=== PATIENT | male | born 1950 | race Caucasian/White ===

== ENCOUNTER 2018-10-07 01:04 | Inpatient (IN) | payer MEDICARE, OTHER ==
[2018-10-07] MEDS ORDERED: NS 0.9% 1000 ML** 1,000 ML IV ONE ×2 (01:30→03:58)
[2018-10-07] MEDS ORDERED: Morphine 4 MG/ML VIAL (1 ml) 4 MG/ML VIAL IV ONE ×3 (01:30→06:42)
[2018-10-07] MEDS ORDERED: Ondansetron INJ* 2 MG/ML VIAL IV ONE (01:31)
--- NOTE | 2018-10-07 01:44 | ED ---
Abdominal Pain/Male - HPI Summary HPI Summary: This patient is a 68 year old male presenting to [facility] with a chief complaint of severe abdominal pains since 3 hours ago. He states it was initially constant but now it is intermittent. He states he had a small bowel movement 30 mins ago. He rates the pain 10/10 in severity. Patient has Hx of inguinal 1X and umbilical hernia 3X. - History of Current Complaint Chief Complaint: EDAbdPain Stated Complaint: ABD PAIN PER PT Hx Obtained From: Patient Onset/Duration: Sudden Onset, Lasting Hours Timing: Constant, Intermittent Severity Currently: Moderate Pain Intensity: 6 Pain Scale Used: 0-10 Numeric Location: Umbilical - Allergies/Home Medications Allergies/Adverse Reactions: Allergies Allergy/AdvReac Type Severity Reaction Status Date / Time No Known Allergies Allergy Verified 10/07/18 01:09 PMH/Surg Hx/FS Hx/Imm Hx Endocrine/Hematology History: Denies: Hx Diabetes Cardiovascular History: Denies: Hx Coronary Artery Disease GI History: Reports: Other GI Disorders - Umbilical and Inguinal Hernia Infectious Disease History: No Infectious Disease History: Denies: Traveled Outside the [place] in Last 30 Days - Family History Known Family History: Positive: Cardiac Disease, Diabetes - Social History Alcohol Use: Daily Hx Substance Use: No Hx Tobacco Use: No Review of Systems Negative: Fever Positive: Abdominal Pain All Other Systems Reviewed And Are Negative: Yes Physical Exam - Summary Physical Exam Summary: VITAL SIGNS: Reviewed. GENERAL: Patient is a well-developed and nourished MALE who is lying comfortable in the stretcher. Patient is not in any acute respiratory distress. HEAD AND FACE: No signs of trauma. No ecchymosis, hematomas or skull depressions. No sinus tenderness. EYES: PERRLA, EOMI x 2, No injected conjunctiva, no nystagmus. EARS: Hearing grossly intact. Ear canals and tympanic membranes are within normal limits. MOUTH: Oropharynx within normal limits. NECK: Supple, trachea is midline, no adenopathy, no JVD, no carotid bruit, no c- spine tenderness, neck with full ROM. CHEST: Symmetric, no tenderness at palpation LUNGS: Clear to auscultation bilaterally. No wheezing or crackles. CVS: Regular rate and rhythm, S1 and S2 present, no murmurs or gallops appreciated. ABDOMEN: Soft, Tenderness over the periumbilical area with localized swelling. Distention. No rebound no guarding, and no masses palpated. Hyperactive bowel sounds. EXTREMITIES: FROM in all major joints, no edema, no cyanosis or clubbing. NEURO: Alert and oriented x 3. No acute neurological deficits. Speech is normal and follows commands. SKIN: Dry and warm Triage Information Reviewed: Yes Vital Signs On Initial Exam: Initial Vitals Temp Pulse Resp BP Pulse Ox 98.5 F 62 18 118/86 95 10/07/18 01:08 10/07/18 01:08 10/07/18 01:08 10/07/18 01:08 10/07/18 01:08 Vital Signs Reviewed: Yes Diagnostics - Vital Signs Vital Signs Temp Pulse Resp BP Pulse Ox 10/07/18 01:08 98.5 F 62 18 118/86 95 - Laboratory Result Diagrams: 10/07/18 01:48 10/07/18 01:48 Lab Statement: Any lab studies that have been ordered have been reviewed, and results considered in the medical decision making process. - CT Abd/Pel CT Interpretation Completed By: Radiologist Summary of CT Findings: 1. Constellation of findings most consistent with developing high grade small bowel obstruction, probably secondary to adhesion. 2. Colonic diverticulosis with no evidence of acute diverticulitis. 3. Multiple roudn hypodense lesions throughout the liver with the largest one on the left hepatic lobe measuring 2.3 cm which may represent cysts versus hemangiomas. ED Provider has reviewed this report. Abdominal Pain Male Course/Dx - Course Course Of Treatment: This patient is a 68 year old male presenting to [facility] with a chief complaint of severe abdominal pains since 3 hours ago. Abdomen/ Pelvis CT reveals 1. Constellation of findings most consistent with developing high grade small bowel obstruction, probably secondary to adhesion. 2. Colonic diverticulosis with no evidence of acute diverticulitis. 3. Multiple roudn hypodense lesions throughout the liver with the largest one on the left hepatic lobe measuring 2.3 cm which may represent cysts versus hemangiomas. Dr. Spangler, Surgery, accepts the patient for admission. This plan for admission was discussed with the patient and he was agreeable with this plan. - Diagnoses Provider Diagnoses: Small bowel obstruction - Provider Notifications Discussed Care Of Patient With: Giovanna Spangler - Surgery Time Discussed With Above Provider: 05:00 Instructed by Provider To: Admit As Inpatient Discharge - Sign-Out/Discharge Documenting (check all that apply): Patient Departure - Admission - Discharge Plan Condition: Stable Disposition: ADMITTED TO [facility] Referrals: Polo Scott MD [Primary Care Provider] - - Attestation Statements Document Initiated by Scribe: Yes Documenting Scribe: Augusto Michele Provider For Whom Scribe is Documenting (Include Credential): Franco Juan MD Scribe Attestation: IAugusto, scribed for Franco Juan MD on 10/07/18 at 0512. Status of Scribe Document: Ready
[2018-10-07 02:03] LABS: ABS Eosinophils 0.1 10^3/ul (0-0.6); ABS Lymphocytes 1.1 10^3/ul (1.0-4.8); ABS Monocytes 0.6 10^3/ul (0-0.8); ABS Neutrophils 10.7 10^3/ul (1.5-7.7); Hematocrit 47 % (42-52); Hemoglobin 15.6 g/dL (14.0-18.0); Lymphocyte % 8.8 %; Mean Corpuscular HGB Conc 33 g/dL (31-36); Mean Corpuscular Hemoglobin 29 pg (27-31); Mean Corpuscular Volume 89 fL (80-94); Mean Platelet Volume 7.6 fL (7.4-10.4); Platelet Count 249 10^3/uL (150-450); Red Blood Count 5.32 10^6 /uL (4.18-5.48); Red Cell Distribution Width 14 % (10.5-15); White Blood Count 12.6 10^3/uL (3.5-10.8)
[2018-10-07 02:04] LABS: Activated Partial Thrombo Time 26.3 seconds (26.0-36.3); INR 1.15 (0.82-1.09)
[2018-10-07 02:13] LABS: Albumin 4.4 g/dL (3.2-5.2); Albumin/Globulin Ratio 1.6 (1-3); C Reactive Protein 4.67 mg/L (<8.01); Calcium 9.8 mg/dL (8.6-10.3); EGFR African American 101.2 (>60); EGFR Non-African American 83.7 (>60); Globulin 2.7 g/dL (2-4); Potassium 4.2 mmol/L (3.5-5.0); Total Bilirubin 0.5 mg/dL (0.2-1.0); Total Protein 7.1 g/dL (6.4-8.9)
[2018-10-07] MEDS ORDERED: Iohexol 300* (CONTRAST) 10 ML SDV IV ONE (02:32)
[2018-10-07] MEDS ORDERED: Piperacillin/Tazobac ADVAN(*) 3.375 GM in NS 0.9% 100 ML* 100 ML IVPB ONE (03:34)
[2018-10-07] MEDS ORDERED: Ondansetron INJ* 2 MG/ML VIAL IV PRN (06:42)
[2018-10-07] MEDS ORDERED: Morphine INJ* 2 MG/ML 1 ML SYRINGE (TWO MG - NEW SYRINGE VERSION) IV PRN (06:46)
[2018-10-07] MEDS ORDERED: Acetaminophen SUPP* 650 MG SUPP PR PRN (06:49)
[2018-10-07] MEDS: Heparin VIAL(*) 5000 UNITS/ML VIAL (FIVE THOUSAND) SUBCUT SCH ×2 (10:15→20:19)
--- NOTE | 2018-10-07 10:25 | HP ---
HISTORY AND PHYSICAL: DATE OF ADMISSION: 10/07/18 SERVICE: General Surgery. ATTENDING SURGEON: Giovanna Spangler MD. REASON FOR ADMISSION: Small-bowel obstruction. HISTORY OF PRESENT ILLNESS: Mr. Chong is a very pleasant 68-year-old gentleman who is a former smoker and has a history of pulmonary emboli who presented to the emergency room with less than 1 day of increasing abdominal pain. The patient notes that he was in his normal state of health until approximately 7: 30 the evening prior to admission. He said that after dinner he started having crampy abdominal pain, which he thought was indigestion. However, after he went to sleep, he found that the pain continued to worsen and that he was unable to fall asleep. Therefore, he came to the emergency room. He describes his pain as being crampy and episodic and saying that it goes up to about 8/10 and then it decreases to about 4 to 5 out of 10. He last had flatus yesterday evening and he last had a bowel movement around midnight. He also said that he normally has regular bowel movements every day and that they are typically soft. He has never had a small-bowel obstruction before. His abdominal surgical history is significant for 3 umbilical hernia repairs. He said that he had a very small umbilical hernia many years ago and the first time it was repaired open; however, it recurred and he had it repaired a second time, also open without mesh, however, this also recurred. He said his third operation was approximately 8 years ago at [facility] in [place], and that this time it was done laparoscopically and a piece of mesh was placed. He states since then he has been doing well. He also has a history of right inguinal hernia repair. Currently, he has no other complaints. He said he has been doing a lot of heavy lifting recently for yard work. PAST MEDICAL HISTORY: 1. Superficial thrombophlebitis. 2. Pulmonary emboli. The patient notes that this was several years ago. He was short of breath after a fishing trip in [place] and when he was evaluated, he was found to have subsegmental pulmonary emboli. He had previously been on Xarelto and stopped this several years ago and is now currently on aspirin 81 mg p.o. daily for this. PAST SURGICAL HISTORY: 1. Umbilical hernia repair x3. 2. Right inguinal hernia repair. MEDICATIONS: 1. Aspirin 81 mg p.o. daily. 2. Centrum daily. ALLERGIES: No known drug allergies. FAMILY HISTORY: Positive for cardiac disease and diabetes. SOCIAL HISTORY: The patient is a former smoker. He lives with his in [place]. 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 REVIEW OF SYSTEMS: Negative, except for abdominal pain. PHYSICAL EXAMINATION GENERAL: This is an elderly man, lying comfortably on the stretcher, in no apparent distress. VITAL SIGNS: Temperature is 98.5, pulse is 70, respiratory rate is 16, O2 sat is 95% O2 on 2 L nasal cannula, blood pressure is 132/86. HEENT: Normocephalic, atraumatic. NG tube is in place with gastric-appearing fluid in the canister. RESPIRATORY: Clear to auscultation bilaterally. CARDIOVASCULAR: Regular rate and rhythm. ABDOMEN: Soft. Minimally distended. Tender to deep palpation just above the umbilicus and also slightly tender in the right lower quadrant. No rebound. No guarding. NEUROLOGIC: Alert and oriented x3. DIAGNOSTIC STUDIES/LAB DATA: Laboratory Values: White blood cell count 12.6, hemoglobin 13.6, hematocrit 47, platelets are 249. INR is 1.15. Sodium is 139 , potassium is 4.2, chloride is 104, CO2 is 26, BUN is 18, creatinine 0.9, glucose is 125, lactic acid is 1.3, calcium is 9.8. Total bilirubin is 0.5, AST is 21, ALT is 20, alkaline phosphatase is 73, amylase is 40, lipase is 24. Radiology: CT abdomen and pelvis, dilation of small-bowel loop with air-fluid level and fecal matter with collapsed distal ileum due to developing high-grade small-bowel obstruction, partial adhesion of small-bowel loop to anterior peritoneal wall, colonic diverticulosis with no evidence of acute diverticulitis , a small hiatal hernia, multiple round hypodense lesions in the liver with the largest one in the hepatic lobe measuring 23 mm which may represent cysts versus hemangiomas. ASSESSMENT AND PLAN: Mr. Chong is a very pleasant 68-year-old gentleman who is a former smoker and has a history of pulmonary emboli and also has a surgical history significant for 3 umbilical hernia surgery repairs (the last one with mesh) who presented to the emergency room with less than 24 hours of periumbilical crampy abdominal pain and had a CT scan concerning for a small- bowel obstruction. I reviewed the CT scan and labs, and I discussed with the patient that he does have a small-bowel obstruction. Currently, his pain is fairly well controlled with minimal pain medications and he only has some slight tenderness. I explained to him that at this time that small-bowel obstructions after surgery are typically due to adhesions and that if there is no immediate evidence of bowel compromise, we typically proceed with conservative management consisting of NG tube placement for bowel decompression as well as bowel rest. He will be monitored and if his pain increases or his bowel obstruction seems to fail with conservative management, he may require surgery. He understands these things. The patient also is a former smoker and does have a history of pulmonary emboli in the past. Currently, he requires 4 L nasal cannula to maintain his saturations in the mid 90s and he has desaturated down into the lower 80s after being administered morphine. I have consulted the hospitalist service to follow along for his hypoxia. I have also counseled the patient that he should perform an incentive spirometry while he is lying in bed and that he should also ambulate several times a day, which he can do with the NG tube off of suction. The patient will be made n.p.o. IV fluids will be started. NG tube will be to low continuous wall suction. He will have morphine and Toradol p.r.n. for pain relief and Zofran for p.r.n. medication for nausea. Currently, his aspirin is being held. [id number]/[facility] #: [id number] CROUSE HOSPITALLeslee
[2018-10-07] MEDS ORDERED: Iohexol 350* (CONTRAST) 500 ML MDV IV ONE (13:29)
[2018-10-07] MEDS: Ketorolac INJ* 30 MG/ML 1 ML VIAL IV PRN ×2 (13:30→21:44)
--- NOTE | 2018-10-07 16:32 | CONS ---
HOSPITAL MEDICINE CONSULTATION REPORT: DATE OF CONSULT: 10/07/18 ATTENDING PHYSICIAN: Dr. Giovanna Spangler. CONSULTING PHYSICIAN: Dr. Fabiola Abdalla (dictation provided by Sylwia Moreau NP). REASON FOR CONSULTATION: Hypoxia in setting of SBO. HISTORY OF PRESENT ILLNESS: Mr. Chong is a 68-year-old male with a past medical history of pulmonary emboli, associated with travel, and umbilical hernia repair x3, who presented to the hospital on 10/07/18 with concern for abdominal pain. Please see dictated H and P from Giovanna Spangler MD, for complete details. In brief, the patient stated he was in his normal state of health until 7:30 the evening of admission. He had crampy abdominal pain. Pain continued to worsen and therefore he came to the ED. His last bowel movement was at midnight that night. In the emergency room, he had an abdomen and pelvis CT, which showed concern for a small bowel obstruction. The patient had labs, showed mild leukocytosis, white blood cell count 12.6, but were otherwise unremarkable. The patient had an NG tube placed and was admitted to the hospital by the surgical team. Mr. Chong has been noted to be hypoxic on room air. He was noted to have an O2 saturation into the 80s while sleeping. Today, he was noted to be up ambulating independently without oxygen and had an O2 saturation of 88% on return to his room. He has no history of lung disease, but does have a distant history of smoking, quitting 20 years ago. He also has the aforementioned history of pulmonary embolism. He is not tachycardic. He is not tachypneic. PAST MEDICAL HISTORY: 1. History of umbilical hernia repair x3. 2. History of pulmonary emboli associated with travel. MEDICATIONS: Outpatient are: 1. Aspirin 81 mg p.o. daily. 2. Centrum p.o. daily. ALLERGIES: No known drug allergies. FAMILY HISTORY: Positive for cardiac disease and diabetes. SOCIAL HISTORY: The patient is a former smoker. He quit 20 years ago. No reported alcohol drug use. 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 REVIEW OF SYSTEMS: A 14-point review of systems was completed with Mr. Chong and all of those not mentioned above were negative. PHYSICAL EXAM: Vital Signs: Temperature 98.2, but he has had a fever up to 100.1 , pulse rate 62, respiratory rate 17, O2 saturation 98% on 4 L nasal cannula, blood pressure 115/65. General: Mr. Chong was initially seen upon ambulating in the hallway, not on oxygen. He is no acute distress. No respiratory distress. Breathing easily. Neuro: He is alert. He is oriented x3. He moves all extremities equally. There is no facial asymmetry or focal weakness. Extraocular movements are intact. Heart: S1, S2. No murmur, rub, or gallop and regular. Lungs: Clear to auscultation bilaterally. No accessory muscles use. Good aeration. Abdomen: Soft. There is tenderness in the middle of the abdomen above the umbilicus. Bowel sounds are hypoactive. Extremities: No cyanosis or edema. Skin: Intact. DIAGNOSTIC STUDIES/LAB DATA: Sodium 139, potassium 4.2, chloride 104, serum bicarbonate 26, BUN 18, creatinine 0.90, glucose 125, lactic acid 1.3. WBC 12.6 , hemoglobin 15.6, hematocrit 47, platelet count 249. INR 1.15. PT 26.3. The abdomen and pelvis CT is as follows: "Constellation of findings most consistent with developing high-grade small bowel obstruction, probably secondary to adhesion, colonic diverticulosis with no evidence of acute diverticulitis. Multiple round hypodense lesions throughout the liver with the largest one in the left hepatic lobe measuring 2.3 cm, which may represent cyst versus hemangiomas." ASSESSMENT: Mr. Chong is a 68-year-old male with past medical history of 3 umbilical hernia repairs, who presents to the hospital today with concern for a small bowel obstruction and hypoxia. He has been admitted by surgical team and a consultation has been made to the medicine service regarding his hypoxia. RECOMMENDATIONS: Our recommendations are as follows: 1. Hypoxia: Initially, I had a strong suspicion that the patient had atelectasis due to pain and lack of taking a deep breath leading to his hypoxia. However, despite being up ambulating on the unit and seeming to be breathing easily with no report of pain in the abdomen, he continued to be hypoxic. Therefore, I plan to order a D-dimer; if it is negative, workup will be completed for PE, but if it is elevated, we will need to go into CTA chest to adequately rule out PE. He has no evidence of pneumonia. 2. Small bowel obstruction. Management per Surgery. 3. Code status is full code. TIME SPENT: Approximately 60 minutes were spent in consultation of this patient ; more than half of the time spent with the patient at the bedside reviewing the events leading up to this hospitalization, performing physical examination and reviewing my plan of care. SYLWIA MOREAU NP [id number]/[facility] #: [id number] [facility]
[2018-10-07] MEDS: Lactated Ringers 1000 ML Bag* 1,000 ML IV SCH (17:18)
[2018-10-08 00:39] LABS: ABS Eosinophils 0.1 10^3/ul (0-0.6); ABS Monocytes 0.5 10^3/ul (0-0.8); ABS Neutrophils 9.8 10^3/ul (1.5-7.7); Eosinophil % 0.5 %; Hematocrit 40 % (42-52); Hemoglobin 13.3 g/dL (14.0-18.0); Mean Corpuscular HGB Conc 33 g/dL (31-36); Mean Corpuscular Hemoglobin 29 pg (27-31); Mean Corpuscular Volume 88 fL (80-94); Mean Platelet Volume 7.7 fL (7.4-10.4); Platelet Count 212 10^3/uL (150-450); Red Blood Count 4.56 10^6 /uL (4.18-5.48); Red Cell Distribution Width 14 % (10.5-15); White Blood Count 11.5 10^3/uL (3.5-10.8)
[2018-10-08 06:22] LABS: Calcium 8.7 mg/dL (8.6-10.3); Potassium 3.8 mmol/L (3.5-5.0)
[2018-10-08 06:28] LABS: BUN/Creatinine Ratio 19.2 (8-20); EGFR African American 119.4 (>60); EGFR Non-African American 98.7 (>60)
--- NOTE | 2018-10-08 08:16 | PN ---
Progress Note - Progress Note Date of Service: 10/08/18 Note: Surgery Progress Note S: Patient was seen yesterday afternoon and this morning by myself. Yesterday' s events were noted. He continues to desaturate to low-mid 80s without supplemental O2. D dimer was elevated so CTA chest to evaluate for PE was ordered and resulted negative for PE. Patient this morning was noted to have abnormal heart rhythm, EKG was ordered and found to be in atrial fibrillation. Patient says he has never known of desaturations, never had afib before. He has never felt any irregular heart beats or skipped beats at home. He walks everyday several miles. Regarding his abdominal pain, he says he has no pain. He has a twinge of pain, 2/10 when he gets out of bed. No flatus or BM yet. Has heard bowel sounds. O: Vital Signs: Temp Pulse Resp BP Pulse Ox 98.5 F 88 16 99/56 91 10/08/18 07:15 10/08/18 07:15 10/08/18 08:00 10/08/18 07:15 10/08/18 07:15 Laboratory Last Values WBC 11.5 10^3/uL (3.5-10.8) H 10/08/18 00:28 RBC 4.56 10^6 /uL (4.18-5.48) 10/08/18 00:28 Hgb 13.3 g/dL (14.0-18.0) L 10/08/18 00:28 Hct 40 % (42-52) L 10/08/18 00:28 MCV 88 fL (80-94) 10/08/18 00:28 MCH 29 pg (27-31) 10/08/18 00:28 MCHC 33 g/dL (31-36) 10/08/18 00:28 RDW 14 % (10.5-15) 10/08/18 00:28 Plt Count 212 10^3/uL (150-450) 10/08/18 00:28 MPV 7.7 fL (7.4-10.4) 10/08/18 00:28 Neut % (Auto) 85.4 % 10/08/18 00:28 Lymph % (Auto) 9.0 % 10/08/18 00:28 Briscoe % (Auto) 4.7 % 10/08/18 00:28 Eos % (Auto) 0.5 % 10/08/18 00:28 Baso % (Auto) 0.4 % 10/08/18 00:28 Absolute Neuts (auto) 9.8 10^3/ul (1.5-7.7) H 10/08/18 00:28 Absolute Lymphs (auto) 1.0 10^3/ul (1.0-4.8) 10/08/18 00:28 Absolute Monos (auto) 0.5 10^3/ul (0-0.8) 10/08/18 00:28 Absolute Eos (auto) 0.1 10^3/ul (0-0.6) 10/08/18 00:28 Absolute Basos (auto) 0.0 10^3/ul (0-0.2) 10/08/18 00:28 Absolute Nucleated RBC 0.0 10^3/ul 10/08/18 00:28 Nucleated RBC % 0.0 10/08/18 00:28 INR (Anticoag Therapy) 1.15 (0.82-1.09) H 10/07/18 01:48 APTT 26.3 seconds (26.0-36.3) 10/07/18 01:48 D-Dimer, Quantitative 385 ng/mL (Less Than 230) H 10/07/18 11:36 Sodium 139 mmol/L (135-145) 10/08/18 04:41 Potassium 3.8 mmol/L (3.5-5.0) 10/08/18 04:41 Chloride 109 mmol/L (101-111) 10/08/18 04:41 Carbon Dioxide 24 mmol/L (22-32) 10/08/18 04:41 Anion Gap 6 mmol/L (2-11) 10/08/18 04:41 BUN 15 mg/dL (6-24) 10/08/18 04:41 Creatinine 0.78 mg/dL (0.67-1.17) 10/08/18 04:41 Est GFR ( Amer) 119.4 (>60) 10/08/18 04:41 Est GFR (Non-Af Amer) 98.7 (>60) 10/08/18 04:41 BUN/Creatinine Ratio 19.2 (8-20) 10/08/18 04:41 Glucose 123 mg/dL (70-100) H 10/08/18 04:41 Lactic Acid 1.3 mmol/L (0.5-2.0) 10/07/18 01:48 Calcium 8.7 mg/dL (8.6-10.3) 10/08/18 04:41 Total Bilirubin 0.50 mg/dL (0.2-1.0) 10/07/18 01:48 AST 21 U/L (13-39) 10/07/18 01:48 ALT 20 U/L (7-52) 10/07/18 01:48 Alkaline Phosphatase 73 U/L (34-104) 10/07/18 01:48 C-Reactive Protein 4.67 mg/L (<8.01) 10/07/18 01:48 Total Protein 7.1 g/dL (6.4-8.9) 10/07/18 01:48 Albumin 4.4 g/dL (3.2-5.2) 10/07/18 01:48 Globulin 2.7 g/dL (2-4) 10/07/18 01:48 Albumin/Globulin Ratio 1.6 (1-3) 10/07/18 01:48 Amylase 40 U/L (29-103) 10/07/18 01:48 Lipase 24 U/L (11.0-82.0) 10/07/18 01:48 Blood Type B Positive 10/07/18 01:48 Antibody Screen Negative 10/07/18 01:48 Intake & Output 10/07/18 10/08/18 10/08/18 22:59 06:59 14:59 Intake Total 959 450 Output Total 300 110 Balance 659 340 Intake: IV Fluids 959 LR 959 Oral 0 450 Output: NG Tube Drainage Amount 50 110 Urine 250 0 Other: # Bowel Movements 0 NGT x 12 hour, approximately 160cc Physical exam: Abd- soft, non tender, minimally distended, +bowel sounds Resp- CTAB Card- irregular rhythm A/P: 68 M former smoker, history of PE, history of UHR x 3 with SBO. - Patient appears to be improving regarding his SBO although he still does not have any bowel function. If NGT output remains low today I will remove NGT later this afternoon and keep NPO until he has flatus. His pain is much improved and his exam is improved. - Hypoxia: uncertain what the etiology is, he does not have PE or much atelectasis. Not very distended on exam so it is unlikely mechanical from his SBO. Likely chronic, although patient has excellent exercise tolerance from his history and has no symptomatic SOB. Will likely have to follow up with PCP , and discussed this with patient. Will defer this care to hospitalists. - New onset atrial fibrillation: awaiting hospitalist evaluation. Will discuss if cardiology should be consulted. - Diet: NPO, IVF - PPX: HSQ - Continue OOB and ambulation
[2018-10-08] MEDS: Metoprolol Tartrate TAB* 25 MG PO SCH ×2 (10:33→22:07)
[2018-10-08] MEDS: Heparin VIAL(*) 5000 UNITS/ML VIAL (FIVE THOUSAND) SUBCUT SCH ×2 (10:33→22:11)
[2018-10-08] MEDS: Lactated Ringers 1000 ML Bag* 1,000 ML IV SCH ×2 (10:45→17:49)
--- NOTE | 2018-10-08 15:04 | PN ---
Subjective Date of Service: 10/08/18 Interval History: Mr. Chong is feeling much better today. His abdominal pain has resolved and he is only having abdominal tenderness now, centered around umbilicus. Worse with movement in bed. Still feels bloated, but improved from yesterday. Not passing any flatus and no BM. Anxious to have NG tube removed. Denies CP, SOB, nausea, palpitations. Nursing reported new onset afib this morning. Tele: afib in the low 100s, now converted to NSR. Family History: Unchanged from Admission Social History: Unchanged from Admission Past Medical History: Unchanged from Admission Objective Active Medications: Acetaminophen (Tylenol Supp*) 650 mg IN Q6H PRN PAIN - MILD Heparin Sodium (Porcine) (Heparin Vial(*)) 5,000 units SUBCUT Q12HR WALDEMAR Lactated Ringer's (Lactated Ringers 1000 Ml Bag*) 1,000 mls @ 125 mls/hr IV PER RATE WALDEMAR Ketorolac Tromethamine (Toradol Inj*) 30 mg IV Q6H PRN PAIN Metoprolol Tartrate (Lopressor Tab*) 12.5 mg PO Q12HR WALDEMAR Morphine Sulfate (Morphine Inj (Syringe))*) 2 mg IV Q1H PRN PAIN - MILD Ondansetron HCl (Zofran Inj*) 4 mg IV Q4H PRN NAUSEA/VOMITING Vital Signs - 8 hr 10/08/18 10/08/18 10/08/18 07:15 08:00 11:16 Temperature 98.5 F 98.2 F Pulse Rate 88 82 Respiratory 17 16 18 Rate Blood Pressure 99/56 114/61 (mmHg) O2 Sat by Pulse 91 94 Oximetry 10/08/18 10/08/18 12:46 14:09 Temperature 98.4 F Pulse Rate 73 Respiratory 16 Rate Blood Pressure 114/62 (mmHg) O2 Sat by Pulse 93 91 Oximetry Oxygen Devices in Use Now: Nasal Cannula - 2L Appearance: Middle-aged male sitting in bed in NAD Eyes: No Scleral Icterus Ears/Nose/Mouth/Throat: Mucous Membranes Moist Neck: NL Appearance and Movements; NL JVP, Trachea Midline Respiratory: Symmetrical Chest Expansion and Respiratory Effort, Clear to Auscultation Cardiovascular: NL Sounds; No Murmurs; No JVD, RRR Abdominal: - - Large, distended; umbilicus tender to palpation; BS normoactive L side and hypoactive R side Extremities: No Edema Skin: No Rash or Ulcers Neurological: Alert and Oriented x 3 Lines/Tubes/Other Access: Clean, Dry and Intact Naso-enteral Tube, Clean, Dry and Intact Peripheral IV Result Diagrams: 10/08/18 00:28 10/08/18 04:41 Assess/Plan/Problems-Billing Assessment: Mr. Chong is a 68 yo M with PMH of provoked PE who presented to the ED with c/o abdominal pain and was found to have a SBO. Hospital Medicine was asked to consult for hypoxia, though the patient went into new onset afib and is now on the Hospitalists' service. - Patient Problems (1) SBO (small bowel obstruction) Code(s): K56.609 - UNSP INTESTNL OBST, UNSP TO PARTIAL VERSUS COMPLETE OBST Comment: - Presented with c/o 1 day of severe abdominal pain, now significantly improved - CT showed findings most consistent with developing high grade SBO, possibly secondary to adhesion - Surgery following; may remove NG today if symptoms continue to improve and will continue conservative management - Continue IVF, Zofran, Toradol (2) New onset atrial fibrillation Code(s): I48.91 - UNSPECIFIED ATRIAL FIBRILLATION Comment: - Found to be tachycardic overnight and EKG revealed afib at 105bpm - Asymptomatic - CHADsVASC2 score 1; no indication for anticoagulation - Started metoprolol and patient converted back to NSR shortly after - Monitor on telemetry - Continue metoprolol (3) Hypoxia Code(s): R09.02 - HYPOXEMIA Comment: - History of provoked DVT years ago, no longer on anticoagulation - Hypoxic into mid 80s on RA initially requiring 2L NC, now weaned down to 1L and sating low 90s - CTA unremarkable except for bibasilar atelectasis - Unclear etiology as he is typically quite active, walking up to 3 miles daily ; ? atelectasis, ? smoking history - Continue to wean oxygen as able (4) DVT prophylaxis Code(s): Z29.9 - ENCOUNTER FOR PROPHYLACTIC MEASURES, UNSPECIFIED Comment: - Heparin SQ (5) Full code status Code(s): Z78.9 - OTHER SPECIFIED HEALTH STATUS Comment: Status and Disposition: Inpatient. Anticipate d/c home when medically stable and cleared by Surgery. Attending: Augusto Nathan
[2018-10-09 00:03] LABS: Urine Appearance Cloudy; Urine Bacteria Absent (Absent); Urine Bilirubin Negative (Negative); Urine Blood Negative (Negative); Urine Color Amber; Urine Glucose Negative (Negative); Urine Ketones 2+ (Negative); Urine Nitrite Negative (Negative); Urine Protein 1+(30 mg/dL) (Negative); Urine Red Blood Cell 2+(6-10/hpf) (Absent); Urine Squamous Epithelial Cell Present (Absent); Urine Urobilinogen Negative (Negative); Urine White Blood Cell Trace(0-5/hpf) (Absent)
[2018-10-09 00:27] LABS: ABS Eosinophils 0.1 10^3/ul (0-0.6); ABS Lymphocytes 1.1 10^3/ul (1.0-4.8); ABS Monocytes 0.6 10^3/ul (0-0.8); ABS Neutrophils 7.9 10^3/ul (1.5-7.7); Eosinophil % 1.5 %; Hematocrit 41 % (42-52); Hemoglobin 13.7 g/dL (14.0-18.0); Lymphocyte % 11.5 %; Mean Corpuscular HGB Conc 33 g/dL (31-36); Mean Corpuscular Hemoglobin 30 pg (27-31); Mean Corpuscular Volume 89 fL (80-94); Mean Platelet Volume 7.5 fL (7.4-10.4); Platelet Count 217 10^3/uL (150-450); Red Blood Count 4.65 10^6 /uL (4.18-5.48); Red Cell Distribution Width 14 % (10.5-15); White Blood Count 9.9 10^3/uL (3.5-10.8)
[2018-10-09] MEDS: Lactated Ringers 1000 ML Bag* 1,000 ML IV SCH ×3 (03:08→16:40)
[2018-10-09 06:45] LABS: BUN/Creatinine Ratio 19.5 (8-20); Calcium 8.5 mg/dL (8.6-10.3); EGFR African American 121.2 (>60); EGFR Non-African American 100.2 (>60); Potassium 3.6 mmol/L (3.5-5.0)
[2018-10-09] MEDS: Heparin VIAL(*) 5000 UNITS/ML VIAL (FIVE THOUSAND) SUBCUT SCH ×2 (08:06→21:14)
[2018-10-09] MEDS: Metoprolol Tartrate TAB* 25 MG PO SCH ×2 (08:07→21:12)
--- NOTE | 2018-10-09 08:34 | PN ---
Progress Note - Progress Note Date of Service: 10/09/18 Note: Surgery Progress Note S: Patient feels very well. Has been ambulating already this morning and had flatus multiple times. Yesterday afternoon he said he had a small flatus then. He has no pain. He denies SOB. O: Vital Signs: Temp Pulse Resp BP Pulse Ox 97.9 F 76 18 143/65 92 10/09/18 07:46 10/09/18 07:46 10/09/18 07:46 10/09/18 07:46 10/09/18 07:46 Laboratory Results - last 24 hr 10/08/18 10/09/18 10/09/18 23:50 00:22 06:03 WBC 9.9 RBC 4.65 Hgb 13.7 L Hct 41 L MCV 89 MCH 30 MCHC 33 RDW 14 Plt Count 217 MPV 7.5 Neut % (Auto) 80.0 Lymph % (Auto) 11.5 [place] % (Auto) 6.6 Eos % (Auto) 1.5 Baso % (Auto) 0.4 Absolute Neuts (auto) 7.9 H Absolute Lymphs (auto) 1.1 Absolute Monos (auto) 0.6 Absolute Eos (auto) 0.1 Absolute Basos (auto) 0.0 Absolute Nucleated RBC 0.0 Nucleated RBC % 0.0 Sodium 140 Potassium 3.6 Chloride 108 Carbon Dioxide 24 Anion Gap 8 BUN 15 Creatinine 0.77 Est GFR ( Amer) 121.2 Est GFR (Non-Af Amer) 100.2 BUN/Creatinine Ratio 19.5 Glucose 101 H Calcium 8.5 L Urine Color Priscilla Urine Appearance Cloudy Urine pH 5.0 Ur Specific [place] 1.030 Urine Protein 1+(30 mg/dl) A Urine Ketones 2+ A Urine Blood Negative Urine Nitrate Negative Urine Bilirubin Negative Urine Urobilinogen Negative Ur Leukocyte Esterase Negative Urine WBC (Auto) Trace(0-5/hpf) Urine RBC (Auto) 2+(6-10/hpf) A Ur Squamous Epith Cells Present A Urine Bacteria Absent Urine Glucose Negative Intake & Output 10/08/18 10/09/18 10/09/18 22:59 06:59 14:59 Intake Total 480 480 Balance 480 480 Intake: Oral 480 480 Abd: soft, non tender, minimally distended, + tympany A/P: 68 M with h/o UHR x 3, former smoker, h/o PE with SBO, appears to be resolving. - DC NGT - Sips now, can likely start CLD later this afternoon - Discussed with patient we could consider a suppository but likely do not need that now since he is having return of bowel function - Continue OOB and ambulate - MTP for new onset afib, now in NSR. I told patient he would have to f/u with his PCP regarding both the afib and the hypoxia, which may be a chronic condition? - Continue HSQ for DVT ppx Discussed plan with patient's nurse and hospitalist, Nataliia Pate
--- NOTE | 2018-10-09 15:27 | PN ---
Subjective Date of Service: 10/09/18 Interval History: Mr. Chong is feeling better this morning. He has been passing some gas. No abdominal pain, but still some tenderness when moving in bed. He has been up ambulating around the unit. Denies CP, SOB, nausea. No palpitations. Nursing reported a large formed BM late morning. Tolerated clears for lunch. Tele: NSR in the 70s. Family History: Unchanged from Admission Social History: Unchanged from Admission Past Medical History: Unchanged from Admission Objective Active Medications: Acetaminophen (Tylenol Supp*) 650 mg [place] Q6H PRN PAIN - MILD Heparin Sodium (Porcine) (Heparin Vial(*)) 5,000 units SUBCUT Q12HR WALDEMAR Lactated Ringer's (Lactated Ringers 1000 Ml Bag*) 1,000 mls @ 125 mls/hr IV PER RATE WALDEMAR Metoprolol Tartrate (Lopressor Tab*) 12.5 mg PO Q12HR WALDEMAR Morphine Sulfate (Morphine Inj (Syringe))*) 2 mg IV Q1H PRN PAIN - MILD Ondansetron HCl (Zofran Inj*) 4 mg IV Q4H PRN NAUSEA/VOMITING Vital Signs - 8 hr 10/09/18 10/09/18 10/09/18 07:46 08:00 10:54 Temperature 97.9 F 97.5 F Pulse Rate 76 63 Respiratory 18 18 16 Rate Blood Pressure 143/65 143/70 (mmHg) O2 Sat by Pulse 92 94 Oximetry Appearance: Elderly male sitting in bed in NAD Eyes: No Scleral Icterus Ears/Nose/Mouth/Throat: Mucous Membranes Moist Neck: NL Appearance and Movements; NL JVP, Trachea Midline Respiratory: Symmetrical Chest Expansion and Respiratory Effort, Clear to Auscultation Cardiovascular: NL Sounds; No Murmurs; No JVD, RRR Abdominal: - - Large, soft, tender to midline Extremities: No Edema Skin: No Rash or Ulcers Neurological: Alert and Oriented x 3, NL Gait Lines/Tubes/Other Access: Clean, Dry and Intact Peripheral IV Result Diagrams: 10/09/18 00:22 10/09/18 06:03 Assess/Plan/Problems-Billing Assessment: Mr. Chong is a 68 yo M with PMH of provoked PE who presented to the ED with c/o abdominal pain and was found to have a SBO. Hospital Medicine was asked to consult for hypoxia, though the patient went into new onset afib and is now on the Hospitalists' service. - Patient Problems (1) SBO (small bowel obstruction) Code(s): K56.609 - UNSP INTESTNL OBST, UNSP TO PARTIAL VERSUS COMPLETE OBST Comment: - Presented with c/o 1 day of severe abdominal pain, now significantly improved - CT showed findings most consistent with developing high grade SBO, possibly secondary to adhesion - Surgery following; NG removed today and recommends starting clears - Tolerated clears at lunch, will advance to soft diet for dinner and plan for d /c tomorrow morning if he does well overnight - Continue IVF, Zofran, Toradol (2) New onset atrial fibrillation Code(s): I48.91 - UNSPECIFIED ATRIAL FIBRILLATION Comment: - Found to be tachycardic 10/08/18 and EKG revealed afib at 105bpm - Asymptomatic - CHADsVASC2 score 1; no indication for anticoagulation - Started metoprolol and patient converted back to NSR shortly after - Monitor on telemetry - Continue metoprolol (3) Hypoxia Code(s): R09.02 - HYPOXEMIA Comment: - Resolved, sating well on RA - History of provoked DVT years ago, no longer on anticoagulation - Hypoxic into mid 80s on RA initially requiring 2L NC - CTA unremarkable except for bibasilar atelectasis - Unclear etiology as he is typically quite active, walking up to 3 miles daily ; ? atelectasis, ? smoking history (4) DVT prophylaxis Code(s): Z29.9 - ENCOUNTER FOR PROPHYLACTIC MEASURES, UNSPECIFIED Comment: - Heparin SQ (5) Full code status Code(s): Z78.9 - OTHER SPECIFIED HEALTH STATUS Comment: Status and Disposition: Inpatient. Anticipate d/c home when medically stable and cleared by Surgery, likely tomorrow if he tolerates diet. Attending: Augusto Nathan
[2018-10-10 00:23] LABS: ABS Eosinophils 0.2 10^3/ul (0-0.6); ABS Lymphocytes 1.3 10^3/ul (1.0-4.8); ABS Monocytes 0.6 10^3/ul (0-0.8); ABS Neutrophils 6.4 10^3/ul (1.5-7.7); Eosinophil % 2.7 %; Hematocrit 41 % (42-52); Hemoglobin 13.6 g/dL (14.0-18.0); Mean Corpuscular HGB Conc 34 g/dL (31-36); Mean Corpuscular Hemoglobin 30 pg (27-31); Mean Corpuscular Volume 88 fL (80-94); Mean Platelet Volume 7.3 fL (7.4-10.4); Nucleated Red Blood Cells % 0.1; Platelet Count 221 10^3/uL (150-450); Red Cell Distribution Width 14 % (10.5-15); White Blood Count 8.6 10^3/uL (3.5-10.8)
[2018-10-10] MEDS: Lactated Ringers 1000 ML Bag* 1,000 ML IV SCH ×2 (01:02→08:50)
[2018-10-10 06:51] LABS: BUN/Creatinine Ratio 19.4 (8-20); Calcium 8.2 mg/dL (8.6-10.3); EGFR African American 142.3 (>60); EGFR Non-African American 117.6 (>60); Potassium 3.7 mmol/L (3.5-5.0)
[2018-10-10] MEDS: Heparin VIAL(*) 5000 UNITS/ML VIAL (FIVE THOUSAND) SUBCUT SCH (08:29)
[2018-10-10] MEDS: Metoprolol Tartrate TAB* 25 MG PO SCH (08:30)
[2018-10-10] MEDS ORDERED: Aspirin EC TAB* 81 MG TAB.EC PO SCH (09:00)
[2018-10-10 13:03] VITALS: BP 131/71
--- NOTE | 2018-10-10 14:23 | PN ---
Progress Note - Progress Note Date of Service: 10/10/18 Note: Surgery Progress Note S: Patient is doing very well. He feels well and has had BM, flatus and is tolerating a soft diet without nausea or emesis. He does say he feels occasional cramping in his abdomen since starting soft but it is not severe. He has not required any pain medications. He continues to ambulate. O: Vital Signs: Temp Pulse Resp BP Pulse Ox 97.5 F 61 20 131/71 97 10/10/18 11:06 10/10/18 11:06 10/10/18 11:06 10/10/18 11:06 10/10/18 11:06 Vital Signs - 24 hr 10/09/18 10/09/18 10/09/18 15:20 19:28 19:46 Temperature 97.9 F 98.1 F Pulse Rate 71 71 Respiratory 18 16 16 Rate Blood Pressure 127/70 126/74 (mmHg) O2 Sat by Pulse 93 94 Oximetry 10/10/18 10/10/18 10/10/18 03:26 07:30 08:00 Temperature 99.4 F 98.2 F Pulse Rate 75 72 Respiratory 18 16 19 Rate Blood Pressure 107/53 125/67 (mmHg) O2 Sat by Pulse 92 94 Oximetry 10/10/18 10/10/18 08:16 11:06 Temperature 97.5 F Pulse Rate 73 61 Respiratory 20 Rate Blood Pressure 131/71 (mmHg) O2 Sat by Pulse 97 Oximetry Laboratory Last Values WBC 8.6 10^3/uL (3.5-10.8) 10/10/18 00:17 RBC 4.60 10^6 /uL (4.18-5.48) 10/10/18 00:17 Hgb 13.6 g/dL (14.0-18.0) L 10/10/18 00:17 Hct 41 % (42-52) L 10/10/18 00:17 MCV 88 fL (80-94) 10/10/18 00:17 MCH 30 pg (27-31) 10/10/18 00:17 MCHC 34 g/dL (31-36) 10/10/18 00:17 RDW 14 % (10.5-15) 10/10/18 00:17 Plt Count 221 10^3/uL (150-450) 10/10/18 00:17 MPV 7.3 fL (7.4-10.4) L 10/10/18 00:17 Neut % (Auto) 74.7 % 10/10/18 00:17 Lymph % (Auto) 15.0 % 10/10/18 00:17 [place] % (Auto) 7.2 % 10/10/18 00:17 Eos % (Auto) 2.7 % 10/10/18 00:17 Baso % (Auto) 0.4 % 10/10/18 00:17 Absolute Neuts (auto) 6.4 10^3/ul (1.5-7.7) 10/10/18 00:17 Absolute Lymphs (auto) 1.3 10^3/ul (1.0-4.8) 10/10/18 00:17 Absolute Monos (auto) 0.6 10^3/ul (0-0.8) 10/10/18 00:17 Absolute Eos (auto) 0.2 10^3/ul (0-0.6) 10/10/18 00:17 Absolute Basos (auto) 0.0 10^3/ul (0-0.2) 10/10/18 00:17 Absolute Nucleated RBC 0.0 10^3/ul 10/10/18 00:17 Nucleated RBC % 0.1 10/10/18 00:17 INR (Anticoag Therapy) 1.15 (0.82-1.09) H 10/07/18 01:48 APTT 26.3 seconds (26.0-36.3) 10/07/18 01:48 D-Dimer, Quantitative 385 ng/mL (Less Than 230) H 10/07/18 11:36 Sodium 139 mmol/L (135-145) 10/10/18 06:01 Potassium 3.7 mmol/L (3.5-5.0) 10/10/18 06:01 Chloride 108 mmol/L (101-111) 10/10/18 06:01 Carbon Dioxide 24 mmol/L (22-32) 10/10/18 06:01 Anion Gap 7 mmol/L (2-11) 10/10/18 06:01 BUN 13 mg/dL (6-24) 10/10/18 06:01 Creatinine 0.67 mg/dL (0.67-1.17) 10/10/18 06:01 Est GFR ( Amer) 142.3 (>60) 10/10/18 06:01 Est GFR (Non-Af Amer) 117.6 (>60) 10/10/18 06:01 BUN/Creatinine Ratio 19.4 (8-20) 10/10/18 06:01 Glucose 112 mg/dL (70-100) H 10/10/18 06:01 Lactic Acid 1.3 mmol/L (0.5-2.0) 10/07/18 01:48 Calcium 8.2 mg/dL (8.6-10.3) L 10/10/18 06:01 Total Bilirubin 0.50 mg/dL (0.2-1.0) 10/07/18 01:48 AST 21 U/L (13-39) 10/07/18 01:48 ALT 20 U/L (7-52) 10/07/18 01:48 Alkaline Phosphatase 73 U/L (34-104) 10/07/18 01:48 C-Reactive Protein 4.67 mg/L (<8.01) 10/07/18 01:48 Total Protein 7.1 g/dL (6.4-8.9) 10/07/18 01:48 Albumin 4.4 g/dL (3.2-5.2) 10/07/18 01:48 Globulin 2.7 g/dL (2-4) 10/07/18 01:48 Albumin/Globulin Ratio 1.6 (1-3) 10/07/18 01:48 Amylase 40 U/L (29-103) 10/07/18 01:48 Lipase 24 U/L (11.0-82.0) 10/07/18 01:48 Urine Color Priscilla 10/08/18 23:50 Urine Appearance Cloudy 10/08/18 23:50 Urine pH 5.0 (5-9) 10/08/18 23:50 Ur Specific [place] 1.030 (1.010-1.030) 10/08/18 23:50 Urine Protein 1+(30 mg/dl) (Negative) A 10/08/18 23:50 Urine Ketones 2+ (Negative) A 10/08/18 23:50 Urine Blood Negative (Negative) 10/08/18 23:50 Urine Nitrate Negative (Negative) 10/08/18 23:50 Urine Bilirubin Negative (Negative) 10/08/18 23:50 Urine Urobilinogen Negative (Negative) 10/08/18 23:50 Ur Leukocyte Esterase Negative (Negative) 10/08/18 23:50 Urine WBC (Auto) Trace(0-5/hpf) (Absent) 10/08/18 23:50 Urine RBC (Auto) 2+(6-10/hpf) (Absent) A 10/08/18 23:50 Ur Squamous Epith Cells Present (Absent) A 10/08/18 23:50 Urine Bacteria Absent (Absent) 10/08/18 23:50 Urine Glucose Negative (Negative) 10/08/18 23:50 Blood Type B Positive 10/07/18 01:48 Antibody Screen Negative 10/07/18 01:48 Intake & Output 10/09/18 10/10/18 10/10/18 22:59 06:59 14:59 Intake Total 298 402 3120 Output Total 360 Balance 300 944 880 Intake: IV Fluids 944 LR 944 Oral 300 1240 Output: Urine 360 Abdomen: Soft, non tender, minimally distended A/P: 68 M with history of UHR X 3 with SBO, clinically resolved. - I counseled patient that when he goes home he should continue liquids/soft food and slowly advance his diet over the next several days/weeks. I counseled him that SBO can recur and he should return to ED for similar symptoms he felt before, such as abdominal pain, nausea, emesis, lack of flatus and bowel movements. I told him and his that if they recur frequently he may require surgery for lysis of adhesions. They understand all these things and wish to be discharged today. - Patient should follow up with his PCP and refer to cardiology for new onset atrial fibrillation. - Patient's hypoxia has improved after removal of NGT. He remains on room air. I discussed plan with patient, his and hospitalist, Nataliia Pate.
--- NOTE | 2018-10-10 17:26 | DS ---
CC: Dr. Polo Scott; Dr. Giovanna Spangler* DISCHARGE SUMMARY: DATE OF ADMISSION: 10/07/18 DATE OF DISCHARGE: 10/10/18 PRIMARY CARE PROVIDER: Dr. Polo Scott. ATTENDING PHYSICIAN: Dr. Augusto Nathan* (dictated by Nataliia Pate NP). PRIMARY DIAGNOSES: 1. Small bowel obstruction. 2. New-onset paroxysmal atrial fibrillation. 3. Hypoxia. SECONDARY DIAGNOSIS: History of pulmonary embolism. STUDIES WHILE IN THE HOSPITAL: 1. Abdomen and pelvis CT on 10/07/18 reads as constellation of findings most consistent with developing high-grade small bowel obstruction probably secondary to adhesion. Colonic diverticulosis with no evidence of acute diverticulitis. Multiple round hypodense lesions throughout the liver with the largest one in the left hepatic lobe measuring 2.3 cm, which may represent cyst versus hemangiomas. 2. Chest/thorax CTA on 10/07/18 reads as no pulmonary embolus is noted. No evidence of aortic dissection is noted. Bibasilar atelectasis is noted. No pleural fluid is identified. 3. EKG on 10/08/18 shows atrial fibrillation with a rate of 105, QTc 425. No ischemic changes. CONSULTATIONS WHILE IN THE HOSPITAL: Dr. Spangler from Surgery. HISTORY OF PRESENT ILLNESS AND HOSPITAL COURSE: Mr. Chong is a 68-year-old male with past medical history of provoked PE, who presented to the emergency room on 10/07/18 with complaints of abdominal pain. Please see the history and physical by Dr. Spangler for a complete summary of the events leading up to this hospitalization. In short, the evening prior to admission, the patient started having some abdominal pain. He went to sleep, although the pain worsened and he was unable to sleep. He therefore presented to the emergency room. He does have a history of 3 umbilical hernia repairs. In the emergency room, the patient had imaging as noted above, which was indicative of a small bowel obstruction. He did have mild leukocytosis with a white blood count of 12.6, which was reactive and not secondary to infection. Lab work was essentially otherwise unremarkable. Because of the small bowel obstruction, the patient was admitted by the surgical service. The patient had an NG tube inserted for decompression. The patient was noted to be desaturating on room air with oxygen saturations in the mid 80s. At that point, he denied any shortness of breath or respiratory complaints. Because of this hypoxia, the hospitalist service was consulted. The patient was first seen by the hospitalist service on 10/07/18 and at that point a CTA was done to rule out any PE as the patient does have a history of PE, though the previous one was provoked. He did not have any evidence of PE, so the cause of hypoxia was unclear. The night of 10/07/18, the patient was noted to be tachycardic with an irregular heart rate. An EKG was done, which showed atrial fibrillation. The patient does not have any history of atrial fibrillation. Because of this new-onset atrial fibrillation, the patient was transferred to the hospitalist service and Surgery continued to follow in consultation. The patient has mild tachycardia, though was mostly rate controlled. I did start the patient on metoprolol tartrate and after receiving that the patient did convert back into normal sinus rhythm. The patient was monitored on telemetry and was not noted to have any further atrial fibrillation while here in the hospital. He has been maintained on the metoprolol. The patient did not feel any palpitations, shortness of breath, or chest pain while he was in atrial fibrillation, so it is unclear if this was actually the first event or if the patient has had undiagnosed paroxysmal atrial fibrillation. On 10/09/18, the patient was noted to have some flatus. Because of this, Surgery discontinued the NG tube. I will note that the patient's hypoxia resolved with discontinuation of the NG tube. The patient does report that he is a nose breather and so I think it is very likely that he may have some degree of deviated septum and was hypoxic due to occlusion of his most patent naris. He has since been saturating in the mid to high 90s on room air. The patient did have a bowel movement later in the day and was tolerating clear liquids. I did speak with Surgery and advanced the patient to a soft diet for dinner on . The patient tolerated that well and reported another formed bowel movement after dinner. As of this morning, the patient reports feeling well. He had a soft diet again for breakfast and tolerated that well with only minimal abdominal tenderness. He denies any nausea, vomiting, or diarrhea. He reports mild bloating, though significantly improved from the day of admission. The patient was seen by Dr. Spangler this morning, who felt as though he was stable for discharge from a surgical standpoint. On exam, the patient has no focal neurological deficits. Heart has a regular rate and rhythm without murmurs, rubs, or gallops. Lung sounds are clear to auscultation without rhonchi, wheezes, or rales. Abdomen is large and round, though soft, mildly tender to palpation in the umbilical area. The patient has been up ambulating around the unit frequently without any difficulty. I will note that the patient has a CHADS-VASc score of 1 due to his age and because of this, it was determined that the patient did not require anticoagulation at this point. He does already take a daily aspirin, which at this point, I believe will be sufficient. Mr. Chong is stable for discharge today. Vitals are as follows: Temp 97.5, heart rate 61, respiratory rate 20, oxygen saturation 97% on room air, blood pressure 131/71. DISCHARGE MEDICATIONS: New medication: Metoprolol tartrate 12.5 mg p.o. b.i.d. Continued medication: Aspirin 81 mg p.o. daily. DISCHARGE PLAN: Mr. Chong will be discharged home. He has been instructed on diet by Dr. Spangler, though he should continue with full liquids and soft solids and advance slowly back to a regular diet. Activity will be as tolerated. Medications are noted above. Again, I am keeping the patient on metoprolol at this point for his paroxysmal atrial fibrillation. His blood pressure and heart rate have been tolerating this medication well. As noted above, the patient does not require anticoagulation at this point due to his CHADS-VASc score of 1. I will continue him on his aspirin. I have spoken at length with the patient and his regarding this new diagnosis of atrial fibrillation and have advised him that he would benefit from following up with a asp developer as he will likely require at least a 30-day Holter monitor to determine if he has any further episodes of atrial fibrillation. He will need to follow up with his primary care provider in 4 to 7 days. The patient has been instructed to return to the emergency room or nearest hospital for any worsening of symptoms, shortness of breath, lightheadedness, dizziness, chest discomfort, high fever, chills, night sweats, loss of consciousness, or any other worrisome signs or symptoms. DISCHARGE CONDITION: Stable. DISCHARGE DISPOSITION: Home. This is a summarized report of a complex medical history and hospital stay. For further details, please see the entire medical record. TIME SPENT: Approximately 50 minutes was spent on this discharge. NATALIIA PATE NP [id number]/[facility] #: [id number] [place]
== END 2018-10-10 14:20 | disposition home or self-care (01) | DRG 390 ==
LOC: ED 01:04 → SDS 06:42 → SSU 06:42 → MEDTELE 10-08 10:52
PROVIDERS: ADMIT Surgery; ATTEND Internal Medicine
PROC: 0D9670Z Drainage of Stomach with Drainage Device, Via Natural or Artificial Opening (ICD-10-PCS; principal; 2018-10-07)
DX: K56.609 Unspecified intestinal obstruction, unspecified as to partial versus complete obstruction (principal); R09.02 Hypoxemia; K57.30 Diverticulosis of large intestine without perforation or abscess without bleeding; J34.2 Deviated nasal septum; D72.829 Elevated white blood cell count, unspecified; I48.0 Paroxysmal atrial fibrillation; Z82.49 Family history of ischemic heart disease and other diseases of the circulatory system; Z83.3 Family history of diabetes mellitus; Z87.891 Personal history of nicotine dependence; Z86.711 Personal history of pulmonary embolism; Z86.718 Personal history of other venous thrombosis and embolism
CPT/HCPCS: 36415; 71275; 74177; 80048; 80053; 81003; 81015; 82150; 83605; 83690; 85025; 85379; 85610; 85730; 86140; 86850; 86900; 86901; 87086; 93005; 99284; A9270-GY; J1644; J1885; J2270; J2405; J2543; Q9967

== ENCOUNTER 2018-10-11 17:25 | Inpatient (IN) | payer MEDICARE, OTHER ==
[2018-10-11] MEDS ORDERED: NS 0.9% 1000 ML** 1,000 ML IV ONE (19:20)
--- NOTE | 2018-10-11 19:23 | ED ---
Abdominal Pain/Male - HPI Summary HPI Summary: The patient is a 68 y/o M [place] [facility] accompanied by with a chief complaint of increased abdominal pressure and constipation today after being discharged [place] [facility] [place] for SBO. He reports that he was admitted four days ago for SBO, and he was discharged yesterday. Yesterday, he had one normal large BM and one small BM, and today he only had a small BM. Over the course of the day, he seemed to have a feeling of abdominal pressure, and his abdomen has increased in size. The pain has been a constant 5/10 in severity with intermittent episodes of worsening. He also reports that he has gained 14 lbs since being admitted. He attempted to relieve the pain using a hot bath and suppository at 1600, but there was no relief. He states that he has been eructating but doesn't remember when he last had flatulence. Hx of three umbilical hernias with last one repaired with mesh; scar tissue was viewed on last abd/pel CT. - History of Current Complaint Chief Complaint: Gulshan Stated Complaint: "ABD DISTENTION PER PT" Time Seen by Provider: 10/11/18 19:11 Hx Obtained From: Patient Onset/Duration: Gradual Onset, Lasting Hours, Still Present Timing: Lasting Hours Severity Initially: Moderate Severity Currently: Moderate Pain Intensity: 5 Pain Scale Used: 0-10 Numeric Location: Diffuse Radiates: No Character: Other: - pressure Aggravating Factor(s): Nothing Alleviating Factor(s): Nothing - hot bath and suppository did not relieve pressure Associated Signs And Symptoms: Positive: Constipation, Other - POSITIVE: eructation; NEGATIVE: flatulence. Negative: Nausea, Vomiting - Allergies/Home Medications Allergies/Adverse Reactions: Allergies Allergy/AdvReac Type Severity Reaction Status Date / Time No Known Allergies Allergy Verified 10/11/18 17:31 Home Medications: Home Medications Aspirin EC TAB* [Ecotrin EC Low Dose 81 MG*] 81 mg PO DAILY 10/11/18 [History Confirmed 10/11/18] PMH/Surg Hx/FS Hx/Imm Hx Endocrine/Hematology History: Denies: Hx Diabetes Cardiovascular History: Reports: Hx Deep Vein Thrombosis Denies: Hx Coronary Artery Disease, Hx Embolism, Hx Hypertension Respiratory History: Reports: Hx Pulmonary Embolism GI History: Reports: Other GI Disorders - Umbilical and Inguinal Hernia History: Denies: Hx Renal Disease Sensory History: Denies: Hx Cataracts, Hx Contacts or Glasses, Hx Hearing Aid Opthamlomology History: Denies: Hx Cataracts, Hx Contacts or Glasses - Surgical History Surgery Procedure, Year, and Place: HERNIA REPAIR WITH MESH, SBO removal September 2018 Infectious Disease History: No Infectious Disease History: Denies: Traveled Outside the [place] in Last 30 Days - Family History Known Family History: Positive: Cardiac Disease, Diabetes - Social History Lives: With Family Alcohol Use: Daily Hx Substance Use: No Substance Use Type: Reports: None Hx Tobacco Use: No Smoking Status (MU): Never Smoked Tobacco Do You Chew or Dip Tobacco: No Have You Chewed or Dipped Tobacco in the LAST YEAR: No Have You Smoked in the Last Year: No Review of Systems Negative: Fever Positive: Abdominal Pain - diffuse pressure, Other - POSITIVE: abdominal distension, constipation, eructation; NEGATIVE: flatulence. Negative: Vomiting , Nausea All Other Systems Reviewed And Are Negative: Yes Physical Exam - Summary Physical Exam Summary: VITAL SIGNS: Reviewed. GENERAL: Patient is a well-developed and nourished male who is lying comfortable in the stretcher. Patient is not in any acute respiratory distress. HEAD AND FACE: Normocephalic and atraumatic. EYES: PERRLA, EOMI x 2, No injected conjunctiva. EARS: Hearing grossly intact. Ear canals and tympanic membranes are WNL. MOUTH: Oropharynx within normal limits. NECK: Supple, trachea is midline, no adenopathy, no JVD. CHEST: Symmetric, no tenderness at palpation LUNGS: Clear to auscultation bilaterally. No wheezing or crackles. CVS: RRR, S1 and S2 present, no murmurs or gallops appreciated. ABDOMEN: Soft, non-tender. Abdomen is distended. Decreased bowel sounds, Tympanic bowel sounds in upper abdomen, Solid sounds in the lower abdomen. No rebound no guarding, and no masses palpated. No abdominal bruit or pulsations. EXTREMITIES: FROM in all major joints, no edema, no cyanosis or clubbing. NEURO: Alert and oriented x 3. No acute neurological deficits. Speech is normal. SKIN: Dry and warm. Triage Information Reviewed: Yes Vital Signs On Initial Exam: Initial Vitals Temp Pulse Resp BP Pulse Ox 99.3 F 83 18 147/86 93 10/11/18 17:28 10/11/18 17:28 10/11/18 17:28 10/11/18 17:28 10/11/18 17:28 Vital Signs Reviewed: Yes Diagnostics - Vital Signs Vital Signs Temp Pulse Resp BP Pulse Ox 10/11/18 17:28 99.3 F 83 18 147/86 93 - Laboratory Result Diagrams: 10/11/18 19:19 10/11/18 19:19 Lab Statement: Any lab studies that have been ordered have been reviewed, and results considered in the medical decision making process. - Radiology Abd XR Radiology Interpretation Completed By: Radiologist Summary of Radiographic Findings: Findings consistent with small bowel obstruction. ED physician has reviewed this report. - EKG 2116 Cardiac Rate: NL - 78 BPM EKG Rhythm: Sinus Rhythm EKG Comparison: No Significant Change - Similar to EKG taken on 10/08/2018 Summary of EKG Findings: No ST elevations Re-Evaluation - Re-Evaluation First Eval Re-Evaluation Time: 21:40 Change: Unchanged Comment: I discussed the results with the patient and the need for admission based on results. Abdominal Pain Male Course/Dx - Course Assessment/Plan: Patient is a 68-year-old male who presents to the emergency department with chief complaint abdominal distention, a lot of burping, no passing gas through the rectum. The patient reports that he was admitted to the hospital on October 07 for a small bowel obstruction. The patient is managed by Dr. Spangler from surgery with an NG tube and IV fluids. The patient did not have any surgery. The patient was discharged home yesterday and he was feeling okay. Yesterday he did not have any problems. This morning he had a very small bowel movement in the morning and since then the patient is having abdominal distention, nausea without vomiting, and feeling the same symptoms as when he was having an obstruction. Patient has past medical history significant for small bowel obstruction, etc. fibrillation, hypoxia, Ventral hernia repair. Abdominopelvic CT done on 10/07/18 impression: Constellation of findings most consistent with developing high-grade small bowel obstruction probably secondary to adhesions. Colonic diverticulosis without evidence of Acute diverticulitis. And multiple rounds hypotensive lesion throughout the liver with the largest on the left hepatic lobe measuring 2.3 cm which may represent cyst versus hematomas. X-ray of the abdomen since that the patient has some small bowel obstruction. I discussed my physical exam and findings with Dr. Hinojosa who will review the x-ray and we will give further instructions. Dr. Hinojosa from surgery called back again and he agrees that the patient has an small bowel obstruction. Therefore he recommended an NG tube and admission to his services. Patient is hemodynamically stable and alert and oriented x 3. - Diagnoses Differential Diagnosis/HQI/PQRI: Bowel Obstruction Provider Diagnoses: Small bowel obstruction - Provider Notifications Discussed Care Of Patient With: Edgard Hinojosa - surgery Time Discussed With Above Provider: 20:18 Instructed by Provider To: Other - I spoke with Dr. Hinojosa concerning the patient's current condition and XR reading. He says he will call back after reading the XR. When he called back, he states that there is a SBO. I spoke with Dr. Maguire, who accepts the patient for admission at 20:20. Discharge - Sign-Out/Discharge Documenting (check all that apply): Patient Departure - Patient is accepted for admission by Dr. Maguire. Patient Received Moderate/Deep Sedation with Procedure: No - Discharge Plan Condition: Stable Disposition: ADMITTED TO [facility] - Billing Disposition and Condition Condition: STABLE Disposition: Admitted to [facility] - Attestation Statements Document Initiated by Nicole: Yes Documenting Scribe: Andreea Mc Provider For Whom Nicole is Documenting (Include Credential): Dr. Jamar Connelly MD Scribe Attestation: IAndreea, scribed for Dr. Jamar Connelly MD on 10/11/18 at 2206. Scribe Documentation Reviewed: Yes Provider Attestation: The documentation as recorded by the Andreea pierre accurately reflects the service I personally performed and the decisions made by me, Dr. Jamar Connelly MD Status of Scribsarwat Document: Viewed
[2018-10-11 19:55] LABS: ABS Basophils 0.1 10^3/ul (0-0.2); ABS Eosinophils 0.1 10^3/ul (0-0.6); ABS Lymphocytes 0.8 10^3/ul (1.0-4.8); ABS Monocytes 0.7 10^3/ul (0-0.8); ABS Neutrophils 6.2 10^3/ul (1.5-7.7); Eosinophil % 1.6 %; Hematocrit 43 % (42-52); Hemoglobin 14.5 g/dL (14.0-18.0); Lymphocyte % 10.1 %; Mean Corpuscular HGB Conc 34 g/dL (31-36); Mean Corpuscular Hemoglobin 30 pg (27-31); Mean Corpuscular Volume 87 fL (80-94); Mean Platelet Volume 7.3 fL (7.4-10.4); Nucleated Red Blood Cells % 0.1; Platelet Count 258 10^3/uL (150-450); Red Blood Count 4.87 10^6 /uL (4.18-5.48); Red Cell Distribution Width 13 % (10.5-15); White Blood Count 7.9 10^3/uL (3.5-10.8)
[2018-10-11 20:12] LABS: ALT 31 U/L (7-52); AST 31 U/L (13-39); Albumin 3.7 g/dL (3.2-5.2); Albumin/Globulin Ratio 1.3 (1-3); Alkaline Phosphatase 54 U/L (34-104); Anion Gap 11 mmol/L (2-11); BUN/Creatinine Ratio 12.2 (8-20); Blood Urea Nitrogen 10 mg/dL (6-24); C Reactive Protein 89.78 mg/L (<8.01); CO2 Carbon Dioxide 26 mmol/L (22-32); Calcium 9.1 mg/dL (8.6-10.3); Chloride 102 mmol/L (101-111); EGFR African American 112.7 (>60); EGFR Non-African American 93.2 (>60); Globulin 2.8 g/dL (2-4); Glucose 112 mg/dL (70-100); Magnesium 1.8 mg/dL (1.9-2.7); Potassium 3.9 mmol/L (3.5-5.0); Sodium 139 mmol/L (135-145); Total Protein 6.5 g/dL (6.4-8.9)
[2018-10-11] MEDS ORDERED: Lidocaine 2% VISCOUS* 15 ML UDC PO ONE (20:30)
[2018-10-11] MEDS: Lactated Ringers 1000 ML Bag* 1,000 ML IV SCH (20:53)
[2018-10-11] MEDS: HYDROmorphone INJ1* 1 MG/ML SYRINGE IV SLOW PU PRN (20:53)
[2018-10-11 22:19] LABS: Urine Appearance Clear; Urine Bilirubin Negative (Negative); Urine Blood Negative (Negative); Urine Color Yellow; Urine Glucose Negative (Negative); Urine Ketones 2+ (Negative); Urine Nitrite Negative (Negative); Urine Protein Negative (Negative); Urine Specific Gravity 1.012 (1.010-1.030); Urine Urobilinogen Negative (Negative)
[2018-10-12] MEDS ORDERED: Ondansetron INJ* 2 MG/ML VIAL ONE ×2 (00:07→15:45)
[2018-10-12] MEDS: HYDROmorphone INJ1* 1 MG/ML SYRINGE IV SLOW PU PRN (00:10)
[2018-10-12] MEDS ORDERED: Ondansetron INJ* 2 MG/ML VIAL IV PRN ×2 (00:24→15:25)
[2018-10-12] MEDS: Lactated Ringers 1000 ML Bag* 1,000 ML IV SCH ×2 (04:28→13:01)
[2018-10-12 07:17] LABS: ABS Eosinophils 0.1 10^3/ul (0-0.6); ABS Lymphocytes 0.7 10^3/ul (1.0-4.8); ABS Monocytes 0.7 10^3/ul (0-0.8); Eosinophil % 1.8 %; Hematocrit 41 % (42-52); Hemoglobin 13.4 g/dL (14.0-18.0); Lymphocyte % 10.2 %; Mean Corpuscular HGB Conc 33 g/dL (31-36); Mean Corpuscular Hemoglobin 29 pg (27-31); Mean Corpuscular Volume 88 fL (80-94); Mean Platelet Volume 7.3 fL (7.4-10.4); Platelet Count 260 10^3/uL (150-450); Red Cell Distribution Width 14 % (10.5-15); White Blood Count 6.6 10^3/uL (3.5-10.8)
[2018-10-12 07:22] LABS: BUN/Creatinine Ratio 13.3 (8-20); Calcium 8.5 mg/dL (8.6-10.3); EGFR African American 124.9 (>60); EGFR Non-African American 103.3 (>60); Potassium 3.8 mmol/L (3.5-5.0)
[2018-10-12] MEDS ORDERED: Heparin VIAL(*) 5000 UNITS/ML VIAL (FIVE THOUSAND) SUBCUT ONE (13:44)
--- NOTE | 2018-10-12 14:06 | HP ---
H&P (Free Text) History and Physical: UPDATE TO H&P/INTERVAL NOTE CC: SBO HPI: See prior H&P and Discharge summary. After his discharge home Mr. Chong states he has not passed flatus. He had one small BM in the morning yesterday. He noted 5/10 abdominal pain, distension and 14 pound weight gain. He called through the answering service and was directed to the ER where AXR showed obstructive picture. He is admitted for persisting SBO. NGT was placed in ER with some improvement in distension and pain. PM/S/FH: SEE H&P NKDA PE: Vital Signs Temp 98.3 F 10/12/18 12:00 Pulse 77 10/12/18 12:00 Resp 16 10/12/18 12:00 BP 122/72 10/12/18 12:00 Pulse Ox 94 10/12/18 12:00 GEN: NAD; lying in hospital bed CHEST: CTA B; reg s1s2 ABD: large, distended, BS+; +tympany; soft and NT. Scars from prior laparoscopy and RIHR. No palpable hernias. EXT: Warm, well perfused. Intake & Output 10/11/18 10/12/18 10/12/18 18:59 06:59 18:59 Intake Total 1876 987 Output Total 1400 375 Balance 476 612 Weight 250 lb 250 lb Intake: IV Fluids 1801 987 LR 801 987 Oral 0 NG Tube Irrigate Amount 75 Output: NG Tube Drainage Amount 900 Urine 500 375 Laboratory Results - last 24 hr 10/11/18 10/11/18 10/11/18 19:19 19:19 19:19 WBC 7.9 RBC 4.87 Hgb 14.5 Hct 43 MCV 87 MCH 30 MCHC 34 RDW 13 Plt Count 258 MPV 7.3 L Neut % (Auto) 78.4 Lymph % (Auto) 10.1 [place] % (Auto) 9.1 Eos % (Auto) 1.6 Baso % (Auto) 0.8 Absolute Neuts (auto) 6.2 Absolute Lymphs (auto) 0.8 L Absolute Monos (auto) 0.7 Absolute Eos (auto) 0.1 Absolute Basos (auto) 0.1 Absolute Nucleated RBC 0.0 Nucleated RBC % 0.1 Sodium 139 Potassium 3.9 Chloride 102 Carbon Dioxide 26 Anion Gap 11 BUN 10 Creatinine 0.82 Est GFR ( Amer) 112.7 Est GFR (Non-Af Amer) 93.2 BUN/Creatinine Ratio 12.2 Glucose 112 H Lactic Acid 1.0 Calcium 9.1 Magnesium 1.8 L Total Bilirubin 0.60 AST 31 ALT 31 Alkaline Phosphatase 54 C-Reactive Protein 89.78 H Total Protein 6.5 Albumin 3.7 Globulin 2.8 Albumin/Globulin Ratio 1.3 Lipase < 10 L Urine Color Urine Appearance Urine pH Ur Specific [place] Urine Protein Urine Ketones Urine Blood Urine Nitrate Urine Bilirubin Urine Urobilinogen Ur Leukocyte Esterase Urine Glucose 10/11/18 10/12/18 10/12/18 22:05 06:45 06:45 WBC 6.6 RBC 4.60 Hgb 13.4 L Hct 41 L MCV 88 MCH 29 MCHC 33 RDW 14 Plt Count 260 MPV 7.3 L Neut % (Auto) 76.6 Lymph % (Auto) 10.2 [place] % (Auto) 11.1 Eos % (Auto) 1.8 Baso % (Auto) 0.3 Absolute Neuts (auto) 5.0 Absolute Lymphs (auto) 0.7 L Absolute Monos (auto) 0.7 Absolute Eos (auto) 0.1 Absolute Basos (auto) 0.0 Absolute Nucleated RBC 0.0 Nucleated RBC % 0.0 Sodium 140 Potassium 3.8 Chloride 104 Carbon Dioxide 28 Anion Gap 8 BUN 10 Creatinine 0.75 Est GFR ( Amer) 124.9 Est GFR (Non-Af Amer) 103.3 BUN/Creatinine Ratio 13.3 Glucose 116 H Lactic Acid Calcium 8.5 L Magnesium Total Bilirubin AST ALT Alkaline Phosphatase C-Reactive Protein Total Protein Albumin Globulin Albumin/Globulin Ratio Lipase Urine Color Yellow Urine Appearance Clear Urine pH 6.0 Ur Specific [place] 1.012 Urine Protein Negative Urine Ketones 2+ A Urine Blood Negative Urine Nitrate Negative Urine Bilirubin Negative Urine Urobilinogen Negative Ur Leukocyte Esterase Negative Urine Glucose Negative A/P: 68 yo M with h/o RIHR and lap repair recurrent umbilical hernia with mesh , now with SBO. He has h/o distant PE, recent diagnosis of PAF, not on anticoagulation. He requires surgical treatment for his SBO having failed medical management. Likely this is due to adhesions from prior surgery. Plan is for laparoscopy, possible laparotomy, GUSTAVO, possible bowel resection. I discussed the procedure with the patient and his . We discussed that findings at surgery will dictate the procedure. I/R/B/A/option of no treatment discussed. Risks explained including, not limited to, bleeding, infection, pain , scarring, blood clots, pneumonia, visceral injury, and risk of GETA. All questions were answered. He stated understanding and agrees to proceed.
[2018-10-12] MEDS ORDERED: Buffered Lidocaine 1% SYRIN* 1 ML/SYRINGE INTRADERM ONE (14:26)
[2018-10-12] MEDS ORDERED: Midazolam* 1 MG/ML 2 ML VIAL (2 MG) ONE (14:30)
[2018-10-12] MEDS ORDERED: fentaNYL* 50 MCG/ML 2 ML VIAL (100 MCG VIAL) ONE ×5 (14:30→19:26)
[2018-10-12] MEDS ORDERED: ceFOXitin 2 GM IVPREMIX* 2 GM/50 ML BAG ONE ×2 (14:34→18:13)
[2018-10-12] MEDS ORDERED: Lactated Ringers 1000 ML Bag* 1,000 ML IV SCH (15:00)
[2018-10-12] MEDS ORDERED: Bupivacaine 0.25% W/EPI* 10 ML SDV ONE (15:13)
[2018-10-12] MEDS ORDERED: Famotidine IV* 10 MG/ML 2 ML (20 mg) ONE (15:23)
[2018-10-12] MEDS ORDERED: DiMENhydriNATE IV* 50 MG/ML VIAL IV PUSH PRN (15:25)
[2018-10-12] MEDS ORDERED: Naloxone* 0.4 MG/ML 1 ML VIAL IV PRN (15:25)
[2018-10-12] MEDS ORDERED: PROCHLORPERAZINE INJ 5 MG/ML 2 ML VIAL IV PRN (15:25)
[2018-10-12] MEDS ORDERED: diPHENhydraMINE IV* 50 MG/ML 1 ml VIAL (BENADRYL) IV PRN (15:25)
[2018-10-12] MEDS ORDERED: Succinylcholine* 20 MG/ML 10 ML VIAL ONE (15:45)
[2018-10-12] MEDS ORDERED: Propofol* 10 MG/ML 20 ML BTL ONE ×3 (15:45→18:10)
[2018-10-12] MEDS ORDERED: Dexamethasone IV* 4 MG/ML 1 ML (4 MG) ONE (15:45)
[2018-10-12] MEDS ORDERED: Cisatracurium* 2 MG/ML MDV 5 ML ONE ×2 (15:46→17:10)
[2018-10-12] MEDS ORDERED: Lidocaine 2% PF * 5 ML VIAL ONE (15:58)
[2018-10-12] MEDS ORDERED: Naloxone* 0.4 MG/ML 1 ML VIAL IV PUSH PRN (18:57)
[2018-10-12] MEDS ORDERED: HYDROmorphone PCA* 20 MG/20 ML PCA.SYRING PCA SCH (19:00)
--- NOTE | 2018-10-12 19:05 | BRIEFOPN ---
Brief Operative Note - Surgery Procedures: PREOP DX: SBO POSTOP DX: SAME AND SB PERFORATION PROC: LAPAROSCOPIC GUSTAVO; EXPL LAPAROTOMY; SB RESECTION WITH PRIMARY ANASTAMOSIS SURG: MECENAS ASSIST: DRU CHENGS: NIC; ROSALBA EBL: 300ML U/O:350ML IVF: 2L LR SPEC: (1) PORTION OF SB WITH PERF (2) ADDITIONAL SB DRAIN: NONE COMPL: NONE COND: STABLE; EXTUBATED; TO RR FINDINGS: DICTATED
[2018-10-12] MEDS ORDERED: HYDROmorphone PCA* 20 MG/20 ML PCA.SYRING ONE (19:26)
[2018-10-12] MEDS: fentaNYL* 50 MCG/ML 2 ML VIAL (100 MCG VIAL) IV PRN ×2 (19:27→19:51)
[2018-10-12] MEDS ORDERED: Zosyn per Pharmacy* NOTE FOLLOW UP SCH (20:00)
[2018-10-12] MEDS ORDERED: Piperacillin/Tazobac ADVAN(*) 3.375 GM in NS 0.9% 100 ML* 100 ML IVPB ONE (21:00)
--- NOTE | 2018-10-12 21:27 | CONSULT ---
Consult Consult: HOSPITALIST CONSULT Requesting Provider: Dr. Asencio Reason for Consultation: Hypoxia and concern for aspiration HPI: Mr Chong is a 68 yo M who has a h/o provoked DVT/PE after a prolonged trip who was hospitalized from 10/07/18-10/10/18 where he was treated for a small bowel obstruction conservatively. During that hospitalization the patient was found to be hypoxic without clear cause. He was ruled out for PE with CTA chest. Once the NG tube was removed he was no longer hypoxic per the discharge summary. The patient represented to the ER on 10/12/18 after contacting the surgical group answering service with c/o no longer passing flatus and abdominal distention. He was admitted to the surgical service with plans for exploratory laparoscopy, possible laparotomy, GUSTAVO and possible small bowel resection. He went to the OR on the evening of 10/12/18 and during the case the patient vomited and there was concern that the patient may have aspirated some of the gastric contents as he was noted to be hypoxic. The hospitalist service was asked to see the patient in consultation for evaluation of hypoxia and possible aspiration. Currently the patient states he is feeling ok. He denies any chest pain or SOB. He states his breathing is comfortable. He has mild abdominal pain that is 2/ 10. PMHx: Paroxysmal Afib, h/o provoked DVT/PE PSHx: exploratory laparoscopy, partial small bowel resection All: NKDA Meds: Current medication list reviewed FamHx: Positive for cardiac disease and diabetes. SocHx: Pt is a former smoker quitting approximately 20 years ago. 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 ROS: Reviewed, pertinent positives and negatives as per HPI. PE: BP 126/75 HR 83 RR 18 O2 sat 93% on 8L gen: Middle aged male sitting up in bed, NAD HEENT: pupils are round, EOMI Card: nl S1S2 RRR, no LE edema Lung: CTA anteriorly and at the lateral bases Abd: absent bowel sounds, soft, mildly distended Musculoskeletal: moves all 4 symmetrically Skin: warm, diaphoretic Neuro: deferred Psych: A&Ox3 A/P: Mr Chong is a 68 yo M who has a PMHx of provoked PE, PAF identified last admission who presented to the ER with c/o ongoing abdominal distention and no flatus and was found to have persistent SBO requiring exploratory laparoscopy and partial small bowel resection for small bowel perforation. The hospitalist service was asked to see the patient in consultation due to concern for aspiration in the setting of hypoxia. 1. Hypoxia: Possibly secondary to aspiration pneumonitis however the patient was hypoxic last admission and no clear cause was found but the hypoxia resolved with removal of the NG tube. His O2 requirements now are more than they were last admission. Clinically the patient is stable. I am not going to start Abx for an aspiration pneumonia at this time. If he develops fever or tachypnea/distress will start zosyn. Additionally he has been receiving IV narcotics and this could be contributing to his hypoxia. Will monitor for now. Try to wean down O2. Encourage pulmonary toilet as the patient recovers from surgery. 2. Paroxysmal afib: monitor on tele. Would recommend resuming metoprolol and ASA as soon as felt to be ok from surgery standpoint. 3. DVT-P: Resume SQ heparin when Ok with surgery. 4. Full code
--- NOTE | 2018-10-12 23:05 | OP ---
CC: Adis Scott MD OPERATIVE REPORT: DATE OF OPERATION: 10/12/18 DATE OF : 48 SURGEON: Edgard Hinojosa MD LAST TURNER: Dr. Fleming. ANESTHESIOLOGIST: Dr. Asencio. ANESTHESIA: General endotracheal. PRE-OP DIAGNOSIS: Small bowel obstruction. POST-OP DIAGNOSES: Small bowel obstruction and small bowel perforation. OPERATIVE PROCEDURE: Laparoscopic lysis of adhesions, exploratory laparotomy, small bowel resection with primary anastomosis. ESTIMATED BLOOD LOSS: 300 mL IV FLUIDS: 2 L of crystalloid. SPECIMENS: 1. Portion of small bowel perforation. 2. Additional small bowel. DRAINS: None. COMPLICATIONS: None. COUNTS: Instrument, needles, and sponge counts were correct. DESCRIPTION OF PROCEDURE: The patient was brought to the operating room and placed on the table supine. Sequential compression devices were placed on both lower extremities. General anesthesia was administered. Zamora catheter was placed. He was positioned and padded appropriately, then he was prepped and draped in the usual sterile fashion. Time-out was performed. He received appropriate intravenous antibiotics. Local anesthetic was infiltrated to the skin and soft tissue prior to each laparoscopic incision. The entry to the abdomen was using a cut down in the left upper quadrant and after accessing the peritoneal cavity, a 5-mm trocar was placed and carbon dioxide was insufflated to a pressure of 15 mmHg. There was noted to be dilated small bowel. There were noted to be adhesions of omentum and small bowel to the anterior abdominal wall in the side of the previously placed intraperitoneal mesh. Additional 5 mm trocars were placed more medially in the left upper quadrant, more inferiorly in the left upper quadrant, and an additional 5-mm trocar placed in the lower left quadrant. Utilizing 5-mm 30-degree laparoscope adhesiolysis was performed using combination of sharp dissection as well as LigaSure dissection and blunt dissection to free the anterior abdominal wall of the omentum and small bowel in its entirety. Portions of the small bowel that were densely adherent to the mesh were taken down by dissecting the mesh free from the abdominal wall. After completing the adhesiolysis, the transition zone was inspected and this did not appear to have resolved the obstruction. There was a loop of small bowel that was adherent to an adjacent loop of mesentery and as this was bluntly dissected free, a small area of pus was identified. Further dissection revealed chronic inflammatory changes into the mesentry and then yet further dissection revealed that there was a perforation of the small bowel. This was in the distal jejunum or proximal ileum. At this point, it was decided that a midline laparotomy would be performed. Midline laparotomy was performed and then small bowel was eviscerated. The area of perforation was initially attempted to be controlled by oversewing it, however, the sutures just tore through the tissue. At this point, it was decided to simply resect this area and this was performed with a JERRY 80 stapler with blue cartridge. The intervening mesentery was divided with the LigaSure and the specimen was submitted to Pathology. The proximal bowel was very dilated and there was an extended segment, perhaps 10 to 12 cm, that appeared to be ischemic. This was about 20 to 25 cm proximal to the stapled off end. More proximal to that ischemic looking segment, the bowel did appear massively dilated, but not ischemic. The small bowel was milked proximally back to the stomach to allow decompression and then lavage of the abdomen was performed until clear. The bowel had been returned to the abdominal cavity to allow it to regain perfusion, however, upon reinspection of the segment of small bowel remained ischemic. It was decided to perform further resection of the small bowel, and therefore, another firing of the JERRY 80 was used to divide the bowel more proximally and an area of healthy jejunum and then the mesentery was again divided with the LigaSure. Continuity of the bowel was restored with an end-to-end functional [id number] enteroenterostomy using the JERRY 80 stapler and the common enterotomy was closed by firing a TA 60 blue stapler across it and then the staple line was oversewn with 3-0 silk on the end and along the anterior portion. Also, reinforcing suture of 3-0 silk was placed at the crotch of the anastomosis. The mesenteric defect was closed with interrupted 3-0 silks as well. The bowel was returned to the abdominal cavity and the area was lavaged. Complete exploration was performed and there did appear to be a bezoar within the distal small bowel that was milked completely into the colon. The anastomosis did appear patent. The palpation of the large intestine revealed no additional abnormalities. The liver felt normal to palpation on the left and right lobes as did the gallbladder. Stomach was quite distended and subsequently did decompress with nasal tube decompression after repositioning of the nasogastric tube. The proximal small bowel all appeared normal and hemostasis was assured. The omentum was placed beneath the midline wound and then the wound was closed with running #1 Prolene suture. The subcutaneous tissues were irrigated and then skin edges were approximated with delbert at the midline wound as well as all the laparoscopic sites. A Prevena dressing was applied over the midline wound, 2 x 2 dressings applied over the remaining laparoscopic trocar sites. The patient subsequently was extubated uneventfully. He was transferred to the recovery room in the stable condition. [id number]/CPS #: [id number] [facility] HOSPITALLeslee
[2018-10-13] MEDS: ZOSYN 3.375 GM Q8H per EXTENDED INFUSION IVPB SCH ×6 (02:45→18:24)
[2018-10-13] MEDS: Lactated Ringers 1000 ML Bag* 1,000 ML IV SCH ×3 (03:30→21:58)
[2018-10-13 05:37] LABS: ABS Lymphocytes 0.5 10^3/ul (1.0-4.8); ABS Monocytes 0.8 10^3/ul (0-0.8); ABS Neutrophils 6.9 10^3/ul (1.5-7.7); Eosinophil % 0.1 %; Hematocrit 44 % (42-52); Hemoglobin 14.5 g/dL (14.0-18.0); Lymphocyte % 6.1 %; Mean Corpuscular HGB Conc 33 g/dL (31-36); Mean Corpuscular Hemoglobin 29 pg (27-31); Mean Corpuscular Volume 89 fL (80-94); Mean Platelet Volume 7.2 fL (7.4-10.4); Platelet Count 251 10^3/uL (150-450); Red Blood Count 4.94 10^6 /uL (4.18-5.48); Red Cell Distribution Width 14 % (10.5-15); White Blood Count 8.2 10^3/uL (3.5-10.8)
[2018-10-13 05:48] LABS: BUN/Creatinine Ratio 14.5 (8-20); EGFR African American 111.2 (>60); EGFR Non-African American 91.9 (>60); Potassium 4.2 mmol/L (3.5-5.0)
--- NOTE | 2018-10-13 09:09 | PN ---
Progress Note - Progress Note Date of Service: 10/13/18 SOAP: Subjective: Pain controlled. No flatus. Findings at surgery discussed. Patient reports eating "smoked wolfe trout" without removing the bones and suspects he did swallow some. Objective: Vital Signs Temp 97.8 F 10/13/18 04:00 Pulse 88 10/13/18 08:00 Resp 20 10/13/18 08:00 BP 140/78 10/13/18 08:00 Pulse Ox 91 10/13/18 08:00 Gen: NAD Abd: softly distended; Provena intact; mild tenderness. Dressings c/d/i. Intake & Output 10/12/18 10/13/18 10/13/18 18:59 06:59 18:59 Intake Total 3637 1284 Output Total 1175 1480 250 Balance 2462 -196 -250 Intake: IV Fluids 3637 1209 ABX - ZOSYN 85 LR 3587 995 NS (0.9%) 79 NS 50ML, Cefoxitin 2G 50 50 Oral 0 0 NG Tube Irrigate Amount 75 Output: NG Tube Drainage Amount 450 450 Urine 375 100 Zamora 350 930 250 Laboratory Results - last 24 hr 10/13/18 10/13/18 05:16 05:16 WBC 8.2 RBC 4.94 Hgb 14.5 Hct 44 MCV 89 MCH 29 MCHC 33 RDW 14 Plt Count 251 MPV 7.2 L Neut % (Auto) 84.4 Lymph % (Auto) 6.1 [place] % (Auto) 9.2 Eos % (Auto) 0.1 Baso % (Auto) 0.2 Absolute Neuts (auto) 6.9 Absolute Lymphs (auto) 0.5 L Absolute Monos (auto) 0.8 Absolute Eos (auto) 0.0 Absolute Basos (auto) 0.0 Absolute Nucleated RBC 0.0 Nucleated RBC % 0.0 Sodium 138 Potassium 4.2 Chloride 106 Carbon Dioxide 23 Anion Gap 9 BUN 12 Creatinine 0.83 Est GFR ( Amer) 111.2 Est GFR (Non-Af Amer) 91.9 BUN/Creatinine Ratio 14.5 Glucose 139 H Calcium 8.0 L Assessment: POD#0-1 s/p lap GUSTAVO/ExLap/SBR for SBO 2/2 abscess/perforation. Doing well postop. Respiratory status is stable but on 5 L/min NCO2 Plan: Cont NGT/NPO until bowel function returned. Short course of IV antibiotics planned as no extensive peritonitis and the perforation was contained. F/u from Hospitalist appreciated. Can likely return to [facility] today. Pulm toilet/DVT prophylaxis (resume) heparin subcut.
--- NOTE | 2018-10-13 09:18 | PN ---
Subjective Date of Service: 10/13/18 Interval History: Some pain with cough. No sputum. No SOB. No flatus or BM. No new c/o. 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 .change Q24H [facility]; Protocol Last Admin: 10/12/18 19:28 Dose: 0.2 mls/hr Piperacillin Sod/Tazobactam (Sod 3.375 gm/ Sodium Chloride) 100 mls @ 25 mls/ hr IVPB Q8H [facility] Last Admin: 10/13/18 02:45 Dose: 25 mls/hr Naloxone HCl (Narcan*) 0.08 mg IV PUSH .Q2MIN PRN PRN Reason: OVERSEDATION Ondansetron HCl (Zofran Inj*) 4 mg IV Q6H PRN PRN Reason: NAUSEA/VOMITING Pharmacy Consult (Zosyn Per Pharmacy*) 1 note FOLLOW UP .ZOSYN PER PHARMACY [facility] Vital Signs - 8 hr 10/13/18 10/13/18 10/13/18 01:30 02:00 02:30 Temperature Pulse Rate 84 85 83 Respiratory 13 13 12 Rate Blood Pressure 116/84 133/69 119/83 (mmHg) O2 Sat by Pulse 90 90 91 Oximetry 10/13/18 10/13/18 10/13/18 03:00 03:30 04:00 Temperature 97.8 F Pulse Rate 87 86 86 Respiratory 12 12 13 Rate Blood Pressure 108/75 126/76 114/91 (mmHg) O2 Sat by Pulse 91 90 91 Oximetry 10/13/18 10/13/18 10/13/18 04:30 05:00 05:30 Temperature Pulse Rate 84 83 84 Respiratory 13 13 15 Rate Blood Pressure 125/73 100/73 128/73 (mmHg) O2 Sat by Pulse 91 92 92 Oximetry 10/13/18 10/13/18 10/13/18 06:00 06:30 07:00 Temperature Pulse Rate 83 85 85 Respiratory 13 12 16 Rate Blood Pressure 114/74 124/74 138/77 (mmHg) O2 Sat by Pulse 92 91 93 Oximetry 10/13/18 10/13/18 10/13/18 07:12 07:30 08:00 Temperature Pulse Rate 87 88 Respiratory 21 20 Rate Blood Pressure 132/84 140/78 (mmHg) O2 Sat by Pulse 93 90 91 Oximetry Oxygen Devices in Use Now: Nasal Cannula Appearance: Alert, partly up on ICU bed. In good spirits. Looks comfortable. Eyes: No Scleral Icterus Respiratory: Symmetrical Chest Expansion and Respiratory Effort, Clear to Auscultation, Clear to Percussion Cardiovascular: NL Sounds; No Murmurs; No JVD, RRR, No Edema Abdominal: No Hepatosplenomegaly, - - Soft, absent BS. Extremities: No Edema, No Clubbing, Cyanosis, - Skin: No Rash or Ulcers, No Nodules or Sclerosis Neurological: Alert and Oriented x 3, NL Sensation Result Diagrams: 10/13/18 05:16 10/13/18 05:16 Assess/Plan/Problems-Billing Assessment: - Patient Problems (1) Hypoxia Current Visit: No Status: Acute Code(s): R09.02 - HYPOXEMIA SNOMED Code(s) : 234095982 Comment: Continue to wean off O2, likely to resolve as abd wound heals. Stable for transfer to floor. (2) New onset atrial fibrillation Current Visit: No Status: Acute Code(s): I48.91 - UNSPECIFIED ATRIAL FIBRILLATION SNOMED Code(s): 08545856 Comment: Resume metoprolol and ASA when taking po. Monitor on telemetry. TTE ordered. (3) SBO (small bowel obstruction) Current Visit: No Status: Acute Code(s): K56.609 - UNSP INTESTNL OBST, UNSP TO PARTIAL VERSUS COMPLETE OBST SNOMED Code(s): 134014887 Comment: Pip/lamin for small bowel perf per Dr. Hinojosa.
--- NOTE | 2018-10-13 09:34 | PN ---
Subjective Date of Service: 10/13/18 Interval History: Addendum to earlier noted today. Objective Active Medications: Heparin Sodium (Porcine) (Heparin Vial(*)) 5,000 units SUBCUT Q8HR [facility] Hydromorphone HCl (Dilaudid Inj1s*) 0.5 mg IV SLOW PU Q1H PRN PRN Reason: PAIN - SEVERE Last Admin: 10/12/18 00:10 Dose: 0.5 mg Lactated Ringer's (Lactated Ringers 1000 Ml Bag*) 1,000 mls @ 125 mls/hr IV PER RATE [facility] Last Admin: 10/13/18 03:30 Dose: 125 mls/hr Hydromorphone HCl (Dilaudid Manager Hospitality*) 20 mg in 20 mls @ 0 mls/hr FRONT TENDER .change Q24H [facility]; Protocol Last Admin: 10/12/18 19:28 Dose: 0.2 mls/hr Piperacillin Sod/Tazobactam (Sod 3.375 gm/ Sodium Chloride) 100 mls @ 25 mls/ hr IVPB Q8H [facility] Last Admin: 10/13/18 02:45 Dose: 25 mls/hr Naloxone HCl (Narcan*) 0.08 mg IV PUSH .Q2MIN PRN PRN Reason: OVERSEDATION Ondansetron HCl (Zofran Inj*) 4 mg IV Q6H PRN PRN Reason: NAUSEA/VOMITING Pharmacy Consult (Zosyn Per Pharmacy*) 1 note FOLLOW UP .ZOSYN PER PHARMACY [facility] Vital Signs - 8 hr 10/13/18 10/13/18 10/13/18 02:00 02:30 03:00 Temperature Pulse Rate 85 83 87 Respiratory 13 12 12 Rate Blood Pressure 133/69 119/83 108/75 (mmHg) O2 Sat by Pulse 90 91 91 Oximetry 10/13/18 10/13/18 10/13/18 03:30 04:00 04:30 Temperature 97.8 F Pulse Rate 86 86 84 Respiratory 12 13 13 Rate Blood Pressure 126/76 114/91 125/73 (mmHg) O2 Sat by Pulse 90 91 91 Oximetry 10/13/18 10/13/18 10/13/18 05:00 05:30 06:00 Temperature Pulse Rate 83 84 83 Respiratory 13 15 13 Rate Blood Pressure 100/73 128/73 114/74 (mmHg) O2 Sat by Pulse 92 92 92 Oximetry 10/13/18 10/13/18 10/13/18 06:30 07:00 07:12 Temperature Pulse Rate 85 85 Respiratory 12 16 Rate Blood Pressure 124/74 138/77 (mmHg) O2 Sat by Pulse 91 93 93 Oximetry 10/13/18 10/13/18 07:30 08:00 Temperature Pulse Rate 87 88 Respiratory 21 20 Rate Blood Pressure 132/84 140/78 (mmHg) O2 Sat by Pulse 90 91 Oximetry Oxygen Devices in Use Now: Nasal Cannula Result Diagrams: 10/13/18 05:16 10/13/18 05:16 Assess/Plan/Problems-Billing Assessment: - Patient Problems (1) Hypoxia Current Visit: No Status: Acute Code(s): R09.02 - HYPOXEMIA SNOMED Code(s) : 303125265 Comment: Continue to wean off O2, likely to resolve as abd wound heals. Stable for transfer to floor. (2) New onset atrial fibrillation Current Visit: No Status: Acute Code(s): I48.91 - UNSPECIFIED ATRIAL FIBRILLATION SNOMED Code(s): 83012114 Comment: Resume metoprolol and ASA when taking po. Monitor on telemetry. TTE ordered. (3) SBO (small bowel obstruction) Current Visit: No Status: Acute Code(s): K56.609 - UNSP INTESTNL OBST, UNSP TO PARTIAL VERSUS COMPLETE OBST SNOMED Code(s): 716989291 Comment: Pip/lamin for small bowel perf per Dr. Hinojosa. (4) History of DVT of lower extremity Current Visit: Yes Status: Acute Code(s): Z86.718 - PERSONAL HISTORY OF OTHER VENOUS THROMBOSIS AND EMBOLISM SNOMED Code(s): 727460797 Comment: After 19 hrs of plane travel 4 yrsa ago. Chemoprophylaxis for DVT when OK surgically.
[2018-10-13] MEDS: Heparin VIAL(*) 5000 UNITS/ML VIAL (FIVE THOUSAND) SUBCUT SCH ×2 (15:02→21:38)
[2018-10-14] MEDS: ZOSYN 3.375 GM Q8H per EXTENDED INFUSION IVPB SCH ×2 (02:29)
[2018-10-14] MEDS: Heparin VIAL(*) 5000 UNITS/ML VIAL (FIVE THOUSAND) SUBCUT SCH ×3 (05:34→22:22)
[2018-10-14] MEDS: Lactated Ringers 1000 ML Bag* 1,000 ML IV SCH (06:02)
--- NOTE | 2018-10-14 07:22 | PN ---
Progress Note - Progress Note Date of Service: 10/14/18 SOAP: Subjective: Mild crampy pain. No N/V. No flatus. Denies CP/SOB. Objective: Vital Signs Temp 98.2 F 10/14/18 03:43 Pulse 89 10/14/18 03:43 Resp 16 10/14/18 05:37 BP 120/65 10/14/18 03:43 Pulse Ox 89 10/14/18 05:37 Gen: NAD HEENT: NGT in place, brown effluent;flushed. Abd: +distended; dressings c/d/i; +BS; soft and mildly tender Ext: warm Intake & Output 10/13/18 10/14/18 10/14/18 18:59 06:59 18:59 Intake Total 1220 1928 Output Total 405 700 Balance 815 1228 Intake: IV Fluids 1220 1928 ABX - ZOSYN 103 LR 870 1780 NS (0.9%) 350 45 Oral 0 Output: NG Tube Drainage Amount 30 200 Delgado 375 500 Other: # Bowel Movements 0 Assessment: POD#1-2 s/p Exlap/SBRsxn. Plan: Cont NGT/NPO until bowel fct. D/C delgado Change to maintenance IVF. D/C Zosyn. Pulm toilet/DVT prophylaxis with SCDs/SC Hep.
[2018-10-14] MEDS: D5W 1/2 NS KCl 20 Meq 1000 ML* 1,000 ML IV SCH ×2 (07:54→21:30)
[2018-10-14] MEDS: Metoprolol Tartrate TAB* 25 MG PO SCH ×2 (10:29→22:23)
[2018-10-14] MEDS: Aspirin EC TAB* 81 MG TAB.EC PO SCH (10:29)
--- NOTE | 2018-10-14 12:34 | ECHO ---
*[facility]* [place] [address] Fax #: [phone] Transthoracic Echocardiogram Patient: Castillo, Height: 73 in / Dionisio Garrison 185.4 cm : 1950 Weight: 249.5 lb / Study Date: 10/14/2018 113.4 kg Age: 68 BP: 120 / 65 Gender: M BMI/BSA: 33 kg/m^2 / HR: 80 bpm 2.37 m^2 *Owner Oral Surgeon: * Lois Mansfield [facility] *Referring Physician: * Oscar Sesay *Reading Physician: * Fidelia Vigil MD Indications: Abnormal EKG. History: Pulmonary embolic disease. Risk factors: Former tobacco use. Conclusions Summary: 1. Left ventricle: The cavity size is normal. Wall thickness is mildly to moderately increased. Systolic function is hyperdynamic. The estimated ejection fraction is 60-65%. Doppler parameters are consistent with abnormal left ventricular relaxation (grade 1 diastolic dysfunction). 2. Right ventricle: The cavity size is mildly dilated. Systolic function is low normal. 3. Mitral valve: There is mild regurgitation. 4. Tricuspid valve: There is mild regurgitation. 5. Pulmonary arteries: Systolic pressure is mildly increased. The peak pressure during systole by Doppler is 38.0 mm Hg. 6. No prior echocardiogram to compare. Study data: Transthoracic echocardiogram. Procedure: Transthoracic echocardiography was performed. Image quality was good. Complete 2D, spectral Doppler, and color flow Doppler. Location: Bedside. Patient status: Inpatient. Patient room number: 332. Rhythm: Normal sinus rhythm. Findings Left ventricle: The cavity size is normal. Wall thickness is mildly to moderately increased. Systolic function is hyperdynamic. The estimated ejection fraction is 60-65%. Wall motion is normal; there are no regional wall motion abnormalities. Doppler parameters are consistent with abnormal left ventricular relaxation (grade 1 diastolic dysfunction). Right ventricle: The cavity size is mildly dilated. Systolic function is low normal. Systolic pressure is mildly increased. Left atrium: The atrium is mildly to moderately dilated. Right atrium: The atrium is normal in size. Mitral valve: The annulus is mildly calcified. The leaflets are mildly thickened. There is no evidence of stenosis. There is mild regurgitation. Aortic valve: The valve is trileaflet. The leaflets are mildly thickened. There is no evidence of stenosis. There is no significant regurgitation. Tricuspid valve: The leaflets are normal thickness. There is no evidence of stenosis. There is mild regurgitation. Pulmonic valve: Not well visualized. There is no significant regurgitation. Aorta: Aortic arch: The aortic arch is appears normal. The aortic root is not dilated. Pericardium: There is no significant pericardial effusion. Pulmonary arteries: Not well visualized. Systolic pressure is mildly increased. Systemic veins: Inferior vena cava: The vessel is normal in size. The respirophasic diameter changes are blunted (< 50%). Measurements Left ventricle Value Ref Aortic valve continued Value Ref HARPER, LAX 4.8 cm 4.2 - 5.8 Mean grad, S 5.0 mm Hg ----- ESD, LAX 2.8 cm 2.5 - 4.0 Peak grad, S 12.0 mm Hg ----- FS, LAX 41 % 25 - 43 PW, ED, LAX (H) 1.3 cm 0.6 - 1.0 Mitral valve Value Ref EF 72 % 52 - 72 Peak E 0.62 m/sec ----- E', lat raquel, TDI (L) 9.6 cm/sec >=10.0 Peak A 0.97 m/sec - ---- E/e', lat raquel, 6 Decel time 190 ms ---- - TDI Peak E/A ratio 0.6 ----- E', med raquel, TDI 9.1 cm/sec >=7.0 E/e', med raquel, 7 Pulmonic valve Value Ref TDI Peak v, S 0.84 m/sec ----- E', avg, TDI 9.4 cm/sec Peak grad, S 3.0 mm Hg ---- - E/e', avg, TDI 7 <=14 Tricuspid valve Value Ref LVOT Value Ref TR peak v (H) 3.1 m/sec <=2.8 Peak kenia, S 1.64 m/sec Peak RV-RA grad, S 38 mm Hg ----- Peak grad, S 11 mm Hg Mean grad, S 5 mm Hg Aortic root Value Ref Root diam 3.5 cm <4.4 Ventricular septum Value Ref IVS, ED (H) 1.2 cm 0.6 - 1.0 Ascending aorta Value Ref AAo AP diam, S 3.1 cm ----- Right ventricle Value Ref HARPER, LAX 3.4 cm Aortic arch Value Ref HARPER minor ax, A4C (H) 4.3 cm 1.9 - 3.5 Arch diam 3.0 cm ----- mid Pressure, S 41 mm Hg Decending aorta Value Ref Sloan peak kenia 0.92 m/sec ----- Left atrium Value Ref AP dim, ES (H) 4.40 cm 3.00 - Pulmonary artery Value Ref 4.00 Pressure, S 38.0 mm Hg ----- ML dim, A4C 4.4 cm SI dim, A4C 5.8 cm Inferior vena cava Value Ref Vol/bsa, ES, A/L (H) 46 ml/m^2 16 - 34 Diam 1.9 cm ----- Right atrium Value Ref Pulmonary veins Value Ref SI dim, ES 4.7 cm 3.4 - 5.3 Peak v, S 0.58 m/sec ----- ML dim, ES, A4C 4.4 cm 2.6 - 4.4 Peak v, D 0.37 m/sec ----- Estimated RAP 3 mm Hg Peak S/D ratio 1.6 ----- A rev duration 127 ms ----- Aortic valve Value Ref Raquel diam, ED 2.5 cm Peak v, S 1.71 m/sec VTI, S 28.6 cm Legend: (L) and (H) trev values outside specified reference range. Prepared and electronically signed by Fidelia Vigil MD 10/14/2018 12:34
--- NOTE | 2018-10-14 14:06 | PN ---
Subjective Date of Service: 10/14/18 Interval History: No new c/o. No SOB. No flatus or BM. 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 .change Q24H [facility]; Protocol Last Admin: 10/12/18 19:28 Dose: 0.2 mls/hr Potassium Chloride/Dextrose (D5w 1/2 Ns Kcl 20 Meq 1000 Ml*) 1,000 mls @ 75 mls /hr IV PER RATE [facility] Last Admin: 10/14/18 07:54 Dose: 75 mls/hr Metoprolol Tartrate (Lopressor Tab*) 12.5 mg PO BID [facility] Last Admin: 10/14/18 10:29 Dose: Not Given Naloxone HCl (Narcan*) 0.08 mg IV PUSH .Q2MIN PRN PRN Reason: OVERSEDATION Ondansetron HCl (Zofran Inj*) 4 mg IV Q6H PRN PRN Reason: NAUSEA/VOMITING Pharmacy Consult (Zosyn Per Pharmacy*) 1 note FOLLOW UP .ZOSYN PER PHARMACY [facility] Vital Signs - 8 hr 10/14/18 10/14/18 10/14/18 07:00 07:33 08:00 Temperature 98.7 F Pulse Rate 84 Respiratory 18 18 18 Rate Blood Pressure 114/61 (mmHg) O2 Sat by Pulse 90 89 Oximetry 10/14/18 10/14/18 10/14/18 09:00 10:17 10:23 Temperature 98.7 F 98.7 F Pulse Rate 84 84 Respiratory 18 16 Rate Blood Pressure 116/61 116/61 (mmHg) O2 Sat by Pulse 91 90 97 Oximetry 10/14/18 10/14/18 11:00 11:29 Temperature 99.1 F Pulse Rate 85 Respiratory 18 18 Rate Blood Pressure 126/61 (mmHg) O2 Sat by Pulse 97 90 Oximetry Oxygen Devices in Use Now: High Flow Nasal Cannula Appearance: Alert, in a chair with legs elevated. In good spirits. Looks comfortable. Eyes: No Scleral Icterus Respiratory: Symmetrical Chest Expansion and Respiratory Effort, Clear to Auscultation, Clear to Percussion Cardiovascular: NL Sounds; No Murmurs; No JVD, RRR, No Edema, - Abdominal: No Hepatosplenomegaly, - - Soft, absent BS, not tender. Extremities: No Edema, No Clubbing, Cyanosis, - Skin: No Rash or Ulcers, No Nodules or Sclerosis, - Neurological: Alert and Oriented x 3, NL Sensation Result Diagrams: 10/13/18 05:16 10/13/18 05:16 Assess/Plan/Problems-Billing Assessment: - Patient Problems (1) Hypoxia Current Visit: No Status: Acute Code(s): R09.02 - HYPOXEMIA SNOMED Code(s) : 545781274 Comment: Continue to wean off O2, likely to resolve as abd wound heals. O2 sat 93-94% on 4 L NC by me 10/14. (2) New onset atrial fibrillation Current Visit: No Status: Acute Code(s): I48.91 - UNSPECIFIED ATRIAL FIBRILLATION SNOMED Code(s): 19195321 Comment: Resume metoprolol and ASA when taking po. Monitor on telemetry. TTE 10/14 showed nl LVEF, mild LVH, grade 1 diastolic dysfunction. (3) SBO (small bowel obstruction) Current Visit: No Status: Acute Code(s): K56.609 - UNSP INTESTNL OBST, UNSP TO PARTIAL VERSUS COMPLETE OBST SNOMED Code(s): 111373180 Comment: Management per Dr. Hinojosa. Off antibiotics as of 10/14. (4) History of DVT of lower extremity Current Visit: Yes Status: Acute Code(s): Z86.718 - PERSONAL HISTORY OF OTHER VENOUS THROMBOSIS AND EMBOLISM SNOMED Code(s): 351926234 Comment: After 19 hrs of plane travel 4 yrsa ago. Chemoprophylaxis for DVT when OK surgically.
[2018-10-15] MEDS: Heparin VIAL(*) 5000 UNITS/ML VIAL (FIVE THOUSAND) SUBCUT SCH ×3 (05:33→22:00)
[2018-10-15 05:56] LABS: BUN/Creatinine Ratio 19.7 (8-20); EGFR African American 144.8 (>60); EGFR Non-African American 119.7 (>60); Potassium 4.4 mmol/L (3.5-5.0)
[2018-10-15] MEDS ORDERED: HYDROmorphone INJ* 0.5 MG/0.5 ML SYRINGE IV SLOW PU PRN (08:01)
[2018-10-15] MEDS: Aspirin EC TAB* 81 MG TAB.EC PO SCH (08:29)
[2018-10-15] MEDS: Metoprolol Tartrate TAB* 25 MG PO SCH ×2 (08:45→22:00)
[2018-10-15] MEDS: D5W 1/2 NS KCl 20 Meq 1000 ML* 1,000 ML IV SCH (10:58)
--- NOTE | 2018-10-15 11:13 | PN ---
Progress Note - Progress Note Date of Service: 10/15/18 SOAP: Subjective: Feels better but no GI function Pain adequately controlled Ambulating Objective: Temp Pulse Resp BP Pulse Ox 98.1 F 80 18 97/54 93 10/15/18 07:27 10/15/18 07:27 10/15/18 08:00 10/15/18 07:27 10/15/18 07:27 Intake & Output 10/13/18 10/14/18 10/15/18 10/16/18 06:59 06:59 06:59 06:59 Intake Total 4921 3148 1578 990 Output Total 2655 1105 2525 Balance 2266 2043 -947 990 Weight 245 lb Intake: IV Fluids 4846 3148 1578 990 ABX - ZOSYN 85 103 205 D5 1/2 NS 20KCL 997 990 LR 4582 2650 231 NS (0.9%) 79 395 145 NS 50ML, Cefoxitin 2G 100 Oral 0 0 0 0 NG Tube Irrigate Amount 75 Output: NG Tube Drainage Amount 851 180 3684 Urine 475 825 Zamora 1280 875 150 Other: # Bowel Movements 0 0 PEX: Comfortable Lungs are clear -decreased breath sounds at bases Abd is soft and distended. Wound vac in place. Bowel sounds are present and not high pitched or tinkling CXR reviewed 10/14 Assessment: POD# 3 s/p exlap with SB resection for SBO Ileus Plan: Continue NGT/IVF/NPO Ambulate IS
--- NOTE | 2018-10-15 16:48 | PN ---
Subjective Date of Service: 10/15/18 Interval History: No new c/o. Occ small amount of sputum which he swallows. Some flatus this afternoon. No chest pain, SOB. Objective Active Medications: Aspirin (Aspirin Ec Tab*) 81 mg PO DAILY [facility] Last Admin: 10/15/18 08:29 Dose: 81 mg Heparin Sodium (Porcine) (Heparin Vial(*)) 5,000 units SUBCUT Q8HR [facility] Last Admin: 10/15/18 15:37 Dose: 5,000 units Hydromorphone HCl (Dilaudid Inj*) 0.5 mg IV SLOW PU Q2H PRN PRN Reason: PAIN Potassium Chloride/Dextrose (D5w 1/2 Ns Kcl 20 Meq 1000 Ml*) 1,000 mls @ 75 mls /hr IV PER RATE [facility] Last Admin: 10/15/18 10:58 Dose: 75 mls/hr Metoprolol Tartrate (Lopressor Tab*) 12.5 mg PO BID [facility] Last Admin: 10/15/18 08:45 Dose: 12.5 mg Naloxone HCl (Narcan*) 0.08 mg IV PUSH .Q2MIN PRN PRN Reason: OVERSEDATION Ondansetron HCl (Zofran Inj*) 4 mg IV Q6H PRN PRN Reason: NAUSEA/VOMITING Vital Signs - 8 hr 10/15/18 15:32 Temperature 99.2 F Pulse Rate 80 Respiratory 16 Rate Blood Pressure 138/53 (mmHg) O2 Sat by Pulse 96 Oximetry Oxygen Devices in Use Now: Nasal Cannula Appearance: Alert, in a chair with legs elevated. In good spirits. Looks comfortable. Eyes: No Scleral Icterus Respiratory: Symmetrical Chest Expansion and Respiratory Effort, Clear to Auscultation Cardiovascular: NL Sounds; No Murmurs; No JVD, RRR, No Edema, - Abdominal: NL Sounds; No Tenderness; No Distention, No Hepatosplenomegaly Extremities: No Edema, No Clubbing, Cyanosis, - Skin: No Rash or Ulcers, No Nodules or Sclerosis, - Neurological: Alert and Oriented x 3, NL Sensation Result Diagrams: 10/15/18 16:52 10/15/18 16:52 Assess/Plan/Problems-Billing Assessment: - Patient Problems (1) Hypoxia Current Visit: No Status: Acute Code(s): R09.02 - HYPOXEMIA SNOMED Code(s) : 278479528 Comment: Continue to wean off O2, likely to resolve as abd wound heals. RepeaCRP, CBC 10/15 PM. Consolidation on chest X-ray could be residual from prior aspiration. I note he received 5 doses of pip/lamin. CRP increased from level of 89.8 on 10/11 to 220.1 on 10/15, re-start pip/lamin. (2) New onset atrial fibrillation Current Visit: No Status: Acute Code(s): I48.91 - UNSPECIFIED ATRIAL FIBRILLATION SNOMED Code(s): 08182396 Comment: Resume metoprolol and ASA when taking po. Monitor on telemetry. TTE 10/14 showed nl LVEF, mild LVH, grade 1 diastolic dysfunction. (3) SBO (small bowel obstruction) Current Visit: No Status: Acute Code(s): K56.609 - UNSP INTESTNL OBST, UNSP TO PARTIAL VERSUS COMPLETE OBST SNOMED Code(s): 974413636 Comment: Management per Dr. Hinojosa. Off antibiotics as of 10/14. (4) History of DVT of lower extremity Current Visit: Yes Status: Acute Code(s): Z86.718 - PERSONAL HISTORY OF OTHER VENOUS THROMBOSIS AND EMBOLISM SNOMED Code(s): 042567554 Comment: After 19 hrs of plane travel 4 yrs ago. Chemoprophylaxis for DVT when OK surgically.
[2018-10-15 17:11] LABS: ABS Basophils 0.1 10^3/ul (0-0.2); ABS Eosinophils 0.1 10^3/ul (0-0.6); ABS Lymphocytes 0.9 10^3/ul (1.0-4.8); ABS Monocytes 0.8 10^3/ul (0-0.8); Eosinophil % 1.3 %; Hematocrit 37 % (42-52); Hemoglobin 12.1 g/dL (14.0-18.0); Lymphocyte % 10.3 %; Mean Corpuscular HGB Conc 33 g/dL (31-36); Mean Corpuscular Hemoglobin 30 pg (27-31); Mean Corpuscular Volume 89 fL (80-94); Mean Platelet Volume 7.5 fL (7.4-10.4); Platelet Count 295 10^3/uL (150-450); Red Blood Count 4.11 10^6 /uL (4.18-5.48); Red Cell Distribution Width 14 % (10.5-15); White Blood Count 8.9 10^3/uL (3.5-10.8)
[2018-10-15 17:17] LABS: C Reactive Protein 220.09 mg/L (<8.01); Calcium 8.3 mg/dL (8.6-10.3); EGFR African American 155.6 (>60); EGFR Non-African American 128.6 (>60); Potassium 3.8 mmol/L (3.5-5.0)
[2018-10-15] MEDS: Piperacillin/Tazobac ADVAN(*) 3.375 GM in NS 0.9% 100 ML* 100 ML IVPB SCH (21:00)
[2018-10-16] MEDS: D5W 1/2 NS KCl 20 Meq 1000 ML* 1,000 ML IV SCH ×3 (02:33→18:07)
[2018-10-16] MEDS: HYDROmorphone INJ1* 1 MG/ML SYRINGE IV SLOW PU PRN ×2 (02:42→22:26)
[2018-10-16] MEDS: Piperacillin/Tazobac ADVAN(*) 3.375 GM in NS 0.9% 100 ML* 100 ML IVPB SCH ×3 (04:18→21:15)
[2018-10-16] MEDS: Heparin VIAL(*) 5000 UNITS/ML VIAL (FIVE THOUSAND) SUBCUT SCH ×3 (05:23→21:17)
[2018-10-16] MEDS: Aspirin EC TAB* 81 MG TAB.EC PO SCH (08:49)
[2018-10-16] MEDS: Metoprolol Tartrate TAB* 25 MG PO SCH ×2 (08:49→21:16)
--- NOTE | 2018-10-16 16:02 | PN ---
Subjective Date of Service: 10/16/18 Interval History: Pt feels well. NG out, able to drink and has had 6 BM's today Objective Active Medications: Aspirin (Aspirin Ec Tab*) 81 mg PO DAILY [facility] Last Admin: 10/16/18 08:49 Dose: 81 mg Heparin Sodium (Porcine) (Heparin Vial(*)) 5,000 units SUBCUT Q8HR [facility] Last Admin: 10/16/18 14:42 Dose: 5,000 units Hydromorphone HCl (Dilaudid Inj1s*) 0.5 mg IV SLOW PU Q2H PRN PRN Reason: PAIN Last Admin: 10/16/18 02:42 Dose: 0.5 mg Piperacillin Sod/Tazobactam (Sod 3.375 gm/ Sodium Chloride) 100 mls @ 25 mls/ hr IVPB Q8H [facility] Last Admin: 10/16/18 12:54 Dose: 25 mls/hr Potassium Chloride/Dextrose (D5w 1/2 Ns Kcl 20 Meq 1000 Ml*) 1,000 mls @ 0 mls/ hr IV PER RATE [facility] Last Admin: 10/16/18 08:49 Dose: 30 mls/hr Metoprolol Tartrate (Lopressor Tab*) 12.5 mg PO BID [facility] Last Admin: 10/16/18 08:49 Dose: 12.5 mg Naloxone HCl (Narcan*) 0.08 mg IV PUSH .Q2MIN PRN PRN Reason: OVERSEDATION Ondansetron HCl (Zofran Inj*) 4 mg IV Q6H PRN PRN Reason: NAUSEA/VOMITING Vital Signs - 8 hr 10/16/18 10/16/18 10/16/18 09:00 11:03 15:41 Temperature 98.2 F 99.3 F Pulse Rate 66 72 Respiratory 18 17 24 Rate Blood Pressure 125/60 124/58 (mmHg) O2 Sat by Pulse 92 92 Oximetry 10/16/18 15:43 Temperature 99.3 F Pulse Rate 72 Respiratory 24 Rate Blood Pressure 124/58 (mmHg) O2 Sat by Pulse 92 Oximetry Oxygen Devices in Use Now: Nasal Cannula Appearance: 68 yo M in nAD, aAOx3 Eyes: No Scleral Icterus, PERRLA Ears/Nose/Mouth/Throat: NL Teeth, Lips, Gums, Mucous Membranes Moist Neck: NL Appearance and Movements; NL JVP, Trachea Midline Respiratory: Symmetrical Chest Expansion and Respiratory Effort, Clear to Auscultation Cardiovascular: NL Sounds; No Murmurs; No JVD, RRR Abdominal: NL Sounds; No Tenderness; No Distention, - - midline incision covered with Vac dressing Lymphatic: No Cervical Adenopathy Extremities: No Edema Skin: No Rash or Ulcers, No Nodules or Sclerosis Neurological: Alert and Oriented x 3, NL Muscle Strength and Tone Result Diagrams: 10/15/18 16:52 10/15/18 16:52 Assess/Plan/Problems-Billing Assessment: 68 yo M s/p laparotomy for SBO - Patient Problems (1) SBO (small bowel obstruction) Comment: Management per Dr. Hinojosa. Off antibiotics as of 10/14. sp laparotomy, lysis of adhesions, perf repati and reanastomosis on 10/12/18 (2) Hypoxia Comment: Continue to wean off O2, likely to resolve as abd wound heals. Repea CRP, CBC 10/15 PM. Consolidation on chest X-ray could be residual from prior aspiration. I note he received 5 doses of pip/lamin. CRP increased and on 10/15, re-started pip/lamin. CTA 10/07 neg for PE (3) New onset atrial fibrillation Comment: Cont metoprolol and ASA Monitor on telemetry. Transient a. fib on 10/08-10/09 TTE 10/14 showed nl LVEF, mild LVH, grade 1 diastolic dysfunction. (4) History of DVT of lower extremity Comment: After 19 hrs of plane travel 4 yrs ago-DVT and PE. (5) DVT prophylaxis Comment: - Heparin SQ Status and Disposition: medicine consult, will follow
[2018-10-17] MEDS: Piperacillin/Tazobac ADVAN(*) 3.375 GM in NS 0.9% 100 ML* 100 ML IVPB SCH (04:13)
[2018-10-17] MEDS: Heparin VIAL(*) 5000 UNITS/ML VIAL (FIVE THOUSAND) SUBCUT SCH ×3 (05:52→21:36)
[2018-10-17] MEDS: Metoprolol Tartrate TAB* 25 MG PO SCH ×2 (08:58→21:35)
[2018-10-17] MEDS: Aspirin EC TAB* 81 MG TAB.EC PO SCH (08:58)
[2018-10-17] MEDS ORDERED: Furosemide IV* 10 MG/ML VIAL (40 MG) IV ONE (09:54)
--- NOTE | 2018-10-17 10:00 | PN ---
Subjective Date of Service: 10/17/18 Interval History: Pt feels well. Has regular BM. Still on clears. Denies pain, SOB Objective Active Medications: Aspirin (Aspirin Ec Tab*) 81 mg PO DAILY [facility] Last Admin: 10/17/18 08:58 Dose: 81 mg Furosemide (Lasix Iv*) 40 mg IV ONCE ONE Stop: 10/17/18 09:55 Heparin Sodium (Porcine) (Heparin Vial(*)) 5,000 units SUBCUT Q8HR [facility] Last Admin: 10/17/18 05:52 Dose: 5,000 units Hydromorphone HCl (Dilaudid Inj1s*) 0.5 mg IV SLOW PU Q2H PRN PRN Reason: PAIN Last Admin: 10/16/18 22:26 Dose: 0.5 mg Metoprolol Tartrate (Lopressor Tab*) 12.5 mg PO BID [facility] Last Admin: 10/17/18 08:58 Dose: 12.5 mg Naloxone HCl (Narcan*) 0.08 mg IV PUSH .Q2MIN PRN PRN Reason: OVERSEDATION Ondansetron HCl (Zofran Inj*) 4 mg IV Q6H PRN PRN Reason: NAUSEA/VOMITING Vital Signs - 8 hr 10/17/18 10/17/18 10/17/18 03:17 07:35 09:18 Temperature 99.0 F 97.8 F Pulse Rate 72 67 Respiratory 16 17 16 Rate Blood Pressure 120/67 118/62 (mmHg) O2 Sat by Pulse 93 92 Oximetry Oxygen Devices in Use Now: Nasal Cannula Appearance: 68 yo M in nAD, aAOx3 Eyes: No Scleral Icterus, PERRLA Ears/Nose/Mouth/Throat: NL Teeth, Lips, Gums, Mucous Membranes Moist Neck: NL Appearance and Movements; NL JVP, Trachea Midline Respiratory: Symmetrical Chest Expansion and Respiratory Effort, - - fine bibasiliar crackles Cardiovascular: NL Sounds; No Murmurs; No JVD, RRR Abdominal: No Hepatosplenomegaly, - - midline incision covered with post op dressings Lymphatic: No Cervical Adenopathy Extremities: No Edema Skin: No Rash or Ulcers, No Nodules or Sclerosis Neurological: Alert and Oriented x 3, NL Muscle Strength and Tone Result Diagrams: 10/15/18 16:52 10/15/18 16:52 Assess/Plan/Problems-Billing Assessment: 68 yo M s/p laparotomy for SBO - Patient Problems (1) SBO (small bowel obstruction) Comment: Management per Dr. Hinojosa. Off antibiotics as of 10/14, then placed back on Zosyn 10/15-will d/c today sp laparotomy, lysis of adhesions, perf repair and reanastomosis on 10/12/18 (2) Hypoxia Comment: Continue to wean off O2, likely to resolve as abd wound heals. Consolidation on chest X-ray could be residual from prior aspiration. He received 5 doses of pip/lamin. CRP increased and on 10/15, re-started pip/lamin- will d/c today CTA 10/07 neg for PE has gained several lbs of fluid weight-will tx with Lasix 40 mg IV x 1 today (3) New onset atrial fibrillation Comment: Cont metoprolol and ASA Monitor on telemetry. Transient a. fib on 10/08-10/09 TTE 10/14 showed nl LVEF, mild LVH, grade 1 diastolic dysfunction. (4) History of DVT of lower extremity Comment: After 19 hrs of plane travel 4 yrs ago-DVT and PE. (5) DVT prophylaxis Comment: - Heparin SQ Status and Disposition: medicine consult, will follow
--- NOTE | 2018-10-18 01:35 | PN ---
Progress Note - Progress Note Date of Service: 10/18/18 Note: Called to see patient re hypoxia. He has no new complaints. He is POD 5 from lysis of adhesions for SBO. He had CTA negative on 10/07. Has been hypoxic intermittently since then. He denies SOB, denies h/o COPD. Pulse 74, O2 Sat 88% on 10 L. Turned down to 3.5 liters and Sat 86-87%. Lungs: clear to auscultation bilat Heart; RRR, no murmur Extrem: no edema CXR: infiltrate RLL less conspicuous than prior ABG: O2 sat 92% A/P: Differential includes PE, but oximeter also is reading erroneously low. Will tolerate O2 sats around 85%, which are likely really 90% if we repeated ABG. If chest pain, tachycardia, or worsening hypoxia or dyspnea occur, will repeat CTA. Will have LE doppler in AM.
[2018-10-18] MEDS: Heparin VIAL(*) 5000 UNITS/ML VIAL (FIVE THOUSAND) SUBCUT SCH (06:13)
[2018-10-18 06:35] LABS: BUN/Creatinine Ratio 16.1 (8-20); Calcium 8.3 mg/dL (8.6-10.3); EGFR African American 155.6 (>60); EGFR Non-African American 128.6 (>60); Potassium 3.4 mmol/L (3.5-5.0)
[2018-10-18] MEDS: Metoprolol Tartrate TAB* 25 MG PO SCH ×2 (07:55→21:32)
[2018-10-18] MEDS: Aspirin EC TAB* 81 MG TAB.EC PO SCH (07:56)
[2018-10-18] MEDS ORDERED: Potassium Chlor TAB* 20 MEQ TAB.ER PO ONE (08:52)
[2018-10-18] MEDS ORDERED: Iohexol 350* (CONTRAST) 500 ML MDV IV ONE (09:23)
--- NOTE | 2018-10-18 09:59 | PN ---
Subjective Date of Service: 10/18/18 Interval History: Pt got hypoxemic last night . dopplers and CTA ordered. Pt himself is upset about not going home today, since he "feels fine". Objective Active Medications: Aspirin (Aspirin Ec Tab*) 81 mg PO DAILY [facility] Last Admin: 10/18/18 07:56 Dose: 81 mg Heparin Sodium (Porcine) (Heparin Vial(*)) 5,000 units SUBCUT Q8HR [facility] Last Admin: 10/18/18 06:13 Dose: 5,000 units Hydromorphone HCl (Dilaudid Inj1s*) 0.5 mg IV SLOW PU Q2H PRN PRN Reason: PAIN Last Admin: 10/16/18 22:26 Dose: 0.5 mg Metoprolol Tartrate (Lopressor Tab*) 12.5 mg PO BID [facility] Last Admin: 10/18/18 07:55 Dose: 12.5 mg Naloxone HCl (Narcan*) 0.08 mg IV PUSH .Q2MIN PRN PRN Reason: OVERSEDATION Ondansetron HCl (Zofran Inj*) 4 mg IV Q6H PRN PRN Reason: NAUSEA/VOMITING Vital Signs - 8 hr 10/18/18 10/18/18 10/18/18 03:07 07:18 07:50 Temperature 98.6 F 98.4 F Pulse Rate 76 Respiratory 20 20 16 Rate Blood Pressure 120/64 120/61 (mmHg) O2 Sat by Pulse 89 88 Oximetry Oxygen Devices in Use Now: High Flow Nasal Cannula Appearance: 68 yo M in nAD, AAOx3 Eyes: No Scleral Icterus, PERRLA Ears/Nose/Mouth/Throat: NL Teeth, Lips, Gums, Mucous Membranes Moist Neck: NL Appearance and Movements; NL JVP, Trachea Midline Respiratory: Symmetrical Chest Expansion and Respiratory Effort, Clear to Auscultation, - - decreased breath sounds at bases Cardiovascular: NL Sounds; No Murmurs; No JVD, RRR Abdominal: NL Sounds; No Tenderness; No Distention, No Hepatosplenomegaly, - - midline abd incision-no dehiscence Lymphatic: No Cervical Adenopathy Extremities: No Edema, No Clubbing, Cyanosis, - Skin: No Nodules or Sclerosis Neurological: Alert and Oriented x 3, NL Muscle Strength and Tone Result Diagrams: 10/15/18 16:52 10/18/18 06:13 Assess/Plan/Problems-Billing Assessment: 68 yo M s/p laparotomy for SBO - Patient Problems (1) SBO (small bowel obstruction) Comment: Management per Dr. Hinojosa. Off antibiotics as of 10/14, then placed back on Zosyn 10/15-10/17 sp laparotomy, lysis of adhesions, perf repair and reanastomosis on 10/12/18 (2) Hypoxia Comment: Continue to wean off O2, likely to resolve as abd wound heals. Consolidation on chest X-ray could be residual from prior aspiration. He received 5 doses of pip/lamin. CRP increased and on 10/15, re-started pip/lamin--, off antibiotics today CTA 10/07 neg for PE, due to worsening hypoxemia despite diuresing nearly 2 L last night-will get another CTA to eval further tx with Lasix 40 mg IV x 1 10/17 (3) New onset atrial fibrillation Comment: Cont metoprolol and ASA Monitor on telemetry. Transient a. fib on 10/08-10/09 TTE 10/14 showed nl LVEF, mild LVH, grade 1 diastolic dysfunction. (4) History of DVT of lower extremity Comment: After 19 hrs of plane travel 4 yrs ago-DVT and PE. 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
[2018-10-18] MEDS: Rivaroxaban TAB(*) 15 MG PO SCH ×2 (12:54→21:31)
[2018-10-18] MEDS ORDERED: Enoxaparin(*) 100 MG/ML SYR SUBCUT SCH (13:00)
[2018-10-18] MEDS ORDERED: Furosemide IV* 10 MG/ML VIAL (40 MG) IV ONE (14:06)
[2018-10-18] MEDS: Temazepam CAP* 15 MG PO PRN (21:32)
[2018-10-18] MEDS: Hydrocortisone 1% CREAM* 30 GM TUBE TOPICAL SCH (21:33)
[2018-10-19] MEDS: Metoprolol Tartrate TAB* 25 MG PO SCH ×2 (09:58→19:31)
[2018-10-19] MEDS: Rivaroxaban TAB(*) 15 MG PO SCH ×2 (09:58→19:30)
[2018-10-19] MEDS: Aspirin EC TAB* 81 MG TAB.EC PO SCH (09:58)
[2018-10-19] MEDS: Hydrocortisone 1% CREAM* 30 GM TUBE TOPICAL SCH ×2 (09:58→19:31)
[2018-10-19 11:12] LABS: ABS Basophils 0.1 10^3/ul (0-0.2); ABS Eosinophils 0.2 10^3/ul (0-0.6); ABS Lymphocytes 1.3 10^3/ul (1.0-4.8); ABS Monocytes 0.7 10^3/ul (0-0.8); ABS Neutrophils 7.3 10^3/ul (1.5-7.7); Eosinophil % 2.2 %; Hematocrit 39 % (42-52); Hemoglobin 12.9 g/dL (14.0-18.0); Lymphocyte % 13.7 %; Mean Corpuscular HGB Conc 33 g/dL (31-36); Mean Corpuscular Hemoglobin 29 pg (27-31); Mean Corpuscular Volume 87 fL (80-94); Mean Platelet Volume 7.2 fL (7.4-10.4); Platelet Count 454 10^3/uL (150-450); Red Blood Count 4.49 10^6 /uL (4.18-5.48); Red Cell Distribution Width 14 % (10.5-15); White Blood Count 9.6 10^3/uL (3.5-10.8)
[2018-10-19 11:28] LABS: BUN/Creatinine Ratio 17.4 (8-20); Calcium 8.6 mg/dL (8.6-10.3); EGFR African American 137.6 (>60); EGFR Non-African American 113.7 (>60); Potassium 3.7 mmol/L (3.5-5.0)
[2018-10-19] MEDS ORDERED: Potassium Chlor TAB* 20 MEQ TAB.ER PO ONE (12:36)
[2018-10-19] MEDS ORDERED: Furosemide IV* 10 MG/ML 2 ML VIAL (20 MG) IV ONE (12:36)
--- NOTE | 2018-10-19 12:42 | PN ---
Subjective Date of Service: 10/19/18 Interval History: Pt stated that initially was upset about staying due to hypoxemia, but understands the need for 02 is still high and agrees to staying "a couple of days longer". Denies abd pain and tolerating soft diet. Denies SOB, but on 8 l 02. Diuresed well with IV Lasix yesterday Objective Active Medications: Aspirin (Aspirin Ec Tab*) 81 mg PO DAILY [facility] Last Admin: 10/19/18 09:58 Dose: 81 mg Furosemide (Lasix Iv*) 20 mg IV ONCE ONE Stop: 10/19/18 12:37 Hydrocortisone (Hytone Cream 1%*) 1 applic TOPICAL BID [facility] Last Admin: 10/19/18 09:58 Dose: 1 applic Hydromorphone HCl (Dilaudid Inj1s*) 0.5 mg IV SLOW PU Q2H PRN PRN Reason: PAIN Last Admin: 10/16/18 22:26 Dose: 0.5 mg Metoprolol Tartrate (Lopressor Tab*) 12.5 mg PO BID [facility] Last Admin: 10/19/18 09:58 Dose: 12.5 mg Naloxone HCl (Narcan*) 0.08 mg IV PUSH .Q2MIN PRN PRN Reason: OVERSEDATION Ondansetron HCl (Zofran Inj*) 4 mg IV Q6H PRN PRN Reason: NAUSEA/VOMITING Rivaroxaban (Xarelto(*)) 15 mg PO BID [facility] Last Admin: 10/19/18 09:58 Dose: 15 mg Temazepam (Restoril Cap*) 15 mg PO BEDTIME PRN PRN Reason: INSOMNIA Last Admin: 10/18/18 21:32 Dose: 15 mg Vital Signs - 8 hr 10/19/18 10/19/18 10/19/18 04:39 07:24 08:30 Temperature 98.4 F 98.2 F Pulse Rate 72 70 Respiratory 18 18 16 Rate Blood Pressure 108/53 110/58 (mmHg) O2 Sat by Pulse 84 85 Oximetry 10/19/18 10/19/18 10/19/18 09:55 10:03 11:41 Temperature 98.4 F Pulse Rate 76 Respiratory 20 Rate Blood Pressure 119/65 (mmHg) O2 Sat by Pulse 90 90 90 Oximetry Oxygen Devices in Use Now: High Flow Nasal Cannula Appearance: 68 yo m in nAD, aAOx3 Eyes: No Scleral Icterus, PERRLA Ears/Nose/Mouth/Throat: NL Teeth, Lips, Gums, Mucous Membranes Moist Neck: NL Appearance and Movements; NL JVP, Trachea Midline Respiratory: Symmetrical Chest Expansion and Respiratory Effort, Clear to Auscultation Cardiovascular: NL Sounds; No Murmurs; No JVD, RRR Abdominal: NL Sounds; No Tenderness; No Distention, - - midline incision stapled -no dehiscence, no erythema Lymphatic: No Cervical Adenopathy Extremities: No Edema, No Clubbing, Cyanosis Skin: No Nodules or Sclerosis Neurological: Alert and Oriented x 3, NL Muscle Strength and Tone Result Diagrams: 10/19/18 10:50 10/19/18 10:50 Assess/Plan/Problems-Billing Assessment: 68 yo M s/p laparotomy for SBO - Patient Problems (1) Hypoxia Comment: Diagnosed of acute PE on 10/18/18, although pt had hypoxemia in ED the first time he was hospitalized. Now on Xarelto Consolidation on chest X-ray could be residual from prior aspiration ( aspirated periop). He received 5 doses of pip/lamin. CRP increased and on 10/15 , re-started pip/lamin-07/18-, off antibiotics today tx with Lasix 40 mg IV x 1 10/17, 10/18 for fluid overload. will cont Lasix IV x 20 mg today (2) SBO (small bowel obstruction) Comment: Management per Dr. Hinojosa. Off antibiotics as of 10/14, then placed back on Zosyn 10/15-10/17 s/p laparotomy, lysis of adhesions, perf repair and reanastomosis on 10/12/18 Tolerating diet, surgery to see pt prn (3) New onset atrial fibrillation Comment: Cont metoprolol and ASA Monitor on telemetry. Transient a. fib on 10/08-10/09 TTE 10/14 showed nl LVEF, mild LVH, grade 1 diastolic dysfunction. (4) History of DVT of lower extremity Comment: After 19 hrs of plane travel 4 yrs ago-DVT and PE. 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
[2018-10-20 05:45] LABS: ABS Basophils 0.1 10^3/ul (0-0.2); ABS Eosinophils 0.3 10^3/ul (0-0.6); ABS Lymphocytes 1.5 10^3/ul (1.0-4.8); ABS Monocytes 0.9 10^3/ul (0-0.8); ABS Neutrophils 7.6 10^3/ul (1.5-7.7); Eosinophil % 2.6 %; Hematocrit 39 % (42-52); Mean Corpuscular HGB Conc 34 g/dL (31-36); Mean Corpuscular Hemoglobin 29 pg (27-31); Mean Corpuscular Volume 87 fL (80-94); Mean Platelet Volume 7.2 fL (7.4-10.4); Platelet Count 500 10^3/uL (150-450); Red Blood Count 4.47 10^6 /uL (4.18-5.48); Red Cell Distribution Width 13 % (10.5-15); White Blood Count 10.3 10^3/uL (3.5-10.8)
[2018-10-20 06:05] LABS: BUN/Creatinine Ratio 15.9 (8-20); Calcium 8.7 mg/dL (8.6-10.3); EGFR African American 137.6 (>60); EGFR Non-African American 113.7 (>60); Magnesium 1.9 mg/dL (1.9-2.7)
[2018-10-20] MEDS: Aspirin EC TAB* 81 MG TAB.EC PO SCH (08:56)
[2018-10-20] MEDS: Rivaroxaban TAB(*) 15 MG PO SCH ×2 (08:56→21:13)
[2018-10-20] MEDS: Metoprolol Tartrate TAB* 25 MG PO SCH ×2 (08:56→21:13)
[2018-10-20] MEDS: Hydrocortisone 1% CREAM* 30 GM TUBE TOPICAL SCH ×2 (08:57→21:12)
--- NOTE | 2018-10-20 14:50 | PN ---
Subjective Date of Service: 10/20/18 Interval History: Pt asking when he can go home. Again understands when he is off oxygen, as his insurance will not cover home O2 for PE. Was on [place] 8L yesterday, today at 2L. Has been using the incentive spirometer and walking around the floors. Denies SOB, abd pain, constipation, diarrhea. Has good appetite. Objective Active Medications: Aspirin (Aspirin Ec Tab*) 81 mg PO DAILY [facility] Last Admin: 10/20/18 08:56 Dose: 81 mg Hydrocortisone (Hytone Cream 1%*) 1 applic TOPICAL BID [facility] Last Admin: 10/20/18 08:57 Dose: 1 applic Hydromorphone HCl (Dilaudid Inj1s*) 0.5 mg IV SLOW PU Q2H PRN PRN Reason: PAIN Last Admin: 10/16/18 22:26 Dose: 0.5 mg Metoprolol Tartrate (Lopressor Tab*) 12.5 mg PO BID [facility] Last Admin: 10/20/18 08:56 Dose: 12.5 mg Naloxone HCl (Narcan*) 0.08 mg IV PUSH .Q2MIN PRN PRN Reason: OVERSEDATION Ondansetron HCl (Zofran Inj*) 4 mg IV Q6H PRN PRN Reason: NAUSEA/VOMITING Rivaroxaban (Xarelto(*)) 15 mg PO BID [facility] Last Admin: 10/20/18 08:56 Dose: 15 mg Temazepam (Restoril Cap*) 15 mg PO BEDTIME PRN PRN Reason: INSOMNIA Last Admin: 10/18/18 21:32 Dose: 15 mg Vital Signs - 8 hr 10/20/18 10/20/18 10/20/18 07:39 08:00 11:06 Temperature 98.1 F Pulse Rate 72 Respiratory 16 18 Rate Blood Pressure 127/64 (mmHg) O2 Sat by Pulse 96 94 Oximetry 10/20/18 11:22 Temperature 97.6 F Pulse Rate 64 Respiratory 17 Rate Blood Pressure 107/61 (mmHg) O2 Sat by Pulse 94 Oximetry Oxygen Devices in Use Now: Nasal Cannula Appearance: well appearing, NAD, friendly and interactive Ears/Nose/Mouth/Throat: Clear Oropharnyx, Mucous Membranes Moist Neck: NL Appearance and Movements; NL JVP Respiratory: Clear to Auscultation Cardiovascular: RRR Abdominal: - - midline stapled incision c/d/i Extremities: - - trace edema over ankles b/l Skin: No Rash or Ulcers Neurological: NL Muscle Strength and Tone Result Diagrams: 10/20/18 05:06 10/20/18 05:06 Assess/Plan/Problems-Billing Assessment: 68 yo M s/p laparotomy for SBO, course complicated by PE as well as twyla-op aspiration. - Patient Problems (1) Hypoxia Comment: - Diagnosed w acute PE on 10/18/18, although pt had hypoxemia in ED the first time he was hospitalized. Now on Xarelto. - Consolidation on chest X-ray could be residual from prior aspiration ( aspirated periop). He received 5 doses of pip/lamin. CRP increased and on 10/15 , re-started pip/lamin-07/18-, off antibiotics today. - Also w dHF tx with Lasix IV for fluid overload, now on PO (2) New onset atrial fibrillation Comment: Cont metoprolol and ASA (low CHADsVASC) On AC for PE. (3) SBO (small bowel obstruction) Comment: Management per Dr. Hinojosa. Off antibiotics as of 10/14, then placed back on Zosyn 10/15-10/17 s/p laparotomy, lysis of adhesions, perf repair and reanastomosis on 10/12/18 Tolerating diet, surgery to see pt prn (4) DVT prophylaxis Comment: on therapeutic AC Status and Disposition: Pending no supplemental O2.
[2018-10-20] MEDS: Furosemide TAB* 20 MG PO SCH (15:50)
[2018-10-20] MEDS: Temazepam CAP* 15 MG PO PRN (21:16)
[2018-10-21 05:55] LABS: BUN/Creatinine Ratio 17.4 (8-20); Calcium 8.8 mg/dL (8.6-10.3); EGFR African American 137.6 (>60); EGFR Non-African American 113.7 (>60); Potassium 4.1 mmol/L (3.5-5.0)
[2018-10-21] MEDS: Aspirin EC TAB* 81 MG TAB.EC PO SCH (08:43)
[2018-10-21] MEDS: Furosemide TAB* 20 MG PO SCH (08:44)
[2018-10-21] MEDS: Rivaroxaban TAB(*) 15 MG PO SCH (08:44)
[2018-10-21] MEDS: Metoprolol Tartrate TAB* 25 MG PO SCH (08:44)
[2018-10-21] MEDS: Hydrocortisone 1% CREAM* 30 GM TUBE TOPICAL SCH (08:45)
[2018-10-21 12:04] VITALS: BP 127/61
--- NOTE | 2018-10-21 21:53 | DS ---
CC: Dr. Polo Scott * DISCHARGE SUMMARY: DATE OF ADMISSION: 10/12/18 DATE OF DISCHARGE: 10/21/18 PRIMARY CARE PHYSICIAN: Dr. Polo Scott. PRIMARY DIAGNOSES: 1. Small bowel obstruction complicated by perforation. 2. Pulmonary embolism. 3. Aspiration pneumonia. SECONDARY DIAGNOSIS: Paroxysmal atrial fibrillation. CONSULTS: Initially on surgical service transferred to hospitalist service. PROCEDURES: Laparoscopic lysis of adhesions, exploratory laparotomy and small bowel resection with primary anastomosis on 10/12/18. DISCHARGE MEDICATIONS: 1. Rivaroxaban 15 mg twice a day for 21 days, then 20 mg daily with food. 2. Furosemide 20 mg daily. 3. Metoprolol tartrate 12.5 mg twice a day. 4. Aspirin 81 mg daily. HISTORY OF PRESENT ILLNESS: This is a 68-year-old man with history of provoked PE who initially presented to the emergency room on 10/07/18 with abdominal pain that was progressive and associated with no bowel movements. He was initially admitted for small bowel obstruction, which surgeon, Dr. Giovanna Spangler elected to manage without surgical intervention. He was discharged on 10/10/18 since that time he has not been able to pass flatus and only had one small bowel movement on day prior to representation on 10/11/18. HOSPITAL COURSE: Abdominal x-ray showed obstructive picture, so the patient was admitted to surgical service for persisting small-bowel obstruction and NG tube was placed with moderate improvement in pain and distention. He was educated on indications, risks and benefit of surgery and underwent initially laparoscopy, which was converted to an ex lap with Dr. Hinojosa on 10/12/18 with bowel resection with primary anastomosis. During procedure, the patient received IV antibiotics and generally seemed to tolerate the procedure well; however, he may have also experienced an aspiration event during that time, as the patient had persistent hypoxia after the procedure. Although, of note, he did have hypoxia during prior admission for which a CT/PE scan had been negative. Given persistent hypoxia, the patient underwent a chest x-ray which showed a possible consolidation. The patient had already received 5 doses of Zosyn for abdominal surgery, but given increasing CRP, he was reinitiated on Zosyn given concern for aspiration pneumonia contributing to hypoxia. He was also noted to have lower extremity edema with possible pulmonary edema and had crackles on chest auscultation, so he was diuresed with Lasix IV. A TTE did show mild diastolic dysfunction and the patient did improve with IV diuretics. The patient underwent lower extremity Dopplers on 10/18/18 given concern for recurrence of PE, which could have also been contributing to hypoxia and patient with history of PE and DVT. Doppler showed occlusive thrombus of left great saphenous vein, so the patient later underwent a chest CTA, which showed multiple filling defects in the lingula and left upper lobe of the left pulmonary artery consistent with pulmonary embolism, so the patient was initiated on anticoagulation. He completed a course of Zosyn for aspiration pneumonia and several days of IV diuresis while on anticoagulation for PE and continued to improve in his respiratory status and was eventually able to be weaned off nasal cannula supplemental oxygen. For the last few days of his hospital course he denied abdominal pain, nausea, vomiting. He was reporting good tolerance to regular diet with regular bowel movements. On day of discharge a complete 10 point review of systems was performed and was negative. PHYSICAL EXAM: Afebrile, heart rate 60s, blood pressure 127/61, respiratory rate 17, oxygen saturation 92% on room air. In general, he is a well appearing pleasant man in no acute distress, appears younger than stated age. HEENT: OP clear. Moist mucous membranes. Neck: Full range of motion intact. No JVD. Lungs: Clear to auscultation bilaterally. Heart: Regular rate and rhythm. No murmurs, gallops or rubs. Abdomen: Soft, nontender, nondistended. Midline stapled incision, clean, dry, and intact without dehiscence. Lower Extremities : Warm, well perfused, no edema. Skin: Without rashes. Neuro: A and O x3. Gait: Normal. PERTINENT STUDIES AND LABS: Hemoglobin 13, normocytic. Chest CTA 10/18/18 with multiple filling defects noted in the lingula and left upper lobe branches of the left pulmonary artery findings are consistent with pulmonary embolus. Right upper lobe infiltrate is noted. This is superimposed upon COPD, bilateral pleural effusions are noted. Venous Doppler study 10/18/18 with occlusive thrombus of the thigh level great saphenous vein, please correlate to history of superficial vein ablation. Transthoracic echocardiogram 10/13/18. LV cavity size normal, wall thickness mildly to moderately increased, systolic function is hyperdynamic with estimated EF 60% to 65%. Doppler parameters are consistent with abnormal left ventricular relaxation, grade 1 diastolic dysfunction. RV cavity size mildly dilated with systolic function low normal, MV, TV with mild regurgitation. Pulmonary arteries with systolic pressure mildly increased Pathologic surgical specimen pending DISCHARGE PLAN: The patient is to follow up closely with his primary care physician as well as his surgeon, Dr. Hinojosa. His medication changes are listed above. Of note, he was started on rivaroxaban twice a day for 21 days, to switch to 20 mg daily with meals during PCP visit. 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 He and his were expensively educated on the return precautions, which included but are not limited to a recurrence of abdominal pain, nausea and vomiting, shortness of breath. He is to resume a healthy diet, low in processed foods with activity as tolerated. DISPOSITION: Home CONDITION: Good. TIME SPENT: Apparently 60 minutes was spent on discharge of this patient. More than of which was spent with care coordination at bedside and for interview and exam. [id number]/[facility] [place] [id number]
== END 2018-10-21 14:00 | disposition home or self-care (01) | DRG 329 ==
LOC: ED 17:25 → SSU 20:29 → ICU 10-12 20:55 → SSU 10-13 16:34
PROVIDERS: ADMIT Surgery; ATTEND Internal Medicine
PROC: 0DNU4ZZ Release Omentum, Percutaneous Endoscopic Approach (ICD-10-PCS; 2018-10-12)
PROC: 0DB80ZZ Excision of Small Intestine, Open Approach (ICD-10-PCS; principal; 2018-10-12 13:45)
DX: K91.89 Other postprocedural complications and disorders of digestive system (principal); K63.1 Perforation of intestine (nontraumatic); J69.0 Pneumonitis due to inhalation of food and vomit; I26.99 Other pulmonary embolism without acute cor pulmonale; I82.812 Embolism and thrombosis of superficial veins of left lower extremity; K56.50 Intestinal adhesions [bands], unspecified as to partial versus complete obstruction; K56.7 Ileus, unspecified; Y73.3 Surgical instruments, materials and gastroenterology and urology devices (including sutures) associated with adverse incidents; I48.0 Paroxysmal atrial fibrillation; K57.30 Diverticulosis of large intestine without perforation or abscess without bleeding; R09.02 Hypoxemia; Z86.718 Personal history of other venous thrombosis and embolism; Z86.711 Personal history of pulmonary embolism; Z82.49 Family history of ischemic heart disease and other diseases of the circulatory system; Z83.3 Family history of diabetes mellitus; Z72.89 Other problems related to lifestyle; Z87.891 Personal history of nicotine dependence; Z79.01 Long term (current) use of anticoagulants; Z79.82 Long term (current) use of aspirin; Y92.9 Unspecified place or not applicable
CPT/HCPCS: 36415; 36600; 71045; 71275; 74019; 80048; 80053; 81003; 82803; 83605; 83690; 83735; 85025; 86140; 88307; 93005; 93306; 99284; A9270-GY; A9272-GY; C1776; J0330; J0694; J1100; J1170; J1644; J1940; J2250; J2405; J2543; J2704; J3010; Q9967

== ENCOUNTER 2018-10-27 12:32 | Emergency (ER) | payer MEDICARE, OTHER ==
--- OUTSIDE RECORDS SUMMARY | 2018-10-27 12:55 | XMS REPORT | Continuity of Care Document ---
:1950 External Reference #:[id number] Author Name Polo Scott M.D. Address [address] [place] [address], [address] [place] [address] Care Team Providers Name Role Phone Polo Scott M.D. 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 ETOH Use Occasionally consumes alcohol Tobacco Use Start: Unknown End: Patient is a former 1 ppd x 30 years, Unknown smoker quit in 1999 Recreational Drug Use Denies Drug Use Smoking Status Reviewed: 03/29/18 Patient is a former 1 ppd x 30 years, smoker quit in 1999 Allergies, Adverse Reactions, Alerts Description No Known Drug Allergies Medications Active Medications SIG Qnty Indications Ordering Date Provider Xarelto Starter Pack 15 mg bid for 21 Unknown 10/21/2018 days and then 20 mg 15&20mg TBPK qd Furosemide 1 by mouth every day Unknown 10/21/2018 20mg Tablets Metoprolol Tartrate 1/2 by mouth twice Unknown 10/21/2018 a day 25mg Tablets Shingrix 0.5ml intramuscular 1units Polo Scott, 03/29/2018 50mcg/0.5ML x 1 on month 0, and M.D. Suspension Rec 2-6 for 2 total doses Rosuvastatin Calcium 1 by mouth Tiw 30tabs Polo Scott, 10/02/2017 M.D. 5mg Tablets Advil as needed q 8 hrs Unknown 200mg Capsules Aspirin 1 by mouth every day 30tabs Polo Scott, 81mg Tablets M.D. DR History Medications Atorvastatin Calcium 1 by mouth 30tabs Polo Scott, 03/21/2016 - every day M.D. 09/22/2017 20mg Tablets Xarelto 1 by mouth 30tabs I26.99 Polo Scott, 03/16/2016 - 20mg Tablets every day M.D. 08/19/2016 No Active Medications Unknown 12/18/2015 - 12/18/2015 Naproxen take one tablet Unknown - 250mg Tablets by mouth twice 12/18/2015 daily as needed for pain Mens 50+ Multi 1 by mouth Unknown - Vitamin & Mineral twice daily 12/18/2015 Formula Tablets Fish Oil once daily Unknown - 1200mg 12/18/2015 Capsules Aspirin 1 by mouth Unknown - 325mg Tablets every day 03/16/2016 Xarelto 1 by mouth Unknown - 15mg Tablets twice daily for 03/16/2016 21 days Medications Administered in Office Medication SIG Qnty Indications Ordering Provider Date Admin Of Vaccine,One Vaccine Injection/BP Schedule 03/24/2017 Injection Admin Of Vaccine,One Vaccine Injection/BP Schedule 03/16/2016 Injection Admin Of Vaccine,One Vaccine Injection/BP Schedule 03/11/2015 Injection Immunizations CPT Code Status Date Vaccine Lot # [id number] Given 03/29/2018 Flucelvax Quad, 0.5mL, [facility] [address]-19 [id number] Given 03/24/2017 Flucelvax Quad, 0.5mL, [facility] [address]-07 [id number] Given 03/16/2016 Fluvirin 0.5 ML,[facility] 94714-568-70 [id number] Given 03/16/2016 Pneumococcal Vaccine, [facility] 2094-1357-86, 0.5 ML [id number] Given 03/11/2015 Fluvirin 0.5 ML,[facility] 19956-515-09 [id number] Given 03/11/2015 Prevnar 13, [facility] 0656-1175-94. 0.5 ML [id number] Vital Signs Date Vital Result Comment 03/29/2018 8:38am Weight 262.00 lb Height 71.6 inches 5'11.60" BP Systolic 118 mmHg LG Cuff BP Diastolic 62 mmHg LG Cuff Heart Rate 64 /min BMI (Body Mass Index) 35.9 kg/m2 Left Visual Acuity Distance 20/25 w/glasses Right Visual Acuity Distance 20/40 w/glasses Both Visual Acuity Distance 20/25 w/glasses 09/22/2017 8:58am Weight 251.00 lb Height 71.6 inches 5'11.60" BP Systolic 120 mmHg BP Diastolic 72 mmHg Heart Rate 60 /min Respiratory Rate 18 /min BMI (Body Mass Index) 34.4 kg/m2 03/24/2017 8:27am Weight 258.00 lb Height 71.6 inches 5'11.60" BP Systolic 140 mmHg BP Diastolic 80 mmHg Heart Rate 84 /min BMI (Body Mass Index) 35.4 kg/m2 09/14/2016 8:41am Weight 254.00 lb Height 71.6 inches 5'11.60" BP Systolic 120 mmHg BP Diastolic 80 mmHg Heart Rate 76 /min BMI (Body Mass Index) 34.8 kg/m2 03/16/2016 8:41am Weight 252.38 lb Height 71.6 inches 5'11.60" BP Systolic 130 mmHg BP Diastolic 72 mmHg Heart Rate 60 /min BMI (Body Mass Index) 34.6 kg/m2 02/25/2016 1:28pm Weight 255.00 lb Height 71.6 inches 5'11.60" BP Systolic 146 mmHg BP Diastolic 92 mmHg Heart Rate 72 /min O2 % BldC Oximetry 96 % BMI (Body Mass Index) 35.0 kg/m2 12/18/2015 2:29pm Weight 254.00 lb Height 71.6 inches 5'11.60" BP Systolic 138 mmHg BP Diastolic 80 mmHg Heart Rate 80 /min BMI (Body Mass Index) 34.8 kg/m2 03/11/2015 9:30am Weight 254.38 lb Height 71.6 inches 5'11.60" BP Systolic 142 mmHg BP Diastolic 78 mmHg Body Temperature 97.8 F Heart Rate 66 /min O2 % BldC Oximetry 96 % Respiratory Rate 16 /min BMI (Body Mass Index) 34.9 kg/m2 Results Test Date Facility Test Result H/L Range Note Lipid Studies 03/26/2018 [facility] Triglycerides 140 mg/dL 0-[address] [address] [phone] Cholesterol 183 mg/dL 120-200 HDL Cholesterol 57.0 mg/dL 40-60 VLDL (Calc.) 28 mg/dL <31 Cholesterol/HDL 3.21 Ratio <5.00 LDL (Calc.) 98 mg/dL 0-99 1 Comp. Metabolic 03/26/2018 [facility] Glucose 97.5 mg/dL 65 -[address] [place] [address] [phone] BUN 12.0 mg/dL 7-21 Co2 24.7 mmol/L 22-30 Sodium 140 mmol/L 137-145 Potassium 4.6 mmol/L 3.6-5.2 Chloride 106 mmol/L 98-110 Calcium 9.8 mg/dL 9-10.5 Creatinine 0.83 mg/dL 0.52-1.25 eGFR (Male) >60 2 Total Protein 7.08 g/dL 6.3-8.2 Albumin 4.07 g/dL 3.3-4.50 Sgot (Ast) 21.0 U/L 5-40 Alk Phosphatase 72.0 U/L 38-126 Total Bilirubin 0.76 mg/dL 0.2-1.3 SGPT (Alt) 22.0 U/L 7-56 Anion Gap (Calc) 9.3 7-16 BUN/Crea Ratio 14.5 Ratio 7-25 Globulin (Calc) 3.01 g/dL 2.3-3.5 A/G Ratio (Calc) 1.4 Ratio 1.1-2.2 Laboratory test 03/26/2018 [facility] TSH 2.73 uIU/mL 0.5- 6.0 finding [address] [address] [phone] PSA 0.61 ng/mL 0-4.0 Lipid Panel 09/22/2017 [facility] Cholesterol 211 mg/dL High 120-200 17 [place], [place] [id number] [phone] Triglycerides 91 mg/dL 0-149 HDL Cholesterol 50 mg/dL 40-60 Chol/HDL Ratio 4.2 <=4.9 3 LDL Direct 137 mg/dL High 0-99 VLDL Calculated 18 Comprehensive Panel 09/22/2017 [facility] Sodium 138 mmol/L 136-145 [address] [place] [address] [phone] Potassium 5.0 mmol/L 3.5-5.2 Chloride 105 mmol/L 100-108 Co2 25 mmol/L 21-32 Glucose 105 mg/dL High 70-100 BUN 15 mg/dL 7-21 Creatinine 0.8 mg/dL 0.6-1.3 4 Calcium 9.5 mg/dL 8.5-10.8 GFR >60 T Bili 1.3 mg/dL High 0.0-1.2 T Protein 7.1 gm/dL 6.4-8.2 Albumin 4.4 gm/dL 3.2-4.6 Alk Phos 87 U/L 40-150 Alt (SGPT) 25 U/L 0-55 Ast (Sgot) 23 U/L 5-37 Lipid Panel 03/24/2017 [facility] Cholesterol 163 mg/dL 120-200 [address] [place] [address] [phone] Triglycerides 122 mg/dL 0-149 HDL Cholesterol 54 mg/dL 40-60 Chol/HDL Ratio 3.0 <=4.9 5 LDL Direct 89 mg/dL 0-99 VLDL Calculated 24 Comprehensive Panel 03/24/2017 [facility] Sodium 138 mmol/L 136-145 17 [place], [place] [address] [phone] Potassium 4.5 mmol/L 3.5-5.2 Chloride 103 mmol/L 100-108 Co2 29 mmol/L 21-32 Glucose 99 mg/dL 70-100 BUN 16 mg/dL 7-21 Creatinine 0.9 mg/dL 0.6-1.3 6 Calcium 9.3 mg/dL 8.5-10.8 GFR >60 T Bili 0.7 mg/dL 0.0-1.2 T Protein 7.1 gm/dL 6.4-8.2 Albumin 4.3 gm/dL 3.2-4.6 Alk Phos 89 U/L 40-150 Alt (SGPT) 27 U/L 0-55 Ast (Sgot) 22 U/L 5-37 Laboratory test 03/24/2017 [facility] TSH 2.95 uIU/mL 0.34 -4.82 finding 17 [place] [address] [phone] PSA 1.30 ng/mL 0.03-4.00 7 Lipid Panel 03/16/2016 [facility] Cholesterol 213 mg/dL High 120-200 [address] [place] [address] [phone] Triglycerides 90 mg/dL 0-149 HDL Cholesterol 55 mg/dL 40-60 Chol/HDL Ratio 3.9 <=4.9 8 LDL Direct 161 mg/dL High 0-99 VLDL Calculated 18 CBC W/Auto Differential 03/16/2016 [facility] WBC 6.2 K/uL 4.8-10.8 [address] [place] [address] [phone] RBC 5.31 M/uL 4.60-6.20 Hemoglobin 16.2 gm/dL 13.5-18.0 Hematocrit 47.0 % 41.0-53.0 MCV 88.5 fL 80.0-100.0 MCHC 34.4 % 30.0-36.5 MCH 30.4 pg 27.0-34.0 RDW 11.9 % 11.0-15.0 Platelet 274 K/uL 130-450 MPV 7.4 fL 6.0-12.0 NE% 53 % 37-80 Ly% 33 % 10-50 Mo% 10 % 0-12 Eo% 5 % <=8 Ba% 0 % <=3 NE# 3.3 K/uL 1.8-8.6 Lymph# 2.0 K/uL 0.5-5.0 [place]# 0.6 K/uL 0.0-1.3 Eos# 0.3 K/uL 0.0-0.9 Baso# 0.0 K/ul 0.0-0.3 Laboratory test 03/16/2016 [facility] TSH 2.66 uIU/mL 0.34 -4.82 finding 17 [place] [address] [phone] Vit D 25 Hydroxy 38 NG/ML 30-95 9 PTG [id number] 02/25/2016 [facility] Factor II, Dna Comment L 10 17 [facility] [place] [place] [address] [phone] Additional Information: Comment L 11 Factor 5 Leiden 02/25/2016 [facility] Factor V Leiden Comment L 12 [address] [place], [place] [id number] [phone] Comment Comment L 13 Cardiolipin Abs 02/25/2016 [facility] Anticardiolipin <9 GPLU /mL 0-14 14 @ [address] [place] [address] Ab,IgG,[place] [address] [phone] Anticardiolipin Ab,IgM,Qn <9 MPLU/mL 0-12 15 Anticardiolipin Ab,IgA,Qn <9 APLU/mL 0-11 16 Lupus Anticoagulant 02/25/2016 [facility] PTT-LA 48.6 sec 0.0-50.0 17 [address] [place] [address] [phone] dRVVT 70.3 sec High 0.0-55.1 18 Lupus Reflex Interpretation Comment: L 19 dRVVT Mix 60.8 sec High 0.0-45.4 20 Laboratory test 02/25/2016 [facility] Antithrombin III 87 % 75-135 21 finding 17 [facility] Activ @ [So] [place] [address] [phone] Homocysteine [So] 13.1 umol/L 0.0-15.0 Laboratory test 03/13/2015 [facility] Vitamin D 25Oh 33 ng/mL 31-100 22 finding [address] [address] [phone] Lipid Studies 03/13/2015 [facility] Triglycerides 141 mg/dL 0-[address] [address] [phone] Cholesterol 238 mg/dL High 120-200 HDL Cholesterol 53.0 mg/dL 40-60 VLDL (Calc.) 28 mg/dL <31 Cholesterol/HDL 4.49 Ratio <5.00 LDL (Calc.) 157 mg/dL High 0-99 23 Comp. Metabolic 03/13/2015 [facility] Glucose 108.2 mg/dL 65-[address] [place] [address] [phone] BUN 11.3 mg/dL 7-21 Co2 22.5 mmol/L 22-30 Sodium 143 mmol/L 137-145 Potassium 4.7 mmol/L 3.6-5.2 Chloride 105 mmol/L 98-110 Calcium 9.5 mg/dL 9-10.5 Creatinine 0.83 mg/dL 0.52-1.25 Total Protein 6.69 g/dL 6.3-8.2 Albumin 3.75 g/dL 3.3-4.50 Sgot (Ast) 18.0 U/L 5-40 Alk Phosphatase 84.0 U/L 38-126 Total Bilirubin 0.47 mg/dL 0.2-1.3 SGPT (Alt) 23.0 U/L 7-56 Anion Gap (Calc) 15.5 7-16 BUN/Crea Ratio 13.6 Ratio 7-25 Globulin (Calc) 2.94 g/dL 2.3-3.5 A/G Ratio (Calc) 1.3 Ratio 1.1-2.2 Laboratory test 03/13/2015 [facility] TSH 1.81 uIU/mL 0.5- 6.[address] [place] [address] [phone] CBC 03/13/2015 [facility] WBC 6.1 10^3/uL 4.8-10.[address] [place] [address] [phone] RBC 5.29 10^6/uL 4.2-6.1 HGB 15.7 g/dL 12.0-18.0 HCT 47.2 % 37-52 MCV 89.2 fL 80.0-99.9 MCH 29.7 pg 26.0-32.0 MCHC 33.3 g/dL 31.0-36.0 RDW 12.80 % 11.0-15.0 MPV 7.1 fL Low 7.4-10.4 Platelets 323 10^3/uL 130-400 Auto Diff 03/13/2015 [facility] Lymphocytes % 26.20 % 20.5- 51.[address] [place] [address] [phone] Monocytes % 7.60 % 1.7-9.3 Granulocyte % 66.2 % 42.2-75.2 Lymphocytes # 1.6 10^3/uL 0.6-4.1 Monocytes # 0.5 10^3/uL 0.0-1.8 Granulocyte # 4.0 10^3/uL 2.0-7.8 Laboratory test finding 03/13/2015 [facility] eGFR (Male) 99 >59 24 [address] [place] [address] [phone] 1 LDL(Calc.) invalid if triglycerides >400. 2 For Patients, multiply result by 1.159 Units expressed as mL/min/1.73m^2 Normal Range is > or=to 60. 3 Cholesterol/HDL Ratio Interpretation Risk : 1/2 Avg Avg 2x Avg 3x Avg Male : 3.43 4.97 9.50 23.99 Female : 3.27 4.44 7.05 11.04 4 Normal Kidney Function or Mild Disease - GFR >OR=60 Chronic Kidney Disease - GFR 15-59 Renal Failure - GFR < 15 GFR not calculated on patients under 18 years of age. 5 Cholesterol/HDL Ratio Interpretation Risk : 1/2 Avg Avg 2x Avg 3x Avg Male : 3.43 4.97 9.50 23.99 Female : 3.27 4.44 7.05 11.04 6 Normal Kidney Function or Mild Disease - GFR >OR=60 Chronic Kidney Disease - GFR 15-59 Renal Failure - GFR < 15 GFR not calculated on patients under 18 years of age. 7 . [employer] Chemiluminescent Immunoassay Do NOT use interchangeably with other methods. NOT to be used as a Cancer Screening NOR as a guide in Disease Staging. 8 Cholesterol/HDL Ratio Interpretation Risk : 1/2 Avg Avg 2x Avg 3x Avg Male : 3.43 4.97 9.50 23.99 Female : 3.27 4.44 7.05 11.04 9 VITAMIN D STATUS VITAMIN D Level DEFICIENCY <20 NG/ML INSUFFICIENCY 20-30 NG/ML SUFFICIENCY 31-96 NG/ML POTENTIAL TOXICITY >96 NG/ML 10 NEGATIVE No mutation identified. . Comment: A point mutation ([id number]) in the factor II (prothrombin) gene is the second most common cause of inherited thrombophilia. The incidence of this mutation in the [place] population is about 2% and in the population it is approximately 0.5%. This mutation is rare in the and population. Being heterozygous for a prothrombin mutation increases the risk for developing venous thrombosis about 2 to 3 times above the general population risk. Being homozygous for the prothrombin gene mutation increases the relative risk for venous thrombosis further, although it is not yet known how much further the risk is increased. In women heterozygous for the prothrombin gene mutation, the use of estrogen containing oral contraceptives increases the relative risk of venous thrombosis about 16 times and the risk of developing cerebral thrombosis is also significantly increased. In the prothrombin gene mutation increases risk for venous thrombosis and may increase risk for stillbirth, placental abruption, pre-eclampsia and growth restriction. If the patient possesses two or more congenital or acquired thrombophilic risk factors, the risk for thrombosis may rise to more than the sum of the risk ratios for the individual mutations. This assay detects only the prothrombin [id number] mutation and does not measure genetic abnormalities elsewhere in the genome. Other thrombotic risk factors may be pursued through systematic clinical laboratory analysis. These factors include the R506Q (Leiden) mutation in the Factor V gene, plasma homocysteine levels, as well as testing for deficiencies of antithrombin III, protein C and protein S. 11 Genetic Counselors are available for health care providers to discuss results at [phone]). . Methodology: DNA analysis of the Factor II gene was performed by PCR amplification followed by restriction analysis. The diagnostic sensitivity is >99% for both. All the tests must be combined with clinical information for the most accurate interpretation. Molecular-based testing is highly accurate, but as in any laboratory test, diagnostic errors may occur. . Poort SR, et al. Blood. 1996; 88:5199-5289. Charlee DIAS. Circulation. 2004; 110:e15-e18. Pantera I, et al. Arterioscler Thromb Vasc Biol. 1999; 19:700-703. . Lan Daly, PhD, [facility] Iris Mueller, PhD, [facility] Mica Paredes, PhD, [facility] Tressa Mukherjee M.S., PhD, [facility] Sania Briceno, PhD, [facility] Abdirahman Vickers, PhD, [facility] John Khalil, PhD, [facility] 12 Result: Negative (no mutation found) . Factor V Leiden is a specific mutation (R506Q) in the factor V gene that is associated with an increased risk of venous thrombosis. Factor V Leiden is more resistant to inactivation by activated protein C. As a result, factor V persists in the circulation leading to a mild hyper- coagulable state. The Leiden mutation accounts for 90% - 95% of APC resistance. Factor V Leiden has been reported in patients with deep vein thrombosis, pulmonary embolus, central retinal vein occlusion, cerebral sinus thrombosis and hepatic vein thrombosis. Other risk factors to be considered in the workup for venous thrombosis include the [id number] mutation in the factor II (prothrombin) gene, protein S and C deficiency, and antithrombin deficiencies. Anticardiolipin antibody and lupus anticoagulant analysis may be appropriate for certain patients, as well as homocysteine levels. . Contact your local [facility] for information on how to order additional testing if desired. . 13 Genetic counselors are available for health care providers to discuss results at [phone] . Methodology: DNA analysis of the Factor V gene was performed by allele-specific PCR. The diagnostic sensitivity and specificity is >99% for both. Molecular-based testing is highly accurate, but as in any laboratory test, diagnostic errors may occur. All test results must be combined with clinical information for the most accurate interpretation. . References: Angelica Oreilly (1996). Clin Lab Med 16:169-186. . Lan Daly, PhD, [facility] Iris Mueller, PhD, [facility] Mica Paredes, PhD, [facility] Tressa Mukherjee M.S., PhD, [facility] Sania Briceno, PhD, [facility] Abdirahman Vickers, PhD, [facility] John Khalil PhD, [facility] 14 Negative: <15 Indeterminate: 15 - 20 Low-Med Positive: >20 - 80 High Positive: >80 15 Negative: <13 Indeterminate: 13 - 20 Low-Med Positive: >20 - 80 High Positive: >80 16 Negative: <12 Indeterminate: 12 - 20 Low-Med Positive: >20 - 80 High Positive: >80 17 Effective March 14, 2016 PTT-LA reference interval will be changing to: 0.0 - 40.6 18 Effective March 14, 2016 dRVVT reference interval will be changing to: 0.0 - 44.0 19 No lupus anticoagulant was detected. These results are consistent with specific inhibitors to one or more common pathway factors (X, V, II or fibrinogen). 20 Effective March 14, 2016 dRVVT Mix reference interval will be changing to: 0.0 - 44.0 21 Effective March 14, 2016 Antithrombin Activity reference interval will be changing to: 0 - 3 days 27 - 55 4 days - 6 months 35 - 120 >6 months 75 - 135 22 FASTING 23 LDL(Calc.) invalid if triglycerides >400. 24 Units expressed as mL/min/1.73m^2 Procedures Date Code Description Status 08/24/2017 [id number] Colonoscopy Completed 05/22/2009 [id number] Colonoscopy Completed Encounters Type Date Location Provider Dx Diagnosis Office Visit 09/22/2017 Main Office Polo Scott E78.2 Mixed hyperlipidemia 9:00a [facility] Z71.3 Dietary counseling and surveillance Office Visit 03/24/2017 8:30a Main Office Polo Scott, Z00.00 Encntr for [facility] general adult medical exam w/o abnormal findings E78.2 Mixed hyperlipidemia Z86.711 Personal history of pulmonary embolism Z12.11 Encounter for screening for malignant neoplasm of colon Z12.5 Encounter for screening for malignant neoplasm of prostate Z68.35 Body mass index (BMI) 35.0-35.9, adult Office Visit 09/14/2016 8:30a Main Office Polo Scott E78.2 Mixed hyperlipidemia M.D. Z86.711 Personal history of pulmonary embolism Office Visit 03/16/2016 8:30a Main Office Polo Scott, Z00.00 Encntr for [facility] general adult medical exam w/o abnormal findings I26.99 Other pulmonary embolism without acute cor pulmonale E78.2 Mixed hyperlipidemia Office Visit 02/25/2016 1:30p Main Office Polo Scott I26.99 Other pulmonary M.D. 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 adult medical exam w/o abnormal findings Z13.220 Encounter for screening for lipoid disorders Plan of Treatment Future Appointment(s):10/26/2018 9:00 am - Polo Scott M.D. at Main [id number] 8:30 am - Polo Scott M.D. at Main [id number]/29/2018 - Polo Scott M.D.Z00.00 Encounter for general adult medical examination without abnoE78.2 Mixed hyperlipidemiaNew Labs:LP (Lipid), Ordered: 03/29/18CMP, Ordered: Recommendations:PLEASE TRY TAKING ROSUVASTATIN 3 TIMES A WEEKZ86.711 Personal history of pulmonary hufoyxuiX58.891 Personal history of nicotine ahorynytclR35.3 Dietary counseling and cvwckfznkvevT52.35 Body mass index (BMI) 35.0-35.9, adultAllNew Medication:Shingrix 50 mcg/0.5ML - 0.5ml intramuscular x 1 on month 0, and 2-6 for 2 total dosesFollow up:6 months f/u, fasting blood work 1-2 weeks prior to next appt PLEASE BRING ALL YOUR PILL BOTTLES WITH YOU ON YOUR NEXT VISIT
--- OUTSIDE RECORDS SUMMARY | 2018-10-27 12:55 | XMS REPORT | Continuity of Care Document ---
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 Payers Date Identification Numbers Payment Provider Subscriber Policy Number: [id number] Medicare Bettie Chong PayID: [id number] [address] [place] [address] Policy Number: [id number] For Life Bettie Chong PayID: [id number] [address] [place] [address] Family History Date Family Member(s) Observation Comments General Heart Disease General Diabetes General Cancer Social History Type Date Description Comments Sex Unknown Marital Status Lives With Spouse Occupation Retired ETOH Use Drinks 5 Alcoholic Beverages Per Week Tobacco Use Start: Unknown End: Patient is a former smoker Unknown Recreational Drug Use Denies Drug Use Smoking Status Reviewed: 10/25/18 Patient is a former smoker Exercise Type/Frequency Exercises regularly Allergies, Adverse Reactions, Alerts Description No Known Drug Allergies Medications Active Medications SIG Qnty Indications Ordering Provider Date Keflex 1 cap by mouth 21caps T81.41xA Edgard Hinojosa MD, 10/25/2018 500mg Capsules three times a FACS day Aspirin 1 by mouth Unknown 81mg Tablets DR every day Centrum Adults Unknown Tablets Xarelto 1 by mouth Unknown 15mg Tablets every day Furosemide 1 by mouth Unknown 20mg Tablets every day Metoprolol Tartrate 1 by mouth Unknown 25mg twice a day Tablets History Medications Xarelto take one tab per day Unknown - Unknown 10mg Tablets Vital Signs Date Vital Result Comment 10/25/2018 11:08am Height 73 inches 6'1" Weight 221.00 lb Heart Rate 68 /min BP Systolic 122 mmHg BP Diastolic 72 mmHg Respiratory Rate 18 /min Body Temperature 97.6 F BMI (Body Mass Index) 29.2 kg/m2 Results Test Date Facility Test Result H/L Range Note Laboratory test 10/12/2018 [facility] Surgical SEE RESULT [address] [place] [address] [phone] 1 SEE RESULT BELOW Name: BETTIE CHONG : [address]: Edgard Hinojosa MD Acct: [id number] Unit: [id number] AGE: 68 Location: [place] [address] Re10/11/18 SEX: M Status: ADM IN SPEC: [id number] PELON: 10/12/18- [facility] DR: Edgard Hinojosa MD REQ: [id number] RECD: 10/12/18 STATUS: SOUT _ ORDERED: LEVEL 5/2 FINAL DIAGNOSIS 1. Small bowel, partial resection: -- Transmural necrosis with perforation. -- Margins of resection viable. -- Two benign lymph nodes (0/2). 2. Small bowel, partial resection: -- Benign small intestinal tissue with no significant pathologic abnormalities. -- Five benign lymph nodes (0/5). PRE-OPERATIVE DIAGNOSIS Small bowel obstruction; 1) suture hansen perforation GROSS DESCRIPTION 1. The specimen is received in formalin labeled, Portion of Small Intestine Perforation, Suture Hansen Perforation, and consists of a 27.5 x 3.5 cm unoriented portion of small bowel with abundant adherent yellow-pulido fat. There is a 1.4 by up to 0.4 cm dusky brown-white to green irregular purulent transmural perforation with an attached suture surrounded by a small amount of brown-white fibropurulent exudate, 9.1 cm from the nearest margin. The serosa is smooth to focally shaggy brown-llanes with a few adhesions and a small amount of adherent rubbery soft tissue. There is a 0.8 x 0.7 cm mucosal defect containing green fecal material which extends to the previously described perforation. The surrounding mucosa and the mesenteric tissue are purulent and dusky brown-green. The remaining mucosa is glistening brown with normal folds. Sectioning through the adherent fat reveals a few brown- llanes lymph nodes measuring up to 0.4 cm. The perforation is inked and inside sales representative sections are submitted in cassettes A through F as follows: A-margin, B through D- perforation, E- mucosa and F-lymph nodes. CONTINUED ON NEXT PAGE DEPARTMENT OF PATHOLOGY, [address] [place] [address] Xavi David M.D. Director [facility] # [id number] RUN DATE: 10/17/18 [facility] LAB LIVE PAGE 2 Patient: BETTIE CHONG [id number] (Continued) GROSS DESCRIPTION (Continued) 2. The specimen is received in formalin labeled, Additional Small Bowel, and consists of a 44.0 x 3.4 cm portion of small bowel with abundant adherent yellow fat. The serosa is glistening smooth brown-white to pulido. The mucosa is glistening brown green with normal folds. Sectioning through the adherent fat reveals a few probable lymph nodes ranging from 0.2 cm to 0.6 cm in greatest dimension. Company Dancer sections are submitted in cassettes A through D as follows: A-margins, B and C-mucosa and D-lymph nodes. Signed by and Reported on: Tamy Albright MD 10/17/18 1406 END OF REPORT DEPARTMENT OF PATHOLOGY, [address] [place] [address] Xavi David M.D. Director [facility] # [id number] Procedures Date Code Description Status 10/14/2018 06822 ECHO Transthorasic Realtime 2D W Doppler & Color Flow Hosp Completed 10/12/2018 89438 Laparoscopy Enterectomy Intestinal Resection W/Anastomosis Completed 10/12/2018 89312 Laparoscopy Enterectomy Intestinal Resection W/Anastomosis Completed Encounters Type Date Location Provider Dx Diagnosis Office Visit 10/12/2018 Surgical Edgard Hinojosa, K56.601 Complete 7:00a [facility] YONATHAN MERAZ intestinal obstruction, unspecified as to cause Office Visit 10/10/2018 Surgical Giovanna Spangler MD K56.691 Other complete 7:00a [facility] intestinal obstruction Office Visit 10/09/2018 Surgical Giovanna Spangler MD K56.691 Other complete 7:00a [facility] intestinal obstruction Office Visit 10/08/2018 Surgical Giovanna Spangler MD K56.691 Other complete 7:00a [facility] intestinal obstruction Office Visit 10/07/2018 Surgical Giovanna Spangler MD K56.691 Other complete 7:00a [facility] intestinal obstruction Plan of Treatment Future Appointment(s):10/29/2018 9:30 am - Edgard Hinojosa MD, FACS at [facility]10/26/2018 11:00 am - Nurse Visit [facility] at [facility]10/25/2018 - Edgard Hinojosa MD, FACSK63.1 Perforation of intestine (nontraumatic)New Labs:Wound Culture/Sensi, Ordered: 10/25/18K56.52 Intestinal adhesions [bands] with complete yhmksprceuaB05.41xA Infection following a procedure, superficial incisional surgNew Medication:Keflex 500 mg - 1 cap by mouth three times a dayFollow up:Monday and Monday for wound packing change with MARIANA
--- OUTSIDE RECORDS SUMMARY | 2018-10-27 12:55 | XMS REPORT | Continuity of Care Document ---
:1950 External Reference #:[id number] Author Name Polo Scott M.D. Address [address] [place] [address], [address] [place] [address] Care Team Providers Name Role Phone Polo Scott M.D. Care Team Information Certified Physician'S Assistant Unavailable Payers Date Identification Numbers Payment Provider Subscriber Effective: 2017 Policy Number: [id number] Medicare Part B Dionisio Chong PayID: [id number] [employer] [address] [place] [address] Policy Number: [id number] /[place] Claim Dionisio Chong PayID: [id number] [address] [place] [address] Family History Date Family Member(s) Observation Comments Father due to Lung Cancer () Father due to Stomach Cancer () Mother Coronary Artery Disease (CAD) Mother Lymphoma First Brother Non Insulin Dependent Diabetes First Brother Blood Dyscrasia Social History Type Date Description Comments Sex Unknown Lives With 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 Occasionally consumes alcohol [...] CPT Code Status Date Vaccine Lot # [id number] Given 03/29/2018 Flucelvax Quad, 0.5mL, [facility] [address]-01 [id number] 10021 Given 03/24/2017 Flucelvax Quad, 0.5mL, [facility] [address]-11 [id number] Q2037 Given 03/16/2016 Fluvirin 0.5 ML,[facility] 08119-263-56 [id number] 40926 Given 03/16/2016 Pneumococcal Vaccine, [facility] 0211-5064-21, 0.5 ML [id number] Q2037 Given 03/11/2015 Fluvirin 0.5 ML,[facility] 79559-728-32 [id number] 14061 Given 03/11/2015 Prevnar 13, [facility] 2221-8095-49. 0.5 ML [id number] Vital Signs Date Vital Result Comment 03/29/2018 [facility] Triglycerides 140 mg/dL 0-[address] [address] [phone] Cholesterol 183 mg/dL 120-200 HDL Cholesterol 57.0 mg/dL 40-60 VLDL (Calc.) 28 mg/dL <31 Cholesterol/HDL 3.21 Ratio <5.00 LDL (Calc.) 98 mg/dL 0-99 1 Comp. Metabolic 03/26/2018 [facility] Glucose 97.5 mg/dL 65 -[address] [place] [address] [phone] BUN 12.0 mg/dL 7-21 Co2 24.7 mmol/L [...] TSH 2.73 uIU/mL 0.5- 6.0 finding [address] [address] [phone] PSA 0.61 ng/mL 0-4.0 Lipid Panel 09/22/2017 [facility] Cholesterol 211 mg/dL High 120-200 17 [place], [place] [address] [phone] Triglycerides 91 mg/dL 0-149 HDL Cholesterol 50 mg/dL 40-60 Chol/HDL Ratio 4.2 <=4.9 3 LDL Direct 137 mg/dL High 0-99 VLDL Calculated 18 Comprehensive Panel 09/22/2017 [facility] Sodium 138 mmol/L 136-145 17 [place] [address] [phone] Potassium 5.0 mmol/L 3.5-5.2 Chloride 105 mmol/L [...] (Sgot) 23 U/L 5-37 Lipid Panel 03/24/2017 [facility] Cholesterol 163 mg/dL 120-200 17 [place] [address] [phone] Triglycerides 122 mg/dL 0-149 HDL Cholesterol 54 mg/dL 40-60 Chol/HDL Ratio 3.0 <=4.9 5 LDL Direct 89 mg/dL 0-99 VLDL Calculated 24 Comprehensive Panel 03/24/2017 [facility] Sodium 138 mmol/L 136-145 17 [place], [place] [address] [phone] Potassium 4.5 mmol/L 3.5-5.2 Chloride 103 mmol/L 100-108 Co2 29 mmol/L 21-32 Glucose 99 mg/dL 70-100 BUN 16 mg/dL 7-21 Creatinine 0.9 mg/dL 0.6-1.3 6 Calcium 9.3 mg/dL 8.5-10.8 GFR >60 T Bili 0.7 mg/dL 0.0-1.2 T Protein 7.1 gm/dL 6.4-8.2 Albumin 4.3 gm/dL 3.2-4.6 Alk Phos 89 U/L 40-150 Alt (SGPT) 27 U/L 0-55 Ast (Sgot) 22 U/L 5-37 Laboratory test 03/24/2017 [facility] TSH 2.95 uIU/mL 0.34 -4.82 finding 17 [place] [address] [phone] PSA 1.30 ng/mL 0.03-4.00 7 Lipid Panel 03/16/2016 [facility] Cholesterol 213 mg/dL High 120-200 17 [place] [address] [phone] Triglycerides 90 mg/dL 0-149 HDL Cholesterol 55 mg/dL 40-60 Chol/HDL Ratio 3.9 <=4.9 8 LDL Direct 161 mg/dL High 0-99 VLDL Calculated 18 CBC W/Auto Differential 03/16/2016 [facility] WBC 6.2 K/uL 4.8-10.8 17 [place] [address] [phone] RBC 5.31 M/uL 4.60-6.20 Hemoglobin 16.2 gm/dL [...] 3.3 K/uL 1.8-8.6 Lymph# 2.0 K/uL 0.5-5.0 Barry# 0.6 K/uL 0.0-1.3 Eos# 0.3 K/uL 0.0-0.9 Baso# 0.0 K/ul 0.0-0.3 Laboratory test 03/16/2016 [facility] TSH 2.66 uIU/mL 0.34 -4.82 finding 17 [place] [address] [phone] Vit D 25 Hydroxy 38 NG/ML 30-95 9 PTG [id number] 02/25/2016 [facility] Factor II, Dna Comment L 10 17 [facility] [place] [address] [phone] Additional Information: Comment L 11 Factor 5 Leiden 02/25/2016 [facility] Factor V Leiden Comment L 12 17 [place], [place] [address] [phone] Comment Comment L 13 Cardiolipin Abs 02/25/2016 [facility] Anticardiolipin <9 GPLU /mL 0-14 14 @ [address] [place] [address] Ab,IgG,[place] [address] [phone] Anticardiolipin Ab,IgM,Qn <9 MPLU/mL 0-12 15 Anticardiolipin Ab,IgA,Qn <9 APLU/mL 0-11 16 Lupus Anticoagulant 02/25/2016 [facility] PTT-LA 48.6 sec 0.0-50.0 17 [address] [place] [address] [phone] dRVVT 70.3 sec High 0.0-55.1 18 Lupus Reflex Interpretation Comment: L 19 dRVVT Mix 60.8 sec High 0.0-45.4 20 Laboratory test 02/25/2016 [facility] Antithrombin III 87 % 75-135 21 finding 17 [facility] Activ @ [So] [place] [address] [phone] Homocysteine [So] 13.1 umol/L 0.0-15.0 Laboratory test 03/13/2015 [facility] Vitamin D 25Oh 33 ng/mL 31-100 22 finding [address] [address] [phone] Lipid Studies 03/13/2015 [facility] Triglycerides 141 mg/dL 0-[address] [address] [phone] Cholesterol 238 mg/dL High 120-200 HDL Cholesterol 53.0 mg/dL 40-60 VLDL (Calc.) 28 mg/dL <31 Cholesterol/HDL 4.49 Ratio <5.00 LDL (Calc.) 157 mg/dL High 0-99 23 Comp. Metabolic 03/13/2015 [facility] Glucose 108.2 mg/dL 65-[address] [place] [address] [phone] BUN 11.3 mg/dL 7-21 Co2 22.5 mmol/L [...] Assoc TSH 1.81 uIU/mL 0.5- 6.[address] [place] [address] [phone] CBC 03/13/2015 [facility] WBC 6.1 10^3/uL 4.8-10.[address] [place] [address] [phone] RBC 5.29 10^6/uL 4.2-6.1 HGB 15.7 g/dL 12.0-18.0 HCT 47.2 % 37-52 MCV 89.2 fL 80.0-99.9 MCH 29.7 pg 26.0-32.0 MCHC 33.3 g/dL 31.0-36.0 RDW 12.80 % 11.0-15.0 MPV 7.1 fL Low 7.4-10.4 Platelets 323 10^3/uL 130-400 Auto Diff 03/13/2015 [facility] Lymphocytes % 26.20 % 20.5- 51.[address] [place] [address] [phone] Monocytes % 7.60 % 1.7-9.3 Granulocyte % 66.2 % 42.2-75.2 Lymphocytes # 1.6 10^3/uL 0.6-4.1 Monocytes # 0.5 10^3/uL 0.0-1.8 Granulocyte # 4.0 10^3/uL 2.0-7.8 Laboratory test finding 03/13/2015 [facility] eGFR (Male) 99 >59 24 [address] [place] [address] [phone] 1 LDL(Calc.) invalid if triglycerides >400. 2 [...] 17 years of age. 7 . Britt Teles[employer] Manager Chemiluminescent Immunoassay Do NOT use interchangeably [...] mutation identified. . Comment: A point mutation ([id number]) in the factor II (prothrombin) gene is [...] mutations. This assay detects only the prothrombin [id number] mutation and does not measure genetic abnormalities [...] health care providers to discuss results at [phone] ([phone]). . Methodology: DNA analysis of the Factor II gene was performed by PCR amplification followed by restriction analysis. The diagnostic sensitivity is >99% for both. All the tests must be combined with clinical information for the most accurate interpretation. Molecular-based testing is highly accurate, but as in any laboratory test, diagnostic errors may occur. . Poort SR, et al. Blood. 1996; 88:3865-4484. Charlee DIAS. Circulation. 2004; 110:e15-e18. Pantera I, et al. Arterioscler Thromb Vasc Biol. 1999; 19:700-703. . Lan Daly, PhD, [facility] Iris Mueller, PhD, [facility] Mica Paredes, PhD, [facility] Tressa Mukherjee M.S., PhD, [facility] Sania Briceno, PhD, [facility] Abdirahman Vickers, PhD, [facility] John Khalil, PhD, [facility] 12 Result: Negative (no mutation found) . [...] the workup for venous thrombosis include the [id number] mutation in the factor II (prothrombin) gene, protein S and C deficiency, and antithrombin deficiencies. Anticardiolipin antibody and lupus anticoagulant analysis may be appropriate for certain patients, as well as homocysteine levels. . Contact your local [facility] for information on how to order additional testing if desired. . 13 Genetic counselors are available for health care providers to discuss results at [phone]). . Methodology: DNA analysis of the Factor [...] Lab Med 16:169-186. . Lan Daly, PhD, [facility] Iris Mueller, PhD, [facility] Mica Paredes, PhD, [facility] Tressa Mukherjee M.S., PhD, [facility] Sania Briceno, PhD, [facility] Abdirahman Vickers, PhD, [facility] John Khalil PhD, [facility] 14 Negative: <15 Indeterminate: 15 - 20 [...] mL/min/1.73m^2 Procedures Date Code Description Status 08/24/2017 [id number] Colonoscopy Completed 05/22/2009 [id number] Colonoscopy Completed Encounters Type Date Location Provider [...] am - Polo Scott M.D. at [facility] [id number] 8:30 am - Polo Scott M.D. at Main Mxeqog3903/29/2018 - Polo Scott M.D.Z00.00 Encounter for general adult medical examination without abnoE78.2 Mixed hyperlipidemiaNew Labs:LP (Lipid), Ordered: 03/29/18CMP, Ordered: Recommendations:PLEASE TRY TAKING ROSUVASTATIN 3 TIMES A WEEKZ86.711 Personal history of pulmonary osvxvdycO21.891 Personal history of nicotine purliqfbyhT50.3 Dietary counseling and inngmztytxgvJ48.35 Body mass index (BMI) 35.0-35.9, adultAllNew Medication:Shingrix 50 mcg/0.5ML - 0.5ml intramuscular x 1 on month 0, and 2-6 for 2 total dosesFollow up:6 months f/u, fasting blood work 1-2 weeks prior to next appt PLEASE BRING ALL YOUR PILL BOTTLES WITH YOU ON YOUR NEXT VISIT
[2018-10-27 13:12] VITALS: BP 128/75
== END 2018-10-27 13:12 | disposition home or self-care (01) ==
LOC: ED 12:32
DX: Z48.01 Encounter for change or removal of surgical wound dressing (principal)
CPT/HCPCS: 99281

== ENCOUNTER 2019-04-12 12:55 | Day surgery (SDC) | payer MEDICARE, OTHER ==
--- NOTE | 2019-04-01 09:27 | HP ---
CC: Dr. Polo Scott * PREOPERATIVE HISTORY AND PHYSICAL: DATE OF ADMISSION/SURGERY: 04/12/19 This patient is scheduled for same day surgery admission by Dr. Hinojosa on 04/12/19. DATE OF PREOPERATIVE HISTORY AND PHYSICAL EXAMINATION: 03/26/19. ATTENDING SURGEON: Dr. Edgard Hinojosa * (dictated by Crista Triana NP). CHIEF COMPLAINT: Drainage from abdominal incision. HISTORY OF PRESENT ILLNESS: The patient is a 68-year-old male, known to Dr. Hinojosa from laparotomy and small bowel resection with primary anastomosis for chronic perforation with abscess, thought possibly secondary to ingested foreign body on 10/12/18. He has a history of prior ventral hernia repair with mesh. The patient noticed a "blood blister" at the lower end of the midline abdominal scar for 1 month. He states this would scab over and then open and drain occasional pus. He denied any pain. Otherwise, he was feeling well with a normal appetite. No fevers or chills. No constipation or diarrhea. Dr. Hinojosa examined the patient and noted a granuloma at the inferior aspect of the midline abdominal scar; this was treated with silver nitrate. Dr. Hinojosa explained that there was a concern for a foreign body granuloma possibly due to a suture; a CAT scan of the abdomen and pelvis was ordered for further assessment; the results revealed an area of prior hernia repair adjacent to the umbilicus with focal thickening of tissue likely phlegmonous change. There was no definite recurrent ventral hernia and no drainable fluid. Therefore, on the patient's second visit, 03/08/19, Dr. Hinojosa noted that the patient continued to have drainage from the granuloma, and therefore, he recommended surgical exploration of the wound for debridement, the wound will be left open and may need a wound VAC dressing applied. Dr. Hinojosa discussed the above findings with the patient and the patient is agreeable to proceed. Dr. Hinojosa discussed the nature of the surgery, the rationale for the surgery, the relevant risks and benefits, and he knows he may spend an overnight in the hospital. The patient has had a chance to ask questions and stated that he understands the information and is satisfied with the answers given to his questions. He will sign surgical consent on the day of surgery. PAST MEDICAL HISTORY: Significant for pulmonary embolism, the most recent being in October 2018 and he also had subsegmental pulmonary emboli about 5 years ago. He has also had thrombophlebitis in the lower extremities. PAST SURGICAL HISTORY: Laparotomy with small bowel resection with primary anastomosis and lysis of adhesions in September [address] Hinojosa, ventral hernia repair with mesh, and right inguinal hernia repair. MEDICATIONS: 1. Xarelto 15 mg p.o. daily and he has been instructed by his primary care provider, Dr. Polo Scott, to hold the Xarelto for 3 days preoperatively and he will be bridged to Lovenox. He will take the last dose of Lovenox in the morning on the day before surgery. 2. Fish oil 1200 mg p.o. t.i.d., which he will hold 1 week before surgery. 3. Centrum Adult Multivitamin daily. He is no longer taking daily aspirin. ALLERGIES: No known drug allergies. FAMILY HISTORY: No known anesthesia complications. No unusual bleeding disorders. The patient's brother at age 64 with multiple myeloma and had a history of deep vein thrombosis. SOCIAL HISTORY: He is ; he quit smoking in 1998. He drinks 1 glass of wine daily and is retired. He walks 3 miles daily. REVIEW OF SYSTEMS: Constitutional: No fevers, chills, excessive fatigue, or weight loss. Endocrine: No diabetes or thyroid disease. Hematologic: No easy bruising or bleeding while on the Xarelto. Respiratory: No dyspnea on exertion. No chronic cough. Cardiovascular: No anginal chest pain or palpitations. Gastrointestinal: No nausea, vomiting, diarrhea, GI bleeding, or constipation. No change in bowel habits. Genitourinary: No dysuria. Musculoskeletal: Normal strength and tone. Integumentary: No chronic rashes. Open wound, distal aspect of midline abdominal scar as described in history of present illness. Neurologic: No headache or blurred vision or areas of focal weakness or numbness. General: No previous anesthesia complications. No history of blood transfusions. Positive history of pulmonary embolism on two separate occasions and thrombophlebitis in the lower extremities. Psychiatric: No insomnia, anxiety, or depression reported. PHYSICAL EXAMINATION GENERAL SURVEY: The patient is a 68-year-old male, well developed, well nourished, in no acute distress. VITAL SIGNS: Height 73 inches, weight 230 pounds, body mass index 30.3. Blood pressure 112/76, pulse 72 and regular, respiratory rate 16, temperature 97.4 tympanic. HEENT: Benign. NECK: Supple. No cervical lymphadenopathy. LUNGS: Breath sounds bilaterally clear and equal. HEART: Regular rate and rhythm. No murmurs or rubs appreciated. ABDOMEN: Active bowel sounds. Midline scar with granuloma at the distal aspect approximately measuring 1 cm and draining serous drainage. The abdomen is soft and nondistended and nontender throughout. There are no palpable masses. There is bulging in the upper abdomen with abdominal flexion. GENITALIA: Deferred. RECTAL: Deferred. EXTREMITIES: Warm without edema or skin ulceration. NEUROLOGIC: Alert and oriented x3. Steady gait. SKIN: Warm, dry, and intact. IMPRESSION: Foreign body granuloma of the skin and subcutaneous tissue, midline abdominal scar. PLAN: Same day surgery admission to Dr. Hinojosa' service on 04/12/19, for surgical exploration of abdominal wound with debridement and possible wound VAC placement. LUIS E TRIANA NP [id number]/[facility] #: [id number] ROSE
[~2019-04-12 12:55] MED LIST: Acetaminophen TAB* 325 MG PO ONE; Buffered Lidocaine 1% SYRIN* 1 ML/SYRINGE INTRADERM ONE; Famotidine IV* 10 MG/ML 2 ML (20 mg) IV ONE; Gabapentin CAP(*) 300 MG PO ONE; Lactated Ringers 1000 ML Bag* 1,000 ML IV SCH
[2019-04-12] MEDS ORDERED: Gabapentin CAP(*) 300 MG ONE (13:36)
[2019-04-12] MEDS ORDERED: ceFAZolin 2 GM in NS PREMIX(*) 2 GM/100 ML BAG IVPB ONE (13:36)
[2019-04-12] MEDS ORDERED: Heparin VIAL(*) 5000 UNITS/ML VIAL (FIVE THOUSAND) ONE (13:36)
[2019-04-12] MEDS ORDERED: Buffered Lidocaine 1% SYRIN* 1 ML/SYRINGE INTRADERM ONE (13:36)
[2019-04-12] MEDS ORDERED: Famotidine IV* 10 MG/ML 2 ML (20 mg) ONE (13:36)
[2019-04-12] MEDS ORDERED: Acetaminophen TAB* 325 MG ONE (13:36)
[2019-04-12] MEDS ORDERED: Bupivacaine 0.25% EPI 200,000* 30 ML SDV ONE (15:52)
[2019-04-12] MEDS ORDERED: Lidocaine 1% INJ* 10 MG/ML 30 ML SDV ONE (15:52)
[2019-04-12] MEDS ORDERED: Midazolam* 1 MG/ML 5 ML VIAL (5 MG) ONE (15:52)
[2019-04-12] MEDS ORDERED: fentaNYL* 50 MCG/ML 2 ML VIAL (100 MCG VIAL) ONE (15:52)
[2019-04-12] MEDS ORDERED: Propofol* 10 MG/ML 20 ML BTL ONE (15:58)
[2019-04-12] MEDS ORDERED: HYDROcodone/ACETAMIN 5-325 MG* 1 TAB PO PRN (16:55)
--- NOTE | 2019-04-12 17:11 | OP ---
Operative Report - Blank - Operative Report Date of Operation: 04/12/19 Note: PREOP DX:chronic abdominal wound POSTOP DX:same PROC:abdominal wound exploration/debridement SURG:Mecenas ASSIST:Adriana ANES:Local/MAC; Abad EBL:Min IVF:LR SPEC:1) Culture of abdominal wound drainage 2)Debrided tissue of abdominal wall. DRAIN:None COMPL:none COND:stable FINDINGS:chronic abdominal wound with sinus tract to abdominal wall hernia mesh.
[2019-04-12 18:15] VITALS: BP 136/81
--- NOTE | 2019-04-16 10:49 | OP ---
CC: Polo Scott MD OPERATIVE REPORT: DATE OF OPERATION: 04/12/19 DATE OF : 48. SURGEON: Edgard Hinojosa MD ASSET MANAGEMENT COORDINATOR: Dr. Mistry. ANESTHESIOLOGIST: Dr. Asencio. ANESTHESIA: General anesthesia. PRE-OP DIAGNOSIS: Foreign body granuloma of the skin and subcutaneous tissues. POST-OP DIAGNOSIS: Foreign body granuloma of the skin and subcutaneous tissues. OPERATIVE PROCEDURE: Surgical exploration of abdominal wound with debridement. ESTIMATED BLOOD LOSS: Minimal. IV FLUIDS: Crystalloids. SPECIMEN: Debrided tissue. COMPLICATIONS: None. COUNT: Instrument, needle, and sponge counts were correct. DESCRIPTION OF PROCEDURE: The patient was brought to the operating room and placed on the table supine. Sequential compression devices were placed on both lower extremities. After patient was administered anesthesia, the patient was positioned and padded appropriately. He was prepped and draped in the usual sterile fashion. Time-out was performed. Inspection of the wound revealed purulent drainage. Cultures were sent of this. Local anesthetic was infiltrated into the skin and soft tissue prior to making each incision. The incision was created circumferentially around the draining sinus tract using a cautery and then the tissue was cored out with the cautery diving into the subcutaneous tissues. Granulation tissue was encountered and there were portions of abdominal wall mesh as well as Prolene suture and Ethibond suture that were sharply debrided from the tissues. After debriding all of the visible mesh and suture within the wound, irrigation was performed. There was no evidence of purulence in the depths of the wound and there was no granulation tissue left in the wound. The wound was packed with saline- soaked gauze covered with Tegaderm. The patient was awakened and transferred to Recovery stable. [id number]/[facility] #: [id number] [facility]
== END 2019-04-12 17:55 | disposition home or self-care (01) ==
LOC: OR 12:55
PROVIDERS: ATTEND Surgery
DX: T81.89XA Other complications of procedures, not elsewhere classified, initial encounter (principal); Z86.711 Personal history of pulmonary embolism; Z79.01 Long term (current) use of anticoagulants; Z87.891 Personal history of nicotine dependence
CPT/HCPCS: 87070; 87073; 87186; 87205; 88305; A9270-GY; J0690; J1644; J2250; J2704; J3010

== ENCOUNTER 2021-01-01 11:32 | Inpatient (IN) ==
[~2021-01-01 11:32] MED LIST changes: -Acetaminophen TAB* 325 MG PO ONE; +Buffered Lidocaine 1% SYRIN 1 ml INTRADERM ONE; -Buffered Lidocaine 1% SYRIN* 1 ML/SYRINGE INTRADERM ONE; +Dexamethasone IV 4 MG/ML VIAL 1 ml VIAL ONE; -Famotidine IV* 10 MG/ML 2 ML (20 mg) IV ONE; -Gabapentin CAP(*) 300 MG PO ONE; +Glycopyrrolate IV 0.2 MG/ML 1 ML VIAL ONE; +HYDROmorphone 1 MG/1 ML SYRINGE ONE; -Lactated Ringers 1000 ML Bag* 1,000 ML IV SCH; +Lactated Ringers 1000 ml BAG 1,000 ML IV SCH; +Lidocaine 2% PF 5 ML VIAL ONE; +Ondansetron 4 mg VIAL 2 MG/ML 2 ml VIAL ONE; +Phenylephrine IV 10 MG/ML 1 ml VIAL ONE; +Propofol 10 MG/ML 20 ML BTL ONE; +Rocuronium 50 mg VIAL 10 mg/ml 5 ml VIAL (50 mg) ONE
[2021-01-01] MEDS ORDERED: Heparin 5000 UNITS/ML 1 mL VIAL ONE (11:45)
[2021-01-01] MEDS ORDERED: ceFAZolin 2 GM in NS PREMIX 2 GM/100 ML BAG IVPB ONE ×2 (11:45→16:54)
[2021-01-01] MEDS ORDERED: Propofol 10 MG/ML 20 ML BTL ONE (11:59)
[2021-01-01] MEDS ORDERED: Ketamine HCL 50 mg/ml 10 ml VIAL (500 MG) ONE (12:12)
[2021-01-01 12:31] LABS: ABS Eosinophils 0.1 10^3/ul (0-0.6); ABS Lymphocytes 1.7 10^3/ul (1.0-4.8); ABS Monocytes 0.5 10^3/ul (0-0.8); ABS Neutrophils 4.1 10^3/ul (1.5-7.7); Eosinophil % 1.5 %; Hematocrit 43 % (42-52); Hemoglobin 14.4 g/dL (14.0-18.0); Lymphocyte % 26.2 %; Mean Corpuscular HGB Conc 34 g/dL (31-36); Mean Corpuscular Hemoglobin 30 pg (27-31); Mean Corpuscular Volume 88 fL (80-94); Mean Platelet Volume 7.3 fL (7.4-10.4); Nucleated Red Blood Cells % 0.1; Platelet Count 225 10^3/uL (150-450); Red Blood Count 4.82 10^6 /uL (4.18-5.48); Red Cell Distribution Width 14 % (10-15); White Blood Count 6.5 10^3/uL (3.5-10.8)
[2021-01-01] MEDS ORDERED: Dexamethasone IV 4 MG/ML VIAL 1 ml VIAL ONE (12:34)
[2021-01-01] MEDS ORDERED: Bupivacaine 0.5% SDV PF 30ML VIAL ONE (12:44)
[2021-01-01 12:54] LABS: Calcium 8.9 mg/dL (8.6-10.3); EGFR African American 122.3 (>60); EGFR Non-African American 101.1 (>60); Potassium 3.9 mmol/L (3.5-5.0)
[2021-01-01] MEDS ORDERED: DiMENhydriNATE IV 50 mg/ml 1 ml VIAL IV PUSH PRN (13:31)
[2021-01-01] MEDS ORDERED: diPHENhydraMINE IV 50 MG/ML 1 ml VIAL (BENADRYL) IV PRN (13:31)
[2021-01-01] MEDS ORDERED: fentaNYL 100 mcg/2 ml 50 MCG/ML VIAL IV PRN (13:31)
[2021-01-01] MEDS ORDERED: HYDROmorphone 1 MG/1 ML SYRINGE IV PRN (13:31)
[2021-01-01] MEDS ORDERED: Naloxone 0.4 mg VIAL 0.4 mg/ml 1 ml VIAL IV PRN (13:31)
[2021-01-01] MEDS ORDERED: Rocuronium 50 mg VIAL 10 mg/ml 5 ml VIAL (50 mg) ONE ×4 (13:34→16:45)
[2021-01-01] MEDS ORDERED: Glycopyrrolate IV 0.2 MG/ML 1 ML VIAL ONE (13:38)
[2021-01-01] MEDS ORDERED: fentaNYL 100 mcg/2 ml 50 MCG/ML VIAL ONE (17:10)
[2021-01-01] MEDS ORDERED: Sugammadex 500 MG/5 ML 5 ml VIAL IV PUSH ONE (17:39)
[2021-01-01] MEDS ORDERED: oxyCODONE/Acetamin 5/325 mg TAB PO PRN (18:28)
[2021-01-01] MEDS ORDERED: Ondansetron 4 mg VIAL 2 MG/ML 2 ml VIAL IV PRN (18:28)
[2021-01-01] MEDS ORDERED: Naloxone 0.4 mg VIAL 0.4 mg/ml 1 ml VIAL IV PUSH PRN (18:37)
[2021-01-01] MEDS ORDERED: HYDROmorphone PCA 20 MG/20 ML PCA.SYRING PCA SCH (19:00)
[2021-01-01] MEDS ORDERED: HYDROmorphone 1 MG/1 ML SYRINGE ONE (19:01)
[2021-01-01] MEDS: ceFAZolin 2 GM in NS PREMIX 2 GM/100 ML BAG IVPB SCH (22:10)
[2021-01-02] MEDS: ceFAZolin 2 GM in NS PREMIX 2 GM/100 ML BAG IVPB SCH ×3 (05:52→23:31)
[2021-01-02] MEDS: Lactated Ringers 1000 ml BAG 1,000 ML IV SCH ×2 (05:52→14:26)
[2021-01-02 06:11] LABS: ABS Lymphocytes 0.8 10^3/ul (1.0-4.8); ABS Monocytes 1.4 10^3/ul (0-0.8); ABS Neutrophils 11.9 10^3/ul (1.5-7.7); Hematocrit 40 % (42-52); Hemoglobin 12.9 g/dL (14.0-18.0); Lymphocyte % 5.8 %; Mean Corpuscular HGB Conc 33 g/dL (31-36); Mean Corpuscular Hemoglobin 29 pg (27-31); Mean Corpuscular Volume 90 fL (80-94); Mean Platelet Volume 7.8 fL (7.4-10.4); Platelet Count 232 10^3/uL (150-450); Red Blood Count 4.43 10^6 /uL (4.18-5.48); Red Cell Distribution Width 14 % (10-15); White Blood Count 14.1 10^3/uL (3.5-10.8)
[2021-01-02 06:35] LABS: Calcium 7.9 mg/dL (8.6-10.3); EGFR African American 113.7 (>60); EGFR Non-African American 93.9 (>60); Potassium 4.1 mmol/L (3.5-5.0)
[2021-01-02] MEDS: Heparin 5000 UNITS/ML 1 mL VIAL SUBCUT SCH ×3 (08:30→22:59)
[2021-01-03] MEDS: Lactated Ringers 1000 ml BAG 1,000 ML IV SCH ×3 (02:12→22:56)
[2021-01-03] MEDS: Heparin 5000 UNITS/ML 1 mL VIAL SUBCUT SCH (05:41)
[2021-01-03] MEDS: ceFAZolin 2 GM in NS PREMIX 2 GM/100 ML BAG IVPB SCH ×3 (05:41→22:56)
[2021-01-03 06:08] LABS: Hematocrit 36 % (42-52); Hemoglobin 12.4 g/dL (14.0-18.0)
[2021-01-03] MEDS ORDERED: HYDROmorphone 1 MG/1 ML SYRINGE IV SLOW PU PRN (12:08)
[2021-01-03] MEDS ORDERED: diPHENhydraMINE IV 50 MG/ML 1 ml VIAL (BENADRYL) SLOW PUSH ONE (23:00)
[2021-01-04] MEDS: ceFAZolin 2 GM in NS 100 MLS Q8H (Pharmacy Admix) IVPB SCH ×2 (05:42→14:38)
[2021-01-04 11:14] VITALS: BP 114/71
== END 2021-01-04 16:55 | disposition home or self-care (01) | DRG 337 ==
LOC: AA 11:32 → SSU 19:37
PROVIDERS: ADMIT Surgery; ATTEND Surgery

== ENCOUNTER 2024-03-29 21:10 | Observation (INO) ==
[2024-03-29 21:56] LABS: ABS Basophils 0.1 10^3/uL (0.0-0.1); ABS Monocytes 0.8 10^3/uL (0.0-1.1); ABS Neutrophils 8.9 10^3/uL (1.5-7.6); Eosinophil % 0.1 %; Hematocrit 45.2 % (38-53); Hemoglobin 14.9 g/dL (13.2-16.3); Lymphocyte % 16.6 %; Mean Corpuscular Hemoglobin 28.8 pg (27-33); Mean Corpuscular Volume 87.2 fL (80-97); Mean Platelet Volume 7.4 fL (7.5-11.2); Platelet Count 357 10^3/uL (150-450); Red Blood Count 5.18 10^6/uL (4.06-5.63); Red Cell Distribution Width 14.7 % (12-17); White Blood Count 11.8 10^3/uL (3.6-10.2)
[2024-03-29 22:01] LABS: INR 1.73 (0.85-1.14)
[2024-03-29 22:36] LABS: Albumin 4.5 g/dL (3.2-5.2); Albumin/Globulin Ratio 1.5 (1-3); Calcium 10.1 mg/dL (8.6-10.3); Creatinine, Serum 0.88 mg/dL (0.67-1.17); Potassium 4.6 mmol/L (3.5-5.0); Total Bilirubin 0.8 mg/dL (0.2-1.0); Total Protein 7.5 g/dL (6.4-8.9); eGFR CKD-EPI 90.2 (>60)
[2024-03-29 23:35] LABS: High Sensitivity Troponin 1 Hr 6 pg/mL (<20)
[2024-03-29 23:39] LABS: C Reactive Protein 2.49 mg/L (<8.01)
[2024-03-30] MEDS: Iohexol 300 (CONTRAST) 10 ML SDV IV ONE (02:16)
[2024-03-30 03:21] LABS: Urine Appearance Turbid; Urine Color Yellow; Urine Ketones 2+ (Negative); Urine Protein Trace (Negative); Urine Urobilinogen Negative (Negative)
[2024-03-30 03:22] LABS: Urine Bilirubin Negative (Negative); Urine Blood Negative (Negative); Urine Glucose Negative (Negative); Urine Nitrite Negative (Negative); Urine Squamous Epithelial Cell Present /HPF (Absent)
[2024-03-30] MEDS ORDERED: Ondansetron 4 mg VIAL 2 MG/ML 2 ml VIAL IV PRN (05:39)
[2024-03-30] MEDS ORDERED: Acetaminophen IV 1 GM/100ML 1,000 MG/100 ML BAG IV PRN (05:39)
[2024-03-30] MEDS ORDERED: Morphine 2 MG/ML SYRINGE IV PRN (05:41)
[2024-03-30] MEDS: NS 0.9% 1000 ml BAG 1,000 ML IV SCH (06:28)
[2024-03-30] MEDS: Enoxaparin 40 MG/0.4 ML SYR SUBCUT SCH (06:30)
[2024-03-30] MEDS: Pantoprazole VIAL 40 MG VIAL IV SCH (12:14)
[2024-03-30 14:26] VITALS: BP 141/81
== END 2024-03-30 17:56 | disposition home or self-care (01) ==
LOC: EDHOLD 21:10 → ED 21:10 → MED 03-30 07:50
PROVIDERS: ADMIT Internal Medicine; ATTEND Internal Medicine